=== PATIENT | female | born 1950 | race Caucasian/White ===

== ENCOUNTER 2017-10-25 08:14 | Day surgery (SDC) | payer MEDICARE, OTHER, SELFPAY ==
--- NOTE | 2017-10-24 17:33 | P.OP_ITS ---
Procedure & Clinicians Procedure: Date of service: October 25, 2017 Preoperative diagnoses: 1. Right nuclear sclerotic cataract astigmatism Cataract Postoperative diagnoses: 1. Cataract status post cataract surgery with phacoemulsification and toric intraocular lens implant Procedure: Phacoemulsification with posterior chamber intraocular lens implant Surgeon: Velia Hitchcock MD Complications: None Specimen: None Implant: [id number] [place] 104 Blood loss: None Anesthesia: Retrobulbar with monitored standby Anesthesiologist: Esa Nielson M.D. Description of procedure: Patient is a female year old with decreased vision due to cataract which is affecting activities of daily living. She wants surgery to improve vision. She was taken to the operating room. Proparacaine drops are placed and indeliable ink parnell placed at the 90 and 180 degree meridians. She was given IV sedation. A retrobulbar block insert consisting of 6 cc of 2% xylocaine without epinephrine mixed half and half with 0.5% Marcaine with 1 cc of hyaluronidase added is placed between the medial and lateral 1/3 of the inferior orbital rim. Lid akinesia is obtain with 1% xylocaine with epinephrine infiltrated along the lid margin. The eye is manually massaged for 30 sec, prepped using Betadine solution, and draped in the usual sterile fashion. Some awareness is present and additional Fentanyl is given. Temporal approach was made, a 1 mm side-port incision was made at the 7:30 position. Phenylephrine 1.5% mixed with 1% xylocaine 0.2 cc was placed into the anterior chamber. Viscoat followed by Healon was then placed. A 2.6 mm clear incision with a 2.6 mm blade was placed at the 170 degree meridian. A 360 degree capsulorrhexis style capsulotomy was then performed with a cystitome needle on a Healon. Hydrodelineation and hydrodissection were performed. The phacoemulsification unit is introduced, and sculpting notice used to groove the central lens. It is then removed in chopping mode. Epi nucleus is removed with epinuclear mode and irrigation aspiration was used to remove the peripheral cortex. The posterior capsule is polished. The intraocular lens is selected, inspected, power confirmed, and axis marked at 104 degrees. It wasplaced in the posterior chamber. The pupil was not constricted. The wound was stromally hydrated and tested for leaks, there was none it left sutureless. Vigamox 0.1 cc was placed into the anterior chamber. Kenalog 0.2 cc was placed in the superior subconjunctival space. A drop of antibiotic and was placed and the eye was patched and shielded. The patient was stable and returned to the recovery room in excellent condition. Dictated by: Velia Hitchcock MD Copy to: [facility] Same procedure as scheduled: Yes Surgeon: Velia Hitchcock Click Yes if Unassisted: No Anesthesia Type: Retrobulbar block Operative Notes Estimated Blood Loss (mL): 0 Complications: none
--- NOTE | 2017-10-24 17:33 | PM.PREOP ---
Pre-operative Note Interval Note Pre-op Check: History & Physical Reviewed by Physician
[2017-10-25 09:16] VITALS: BP 121/66; PULSE 55; RESP 16; TEMP 36.3; O2SAT 100
[2017-10-25] MEDS: CATARACT EYE COMPOUND (10 DROPS/SYRINGE) 3 DROPS EYE-OP (09:26)
[2017-10-25] MEDS: PROPARACAINE 0.5% OPHTH SOL 2 DROPS EYE-OP (09:26)
[2017-10-25 09:28] VITALS: BMI 32.5
--- NOTE | 2017-10-25 10:32 | SUR.OPER ---
Supine on eye stretcher, head on extension cradle secured with tape. Arms tucked at sides with blanket. Pillow under knees.
[2017-10-25] MEDS: LIDOCAINE 2% 4 ML, BUPIVACAINE 0.5% (PF) 4 ML, HYALURONIDASE 150 UNIT INJ (10:35)
[2017-10-25] MEDS: TRIAMCINOLONE 50 MG/5 ML VIAL INJ (10:36)
[2017-10-25] MEDS: PHENYLEPHRINE/LIDOCAINE 3ML VIAL (OR) EYE-OP (10:36)
[2017-10-25] MEDS: OFLOXACIN 0.3% OPHTH 5 ML 2 DROPS EYE-LEFT (10:36)
[2017-10-25] MEDS: NEOMYCIN/POLY/DEX OPHTH OINT 1 APPLIC EYE-LEFT (10:37)
[2017-10-25] MEDS: LIDOCAINE 1% W/EPI INJ 20 ML INJ (10:37)
[2017-10-25] MEDS: MOXIFLOXACIN OPHTH DROPS 3 ML BOTTLE 2 DROPS INJ (10:37)
[2017-10-25] MEDS: HYALURONATE SODIUM 10 MG/ML SYRINGE INJ (10:38)
[2017-10-25] MEDS: CHONDROIDTIN/SOD HYALURONATE 1.05 ML SYRINGE INTRAOCULA (10:38)
[2017-10-25] MEDS: BALANCED SALT IRRIG SOLN NO.2 500 ML, EPINEPHrine 1 MG IRR (10:39)
[2017-10-25] MEDS: TRYPAN BLUE 0.5 ML SYRINGE INJ (10:44)
[2017-10-25 11:22] VITALS: BP 120/68; PULSE 62; RESP 16; TEMP 36.2; O2SAT 99
--- NOTE | 2017-10-25 12:01 | PM.PREOP ---
Pre-operative Note Interval Note Pre-op Check: History & Physical Reviewed by Physician
== END 2017-10-25 11:32 | disposition home or self-care (01) ==
LOC: OR 08:16
PROVIDERS: PCP Family Medicine; Visit Provider Ophthalmology
DX: H25.11 Age-related nuclear cataract, right eye (principal); E11.9 Type 2 diabetes mellitus without complications; Z79.84 Long term (current) use of oral hypoglycemic drugs; I51.9 Heart disease, unspecified; I10 Essential (primary) hypertension; E03.9 Hypothyroidism, unspecified; Z86.73 Personal history of transient ischemic attack (TIA), and cerebral infarction without residual deficits
CPT/HCPCS: J0171; J2250; J2704; J3010; J3301; J3470; V2787

== ENCOUNTER → 2018-06-27 08:38 | Outpatient (CLI) | payer MEDICARE, OTHER, SELFPAY ==
--- NOTE | 2018-06-27 | DI.MG.S_ITS ---
BILATERAL DIGITAL SCREENING MAMMOGRAM 3D/2D WITH CAD: 06/27/2018 CLINICAL: Routine screening. Comparison is made to exams dated: 12/20/2016 mammogram - [facility] and 01/20/2015 mammogram - [facility]. The tissue of both breasts is predominantly fatty. Current study was also evaluated with a Computer Aided Detection (CAD) system. No significant masses, calcifications, or other findings are seen in either breast. There has been no significant interval change. IMPRESSION: NEGATIVE There is no mammographic evidence of malignancy. A 1 year screening mammogram is recommended. This exam was interpreted at Station ID: [id number]. NOTE: For mammograms, a report in lay terms will be sent to the patient. Approximately 15% of breast malignancies will not be visualized mammographically. In the management of a palpable breast mass, a negative mammogram must not discourage biopsy of a clinically suspicious lesion. Electronically Signed By: Karla cantrell/liborio:06/27/2018 10:57:32 letter sent: Normal Exam ACR BI-RADS Category 1: Negative 3341F
== END ==
PROVIDERS: PCP Family Medicine; Visit Provider Internal Medicine
DX: Z12.31 Encounter for screening mammogram for malignant neoplasm of breast (principal)
CPT/HCPCS: 77063; 77067

== ENCOUNTER 2018-11-21 10:41 | Day surgery (SDC) | payer MEDICARE, OTHER, SELFPAY ==
--- NOTE | 2018-11-21 | PATH_ITS ---
[facility] Accession Number: [id number] . 01 Material submitted: . colon - CECAL POLYP . 02 Diagnosis: Cecum, Polyp: Sessile serrated adenoma. V/11/22/2018 . 02 Electronically signed: . David Thornton MD, PhD, Pathologist NPI- [id number] . 01 Gross description: . CECAL POLYP: Received in formalin are 3 fragment(s) of benson, soft tissue measuring 0.1 x 0.1 x 0.1 cm to 0.5 x 0.4 x 0.2 cm which is entirely submitted and submitted entirely in 1 cassette(s) /DMC /DMC . 02 Pathologist provided ICD-10: D12.0 . 02 CPT . 688085 Performed at: 01 [facility] [address] [id number] MD Wolf Carpenter MD Phone: [phone] Performed at: 02 [facility] [address] [place], [place] [id number] MD Shelley Rosario MD Phone: [phone]
[2018-11-21 11:42] VITALS: BMI 69.9
[2018-11-21 11:54] VITALS: BP 132/74; PULSE 62; RESP 18; TEMP 36.3; O2SAT 100
[2018-11-21] MEDS: SODIUM CHLORIDE 0.9% 1,000 ML 200 ML IV (11:58)
--- NOTE | 2018-11-21 13:11 | P.HP_ITS ---
History of Present Illness Chief complaint: [id number] Patient History Social History household members: spouse Smoking Status: Former smoker Family & Social History Social History: household members spouse Tobacco & Substance use: Smoking Status Former smoker alcohol intake frequency 0-2 drinks per day Substance Use Type does not use Meds Home Medications Medication Instructions Recorded Confirmed Type atorvastatin [Lipitor] 40 mg PO HS #0 08/03/17 11/21/18 History aspirin [Aspir-Low] 81 mg PO QHS 09/29/17 11/21/18 History cholecalciferol (vitamin D3) 1,000 unit PO DAILY 09/29/17 11/21/18 History [Vitamin D3] ferrous sulfate 325 mg PO QDAY 09/29/17 11/21/18 History fexofenadine 180 mg PO QDAY 09/29/17 11/21/18 History levothyroxine [Synthroid] 50 mcg PO QDAY 09/29/17 11/21/18 History metformin 500 mg PO QDAY 09/29/17 11/21/18 History multivitamin 1 tab PO DAILY 09/29/17 11/21/18 History polyethylene glycol 3350 [Miralax] 17 g PO DAILY PRN 09/29/17 11/21/18 History ranitidine HCl 150 mg PO BID 09/29/17 11/21/18 History lisinopril 5 mg PO DAILY 10/18/17 11/21/18 History vitamin B complex tablet 1 tab PO DAILY 04/24/18 11/21/18 History quetiapine 50 mg tablet 100 mg PO HS #180 tab 06/12/18 11/21/18 Rx lamotrigine 100 mg tablet 100 mg PO DAILY #90 tab 10/24/18 11/21/18 Rx lamotrigine 200 mg tablet 200 mg PO DAILY #90 tab 10/24/18 11/21/18 Rx Allergies Allergy/AdvReac Type Severity Reaction Status Date / Time nitrofurantoin Allergy Severe SEVERE Verified 11/21/18 11:37 [From MACROBID] HEADACHES adhesive tape Allergy Intermediate Blister Verified 11/21/18 11:37 hydrocodone [From VICODIN] Allergy Unknown trouble Verified 11/21/18 11:37 breathing zolpidem [ZOLPIDEM] Allergy Unknown sleep Verified 11/21/18 11:37 walking/cooking indomethacin Allergy Dizziness Verified 11/21/18 11:37 oxycodone Allergy Rash Verified 11/21/18 11:37 codeine [CODEINE] AdvReac Unknown itching Verified 11/21/18 11:37 amoxicillin AdvReac Verified 11/21/18 11:37 tramadol AdvReac vertigo Verified 11/21/18 11:37 Review of Systems Review of Systems All systems reviewed & are unremarkable except as noted in HPI and below Exam Vital Signs (past 8 hours): - 11/21/18 11:54 Temperature 97.3 F L Pulse Rate 62 Respiratory Rate 18 Blood Pressure 132/74 Pulse Oximetry 100 Oxygen Delivery Method Room Air Narrative Exam Narrative: Awake alert and oriented x3, pupils equal round reactive to lig ht, heart regular rate and rhythm, lungs clear to auscultation bilaterally, abdomen nontender and nondistended, extremities without edema, no gross neurologic deficits noted Assessment & Plan Assessment & Plan narrative: Colonoscopy colon cancer screening
[2018-11-21] MEDS: MIDAZOLAM 5 MG/5 ML VIAL IV (14:15)
[2018-11-21] MEDS: fentaNYL 250 MCG/5 ML INJ IV (14:16)
[2018-11-21 14:33] VITALS: BP 105/58; PULSE 67; RESP 12; TEMP 35.9; O2SAT 98
[2018-11-21 14:38] VITALS: BP 118/57; PULSE 74; RESP 12; O2SAT 98
--- NOTE | 2018-11-21 14:39 | PM.OP.ENDO ---
Operative Date/Time/Diagnoses Date of procedure: 11/21/18 Procedure & Clinicians Study performed: Colonoscopy with snare polypectomy Moderate conscious sedation was administered by the endoscopy nurse and supervised by the endoscopist. The following parameters were monitored: Oxygen saturation, heart rate, blood pressure, and response to care. Sedation: 5 mg midazolam, 150 mcg fentanyl Indications: Colon cancer screening. Date of last colonoscopy unknown Procedure Notes Procedure in detail: Prior to the procedure, history and physical was performed, and patient medications and allergies were reviewed. Preprocedure nursing history and assessment was reviewed. Patient identification and proposed procedure were verified by the physician and nurse in the procedure room. The physical status of the patient was reassessed after the procedure. After informed consent was obtained including risks, benefits, and alternatives, the scope was passed under direct vision. Throughout the procedure, the patient's blood pressure, pulse, and oxygen saturations were monitored continuously. The colonoscope was introduced through the anus and advanced to the cecum as identified by the appendiceal orifice and ileocecal valve. The patient tolerated the procedure well. Bowel prep was deemed adequate to detect polyps greater than 5 mm. Perianal and digital rectal examinations were unremarkable. Retroflexion in the rectum was unrevealing A 6 mm sessile polyp was removed from the cecum with a cold snare and retrieved A moderate amount of liquid stool was noted throughout the entire colon. Lavage was performed with adequate visualization Impression: 6 mm cecal polyp removed Sedation minutes: 24 Complications: other (EBL minimal. No complications) Plan for aftercare: Follow-up pathology results Repeat colonoscopy at a date to be determined based on pathology results Resume home medications Resume previous diet Patient has a contact number available for emergencies. The signs and symptoms of potential delayed complications were discussed with the patient. Return to normal activities tomorrow. Written discharge instructions were provided to the patient. Discharged home with escort
[2018-11-21 14:43] VITALS: BP 116/68; PULSE 69; RESP 11; O2SAT 96
[2018-11-21 15:07] VITALS: BP 138/68; PULSE 58; RESP 16; TEMP 37; O2SAT 100
== END 2018-11-21 15:13 | disposition home or self-care (01) ==
PROVIDERS: PCP Family Medicine; Visit Provider Internal Medicine
PROC: 0DJD8ZZ Inspection of Lower Intestinal Tract, Via Natural or Artificial Opening Endoscopic (ICD-10-PCS; CPT 45378; principal; 2018-11-21 13:00)
DX: Z12.11 Encounter for screening for malignant neoplasm of colon (principal); Z87.891 Personal history of nicotine dependence; D12.0 Benign neoplasm of cecum
CPT/HCPCS: 45385; 88305; J2250; J3010

== ENCOUNTER → 2018-12-13 10:27 | Outpatient (CLI) | payer MEDICARE, OTHER, SELFPAY ==
--- NOTE | 2018-12-13 15:16 | P.PCN_ITS ---
Cardiac Stress Test Report Referral & Results Date Patient Seen: 12/13/18 Requesting provider: James Brandon Indication: Abnormal standard treadmill Rest ECG: Unremarkable Procedure Note: After both written and verbal informed consent the patient had an IV started by the diagnostic imaging RN and then was hooked up to the treadmill monitoring system. The patient was placed on the treadmill at 1 mile an hour with no elevation and was then injected with the Crys scan material. The Cardiolite was then immediately administered. The patient spent an additional 2-3 minutes on the treadmill before being returned to the [facility] in the supine position. The patient had a normal response to all infused materials. Impression: See perfusion imaging report for details regarding possible ischemia Please note: Actual ECG tracings can be found in the PACS system.
--- NOTE | 2018-12-13 16:45 | DI.NM.S_ITS ---
DATE OF SERVICE: 12/13/2018 PROCEDURE PERFORMED: Pharmacologic stress and rest myocardial perfusion imaging with gating to assess ejection fraction and regional wall motion performed as a 1-day protocol. ORDERING PROVIDER: James Brandon MD. INDICATIONS: The patient is an 68-year-old female with exertional dyspnea and chest discomfort with an abnormal standard exercise treadmill test. CARDIAC STRESS: Per protocol, 0.4 mg of regadenoson was infused, augmented by low-level walking on the treadmill. With this she had dyspnea but no reported chest discomfort. She had a normal hemodynamic response. Her resting ECG is normal and there are no ischemic changes or arrhythmias with stress. Per protocol, she was injected with 26.4 mCi of technetium-99 Myoview at peak stress and imaged 30 minutes later using a gated SPECT protocol. Previously, she had been injected with 11.3 mCi of technetium-99 Myoview and imaged 30 minutes after that injection for the resting images. FINDINGS: 1. Raw Data: There is fair myocardial tracer uptake with clear moderate breast attenuation artifact noted. The lung/heart ratio is at the upper limits of normal at 0.40 and the TID ratio is normal at 1.03. 2. Quantitative Gated SPECT: Post stress ejection fraction is estimated at 84% without any focal wall motion abnormality. Specifically, the anterior wall and anteroapex have normal contractility. The resting ejection fraction is estimated at 79% with a resting end-diastolic volume of 66 mL. 3. Myocardial Perfusion Imaging: Post stress supine images shows a fairly normal myocardial perfusion imaging pattern but with a very subtle defect in the [id number] anterior septum in a pattern that would be consistent with breast attenuation artifact and supported by its improvement on the prone images, although it does not completely resolve. The resting images show an identical perfusion pattern without any clear areas of improvement. CONCLUSION: 1. Probable normal myocardial perfusion study. 2. Subtle, fixed, [id number] anterior defect that nearly resolves on prone imaging consistent with breast attenuation artifact. There is no concerning areas of myocardial ischemia or previous myocardial infarction. 3. Normal left ventricular systolic function without any focal wall motion abnormality. 4. No apparent angina or ECG changes of ischemia with pharmacologic vasodilator stress. Yen Sheikh - MARILYN/jess/ doc#: [id number]/job#: [id number] dd: 12/13/2018 16:26:00 dt: 12/13/2018 16:34:00 DICTATING MD/COPIES TO: Fernando Mann MD; James Brandon MD COPIES MNE: ROE AMARO
== END ==
PROVIDERS: PCP Internal Medicine; Visit Provider Internal Medicine
DX: R07.89 Other chest pain (principal); R06.09 Other forms of dyspnea
CPT/HCPCS: 78452; 93016; 93017; 93018; A9502; J2785

== ENCOUNTER → 2018-12-28 08:48 | Outpatient (CLI) | payer MEDICARE, OTHER, SELFPAY ==
--- NOTE | 2018-12-28 | DI.US.S_ITS ---
PROCEDURE: US THYROID INDICATIONS: THYROID NODULE TECHNIQUE: Real-time scanning was performed of the thyroid gland, with image documentation. COMPARISON: None. FINDINGS: Right: Thyroid lobe measures 4.6 x 1.8 x 1.7 cm, and is homogeneous in echotexture. Left: Thyroid lobe measures 4.2 x 1.4 x 1.5 cm, and is homogenous in echotexture. Isthmus: 3 mm thick. Nodule number: 1 Location: Right superior pole Size: 1.9 x 1.0 x 1.7 cm. Composition: Cystic Echogenicity: Anechoic Shape: wider than tall. Margins: Smooth Echogenic foci: Macrocalcifications Total points: 1 ACR TI-RADS category: Benign Nodule number: 2 Location: Right mid lobe Size: 1.1 x 0.6 x 0.9 cm. Composition: Cystic Echogenicity: Anechoic Shape: wider than tall. Margins: Smooth Echogenic foci: Macrocalcifications Total points: 1 ACR TI-RADS category: Benign Nodule number: 3 Location: Left upper pole Size: 0.5 x 0.4 x 0.5 cm. Composition: Cystic Echogenicity: Anechoic Shape: wider than tall. Margins: Smooth Echogenic foci: None Total points: Zero ACR TI-RADS category: Benign IMPRESSION: Multiple benign bilateral thyroid cysts as above. FNA not needed. ACR TI-RADS definitions and recommendations: TI-RADS 1 (benign): 0 points. FNA not needed. TI-RADS 2 (not suspicious): 2 points. FNA not needed. TI-RADS 3 (mildly suspicious): 3 points. * FNA if 2.5 cm or larger, follow up if 1.5 cm or larger (at 1, 3, and 5 years). TI-RADS 4 (moderately suspicious): 4-6 points. * FNA if 1.5 cm or larger, follow up if 1 cm or larger (at 1, 2, 3, and 5 years). TI-RADS 5 (highly suspicious): 7 points or more. * FNA if 1 cm or larger, follow up if 0.5 cm or larger (every year for 5 years). Dictated by: Dank Knapp M.D. on 12/28/2018 at 14:12 Approved by: Dank Knapp M.D. on 12/28/2018 at 14:23
== END ==
PROVIDERS: PCP Internal Medicine; Visit Provider Internal Medicine
DX: E04.2 Nontoxic multinodular goiter (principal)
CPT/HCPCS: 76536

== ENCOUNTER 2019-04-24 01:14 | Emergency (ER) | payer MEDICARE, OTHER, SELFPAY ==
[2019-04-24 01:28] VITALS: BP 135/57; PULSE 72; RESP 20; TEMP 36.6; O2SAT 100
--- NOTE | 2019-04-24 01:34 | DI.RAD.S_ITS ---
PROCEDURE: XR CHEST 1V INDICATIONS: cough, recent diagnosis of pneumonia TECHNIQUE: One view of the chest was acquired. COMPARISON: None. FINDINGS: Surgical changes and devices: Cholecystectomy clips. Lungs and pleura: Lungs are clear. No pleural effusions or pneumothorax. Mediastinum: Mediastinal contours appear normal. Heart size is normal. Bones and chest wall: No suspicious bony lesions. Overlying soft tissues appear unremarkable. IMPRESSION: No acute cardiopulmonary disease process. Dictated by: Cassy Huizar MD, PhD on 04/24/2019 at 8:47 Approved by: Cassy Huizar MD, PhD on 04/24/2019 at 8:48
--- NOTE | 2019-04-24 01:34 | ED_ITS ---
HPI - URI/Sore Throat General Chief Complaint: Upper Respiratory Symptoms Stated Complaint: has pneumonia coughing spasms hard to breath Time Seen by Provider: 04/24/19 01:19 Source: patient Mode of arrival: Ambulatory Limitations: no limitations History of Present Illness HPI Narrative: A 68-year-old female comes into the emergency department with complaint of pneumonia that is currently being treated with azithromycin. Patient states she was diagnosed clinically. She did have a chest x-ray was started on azithromycin on Monday, she had 2 tablets the day and 1 tablet on Monday. Patient denies fevers. She felt maybe a little chilled. She has had a productive cough that she states was very gross thick yellow and multi colored and is now become more clear and decreased but she continues to have a pretty significant cough that is sometimes a spasm of coughing. She has not vomited but has coughed up a lot of phlegm. She does not feel tight or wheezy but does have a history of asthma. She uses Flovent as needed and sometimes albuterol. She did try albuterol once with minimal improvement. She denies any vomiting, denies any abdominal pain, denies any GI or urinary symptoms. She denies any swelling in her lower extremities. she denies any chest pain except when she is actively coughing. She denies any hemoptysis. She takes medication for bipolar, hypertension and dyslipidemia, hypothyroid. Related Data Home Medications Medication Instructions Recorded Confirmed atorvastatin [Lipitor] 40 mg PO HS #0 08/03/17 03/28/19 aspirin 81 mg PO QHS 09/29/17 03/28/19 ferrous sulfate 325 mg PO QDAY 09/29/17 03/28/19 fexofenadine 180 mg PO QDAY 09/29/17 03/28/19 levothyroxine 50 mcg PO QDAY 09/29/17 03/28/19 metformin 500 mg PO QDAY 09/29/17 03/28/19 multivitamin 1 tab PO DAILY 09/29/17 03/28/19 polyethylene glycol 3350 [Miralax] 17 g PO DAILY PRN 09/29/17 03/28/19 ranitidine HCl 150 mg PO BID 09/29/17 03/28/19 lisinopril 5 mg PO DAILY 10/18/17 03/28/19 vitamin B complex 1 tab PO DAILY 04/24/18 03/28/19 albuterol sulfate 90 mcg/actuation INHALATION 01/29/19 03/28/19 aerosol inhaler cholecalciferol (vitamin D3) 1,000 2,000 unit PO DAILY cap 01/29/19 03/28/19 unit capsule fluticasone propionate 110 INHALATION 01/29/19 03/28/19 mcg/actuation HFA aerosol inhaler omeprazole 20 mg capsule,delayed 20 mg PO BID 02/25/19 03/28/19 release Previous Rx's Medication Instructions Recorded quetiapine 50 mg tablet 100 mg PO HS #180 tab 06/12/18 lamotrigine 100 mg tablet 100 mg PO DAILY #90 tab 10/24/18 lamotrigine 200 mg tablet 200 mg PO DAILY #90 tab 10/24/18 gabapentin 300 mg capsule 300 mg PO TID #270 cap 01/29/19 quetiapine 25 mg tablet See Rx Instructions PO BID #90 tab 01/29/19 lithium carbonate 300 mg capsule 300 mg PO BEDTIME #90 cap 03/28/19 benzonatate 200 mg PO TID PRN #20 cap 04/24/19 Allergies Allergy/AdvReac Type Severity Reaction Status Date / Time nitrofurantoin Allergy Severe SEVERE Verified 03/28/19 12:59 [From MACROBID] HEADACHES adhesive tape Allergy Intermediate Blister Verified 03/28/19 12:59 hydrocodone [From VICODIN] Allergy Unknown trouble Verified 03/28/19 12:59 breathing zolpidem [ZOLPIDEM] Allergy Unknown sleep Verified 03/28/19 12:59 walking/cooking indomethacin Allergy Dizziness Verified 03/28/19 12:59 oxycodone Allergy Rash Verified 03/28/19 12:59 codeine [CODEINE] AdvReac Unknown itching Verified 03/28/19 12:59 amoxicillin AdvReac Verified 03/28/19 12:59 tramadol AdvReac vertigo Verified 03/28/19 12:59 Review of Systems Review of Systems ROS Unobtainable: All systems reviewed & are unremarkable except as noted in HPI and below Constitutional Constitutional: Reports chills, Denies fever(s), Denies lethargy and Denies weakness Cardiovascular Cardiovascular: Denies chest pain, Denies edema, Denies irregular heart rhythm, Denies lightheadedness, Denies palpitations, Denies dyspnea, Denies dyspnea on exertion and Denies orthopnea Respiratory Respiratory: Reports change in phlegm color, Reports chest congestion, Reports cough, Denies hemoptysis, Reports excessive phlegm production (Improving), Denies pain on inspiration, Reports pain with cough, Denies dyspnea, Denies dyspnea on exertion, Denies stridor and Denies wheezing Gastrointestinal Gastrointestinal: Denies abdominal pain, Denies change in bowel habits, Denies diarrhea, Denies nausea and Denies vomiting Genitourinary Genitourinary: Denies hematuria, Denies urinary frequency, Denies dysuria, Denies flank pain and Denies urinary urgency Musculoskeletal Musculoskeletal: Denies back pain Integumentary/Breasts Skin/Breast: Denies rash Neurologic Neurologic: Denies weakness Endocrine Endocrine: Denies palpitations Allergic/Immunologic Allergic/Immunologic: Denies wheezing Patient History Social History household members: spouse Smoking Status: Former smoker alcohol intake frequency: 0-2 drinks per day Substance Use Type: does not use Exam Narrative Exam Narrative: GEN: well nourished, well appearing obese female, alert and leah ented x 3, patient appears to be in mild distress. HEENT: Atraumatic, pupils are equal round reactive to light, extraocular movements are intact, nares are clear, TMs are clear with no fluid. Throat is without any exudates, erythema, tonsillar enlargement or uvular deviation, positive for postnasal drip. HEART: Regular rate and rhythm without murmur, clicks, rubs. LUNGS:Lungs clear to auscultation, no wheezes, rales, crackles, chest moves symmetrically, no tachypnea, accessory muscle use. Patient has a very dry almost barky cough. ABD:bowel sounds normal, soft, non-tender, no guarding, rebound, rigidity, no masses noted, no hepatosplenomegaly :No CVA tenderness MSCL: Non-tender, no muscle atrophy, muscles strength 5/5 upper and lower extremities, full range of motion, normal gait NEURO:CN 2-12 intact, sensation normal. Initial Vital Signs Initial Vital Signs: Vital Signs Temperature 97.9 F 04/24/19 01:28 Pulse Rate 72 04/24/19 01:28 Respiratory Rate 20 04/24/19 01:28 Blood Pressure 135/57 L 04/24/19 01:28 Pulse Oximetry 100 04/24/19 01:28 Course Orders Ordered: ED Orders 04/24/19 01:34 XR chest 1V Stat Discontinued Medications Albuterol (Ventolin) 2.5 mg INH NOW ONE Stop: 04/24/19 01:37 Last Admin: 04/24/19 01:39 Dose: 2.5 mg Documented by: RAEGANARP Vital Signs Vital signs: Vital Signs - 8 hr 04/24/19 01:28 04/24/19 01:39 04/24/19 02:31 Temperature 97.9 F Pulse Rate 72 76 Respiratory Rate 20 18 Blood Pressure 135/57 L 120/60 Pulse Oximetry 100 96 98 MDM - URI/Sore Throat Imaging Data Chest x-ray: My impression: nap, no pulm edema, no pneumothorax, no nodules, no fracture. normal mediastinum. MDM Narrative Medical decision making narrative: Patient has history of asthma, had one albuterol neb and on recheck she is her cough is improved although not completely resolved. Discussed with patient she does not have a spacer so plan for spacer training, she does have an albuterol inhaler at home. She can uses as needed. We discussed she can stop her Z-S[place] if she would like to but it may be helpful although I do not appreciate a pneumonia or chest x-ray she can continue her Z-S[place]. Patient and I discussed trying some Tessalon Perles to see if this helps with her cough. She states she is allergic to codeine. We discussed signs and symptoms to return for and strict return precautions. Patient is comfortable the plan and feeling much better at this time. Discharge Plan Departure Patient Disposition: Home Clinical Impression: Bronchitis Discharge Date/Time: 04/24/19 02:32 Instructions: DI for Acute Bronchitis Activity Restrictions/Additional Instructions: Follow up with your primary care if your symptoms are not improving. You may continue your prescription for antibiotics until gone. You may use albuterol 1-2 puffs every 4 hours as needed for cough or any wheezing. Use this with the spacer you received today. May take Tessalon 1 capsule every 8 hours as needed for cough. Continue home medications as prescribed. Return to the ER for fevers greater 100.4 F, rapidly worsening shortness of breath, coughing up blood, new chest pain or pressure, passing out, swelling in her lower extremities or other new or concerning symptoms. Prescriptions: New benzonatate 200 mg capsule 200 mg PO TID PRN (Reason: cough) Qty: 20 RF: 0 No Action vitamin B complex [B Complex-Vitamin B12] tablet 1 tab PO DAILY RF: 0 quetiapine 50 mg tablet 100 mg PO HS Qty: 180 RF: 3 Flovent HFA 110 mcg/actuation HFA aerosol inhaler INHALATION RF: 0 albuterol sulfate 90 mcg/actuation HFA aerosol inhaler INHALATION RF: 0 gabapentin 300 mg capsule 300 mg PO TID Qty: 270 RF: 3 quetiapine 25 mg tablet See Rx Instructions PO BID Qty: 90 RF: 0 lithium carbonate 300 mg capsule 300 mg PO BEDTIME Qty: 90 RF: 0 omeprazole 20 mg capsule,delayed release(DR/EC) 20 mg PO BID RF: 0 atorvastatin [Lipitor] 40 MG tablet 40 mg PO HS Qty: 0 RF: 0 lamotrigine 200 mg tablet 200 mg PO DAILY Qty: 90 RF: 3 lamotrigine 100 mg tablet 100 mg PO DAILY Qty: 90 RF: 3 metformin 500 mg tablet 500 mg PO QDAY RF: 0 fexofenadine 180 mg tablet 180 mg PO QDAY RF: 0 aspirin 81 mg tablet,delayed release (DR/EC) 81 mg PO QHS RF: 0 levothyroxine 50 mcg tablet 50 mcg PO QDAY RF: 0 ferrous sulfate 325 mg (65 mg iron) Tablet 325 mg PO QDAY RF: 0 ranitidine HCl 150 mg tablet 150 mg PO BID RF: 0 multivitamin Tablet 1 tab PO DAILY RF: 0 polyethylene glycol 3350 [Miralax] 17 gram Powder In Packet 17 g PO DAILY PRN (Reason: Laxative Effect) RF: 0 cholecalciferol (vitamin D3) [Vitamin D3] 1,000 unit capsule 2,000 unit PO DAILY RF: 0 lisinopril 5 mg Tablet 5 mg PO DAILY RF: 0 Referrals: James Brandon MD [Primary Care Provider] -
[2019-04-24 01:39] VITALS: O2SAT 96
[2019-04-24] MEDS: ALBUTEROL 2.5 MG/3 ML NEB (ADULT) INH (01:39)
[2019-04-24 02:31] VITALS: BP 120/60; PULSE 76; RESP 18; O2SAT 98
== END 2019-04-24 02:32 | disposition home or self-care (01) ==
PROVIDERS: Emergency Provider Emergency Medicine; PCP Internal Medicine
DX: J40 Bronchitis, not specified as acute or chronic (principal)
CPT/HCPCS: 71045; 94640; 99282; 99283; J7613

== ENCOUNTER 2019-08-19 19:47 | Emergency (ER) | payer MEDICARE, OTHER, SELFPAY ==
[2019-08-19 19:55] VITALS: BP 128/63; PULSE 79; RESP 35; TEMP 36.9; O2SAT 96; BMI 35.4
[2019-08-19 20:06] VITALS: BP 128/63; PULSE 74; RESP 16; O2SAT 96
--- NOTE | 2019-08-19 20:07 | DI.RAD.S_ITS ---
PROCEDURE: XR CHEST 1V INDICATIONS: cough, sob TECHNIQUE: One view of the chest was acquired. COMPARISON: [facility], CR, XR CHEST 1V, 04/24/2019, 1:40. FINDINGS: Surgical changes and devices: None. Lungs and pleura: Lungs are clear. No pleural effusions or pneumothorax. Mediastinum: Mediastinal contours appear normal. Heart size is normal. Bones and chest wall: No suspicious bony lesions. Overlying soft tissues appear unremarkable. IMPRESSION: No acute cardiopulmonary disease process. Dictated by: Cassy Huizar MD, PhD on 08/19/2019 at 20:28 Approved by: Cassy Huizar MD, PhD on 08/19/2019 at 20:28
[2019-08-19 20:18] LABS: Add Manual Diff / Slide Review NO; Basophils Absolute Auto 0 /uL (0-100); Basophils Percent Auto 0.5 % (0-2); Eosinophils Absolute Auto 200 /uL (0-450); Eosinophils Percent Auto 5.5 % (2-4); Hematocrit 37.2 % (36-46); Hemoglobin 12.7 g/dL (12.0-16.0); Lymphocytes Absolute Auto 900 /uL (1100-4500); Lymphocytes Percent Auto 20.4 % (25-40); Mean Corpuscular Hemoglobin 32.4 PG (26-34); Mean Corpuscular Volume 95.1 fL (80-100); Monocytes Absolute Auto 500 /uL (0-900); Monocytes Percent Auto 12.4 % (3-14); Neutrophils Absolute Auto 2600 /uL (1500-7000); Neutrophils Percent Auto 61.2 % (50-75); Platelet Count 214 X10^3/uL (150-400); Red Blood Cell Count 3.91 X10^6/uL (4.0-5.2); Red Cell Distribution Width 13.5 % (11.6-14.8); White Blood Cell Count 4.2 X10^3/uL (4.5-11.0)
[2019-08-19 20:25] VITALS: PULSE 62; RESP 16; O2SAT 96
[2019-08-19] MEDS: ALBUTEROL/IPRATROPIUM 3 ML AMPUL INH (20:25)
--- NOTE | 2019-08-19 20:27 | ED.SOB ---
HPI - SOB/Dyspnea <Ashleigh Mart PA-C - Last Filed: 08/19/19 21:31> General Chief Complaint: Shortness of Breath/Dyspnea Stated Complaint: COUGH FEVER SOB Time Seen by Provider: 08/19/19 20:07 Source: patient Mode of arrival: Ambulatory Limitations: no limitations History of Present Illness HPI Narrative: This 68-year-old female comes to ED secondary to worsening cough and tight chest. She states that 5 days ago, she had onset of sinus congestion and clear drainage, thought she had a sinus infection with cough related to postnasal drip however cough has gradually worsened. She coughs in fits to the point she wants to vomit (has not). She states her chest feels tight and congested. She states her inhaler does help symptoms briefly, does not work as well as usual. Tessalon Perles also helped briefly. She has had low-grade temp to the 99 range at home. She denies sore throat or earache. She has not had body aches. She does not have chest pain. She states she is tired because cough is keeping her up at night. No vomiting or GI symptoms. She denies new lower extremity pain or swelling. She denies any travel or known exposures and has been isolating at home. Related Data Home Medications Medication Instructions Recorded Confirmed atorvastatin [Lipitor] 40 mg PO HS #0 08/03/17 07/02/19 aspirin 81 mg PO QHS 09/29/17 07/02/19 ferrous sulfate 325 mg PO QDAY 09/29/17 07/02/19 fexofenadine 180 mg PO QDAY 09/29/17 07/02/19 levothyroxine 50 mcg PO QDAY 09/29/17 07/02/19 metformin 500 mg PO QDAY 09/29/17 07/02/19 multivitamin 1 tab PO DAILY 09/29/17 07/02/19 polyethylene glycol 3350 [Miralax] 17 g PO DAILY PRN 09/29/17 07/02/19 ranitidine HCl 150 mg PO BID 09/29/17 07/02/19 lisinopril 5 mg PO DAILY 10/18/17 07/02/19 vitamin B complex 1 tab PO DAILY 04/24/18 07/02/19 cholecalciferol (vitamin D3) 25 2,000 unit PO DAILY cap 01/29/19 07/02/19 mcg (1,000 unit) capsule fluticasone propionate 110 INHALATION 01/29/19 07/02/19 mcg/actuation HFA aerosol inhaler omeprazole 20 mg capsule,delayed 20 mg PO BID 02/25/19 07/02/19 release albuterol sulfate 90 mcg/actuation INHALATION PRN 06/04/19 07/02/19 aerosol inhaler Previous Rx's Medication Instructions Recorded gabapentin 300 mg capsule 300 mg PO TID #270 cap 01/29/19 quetiapine 25 mg tablet See Rx Instructions PO BID #90 tab 01/29/19 benzonatate 200 mg PO TID PRN #20 cap 04/24/19 lamotrigine 100 mg tablet 300 mg PO DAILY #270 tab 04/29/19 lithium carbonate 300 mg capsule 300 mg PO BEDTIME #90 cap 04/29/19 quetiapine 50 mg tablet 100 mg PO HS #180 tab 04/29/19 benzonatate [Tessalon Perles] 200 mg PO Q8HR PRN #40 cap 08/19/19 Allergies Allergy/AdvReac Type Severity Reaction Status Date / Time nitrofurantoin Allergy Severe SEVERE Verified 08/01/19 12:53 [From MACROBID] HEADACHES adhesive tape Allergy Intermediate Blister Verified 08/01/19 12:53 hydrocodone [From VICODIN] Allergy Unknown trouble Verified 08/01/19 12:53 breathing zolpidem [ZOLPIDEM] Allergy Unknown sleep Verified 08/01/19 12:53 walking/cooking indomethacin Allergy Dizziness Verified 08/01/19 12:53 oxycodone Allergy Rash Verified 08/01/19 12:53 codeine [CODEINE] AdvReac Unknown itching Verified 08/01/19 12:53 amoxicillin AdvReac Verified 08/01/19 12:53 tramadol AdvReac vertigo Verified 08/01/19 12:53 Review of Systems <Ashleigh Mrat PA-C - Last Filed: 08/19/19 21:31> Review of Systems ROS Unobtainable: All systems reviewed & are unremarkable except as noted in HPI and below Patient History <Ashleigh Mart PA-C - Last Filed: 08/19/19 21:31> Medical History (Updated 08/19/19 @ 21:28 by Ashleigh Mart PA-C) Asthma (Chronic) HTN (hypertension) (Chronic) Hyperlipidemia (Chronic) Hypothyroidism (Chronic) Non-insulin dependent diabetes mellitus (Chronic) Surgical History (Updated 08/19/19 @ 20:42 by Ashleigh Mart PA-C) Status post surgery (Resolved) Social History household members: spouse Smoking Status: Former smoker Smoking Status: Former smoker alcohol intake frequency: 0-2 drinks per day Substance Use Type: does not use Exam <Ashleigh Mart PA-C - Last Filed: 08/19/19 21:31> Narrative Exam Narrative: GENERAL APPEARANCE: Patient sitting comfortably, in no distress. HEAD: No sinus TTP. EYES: PERRL, EOMI. ORAL CAVITY: Normal oropharynx. THROAT: Minimal erythema, no exudate, PND noted NECK/THYROID: Neck supple, full range of motion, no cervical lymphadenopathy. LUNGS: Coarse, generalized congested breath sounds with deep rhonchi, no crackles, wet cough on exam intermittently HEART: RRR without murmur, nl S1, S2, no S3 or S4. EXTREMITIES: No calf tenderness, no edema Initial Vital Signs Initial Vital Signs: Vital Signs Temperature 98.4 F 08/19/19 19:55 Pulse Rate 79 08/19/19 19:55 Respiratory Rate 35 H 08/19/19 19:55 Blood Pressure 128/63 08/19/19 19:55 Pulse Oximetry 96 08/19/19 19:55 <Myrna Mckeon DO - Last Filed: 08/19/19 22:46> Initial Vital Signs Initial Vital Signs: Vital Signs Temperature 98.4 F 08/19/19 19:55 Pulse Rate 79 08/19/19 19:55 Respiratory Rate 35 H 08/19/19 19:55 Blood Pressure 128/63 08/19/19 19:55 Pulse Oximetry 96 08/19/19 19:55 Course <Ashleigh Mart PA-C - Last Filed: 08/19/19 21:31> Course Additional Information: Patient's influenza swab and procalcitonin were pending at the time of sign-out. Normal chest x-ray. She felt slightly but not markedly improved following nebulizer treatment, speaking easily in complete sentences. Lungs are congested-on exam. We discussed this presents more of a picture of sinusitis/bronchitis with asthma exacerbation but we will likely want to do a danielle virus test as well. Advised treatment plan would not be altered related to this and she has been isolating at home as well. She is agreeable. Signed out to Dr. Mckeon Orders Ordered: ED Orders 08/19/19 20:00 Consult to Respiratory Therapy Evaluate & Treat 08/19/19 20:05 Complete Blood Count AUTO DIFF Stat Comprehensive Metabolic Panel Stat Influenza A & B (PCR) Stat Procalcitonin Stat 08/19/19 20:07 XR chest 1V Stat Discontinued Medications Albuterol/Ipratropium (Duoneb) 3 ml INH NOW ONE Stop: 08/19/19 20:01 Last Admin: 08/19/19 20:25 Dose: Not Given Documented by: MARIELA Albuterol/Ipratropium (Duoneb) 3 ml INH NOW ONE Stop: 08/19/19 20:08 Last Admin: 08/19/19 20:25 Dose: 3 ml Documented by: MARIELA Methylprednisolone (Solu-Medrol 125 Mg Vial) 125 mg IV NOW ONE Stop: 08/19/19 20:01 Last Admin: 08/19/19 21:21 Dose: Not Given Documented by: SOHEILA Prednisone (Deltasone 20 Mg Prepack) 1 bottle MIS SEEINSTR ONE Stop: 08/19/19 21:23 Last Admin: 08/19/19 21:34 Dose: 1 bottle Documented by: GABY Vital Signs Vital signs: Vital Signs - 8 hr 08/19/19 19:55 08/19/19 20:06 08/19/19 20:25 Temperature 98.4 F Pulse Rate 79 74 62 Respiratory Rate 35 H 16 16 Blood Pressure 128/63 Blood Pressure [Left Arm] 128/63 Pulse Oximetry 96 96 96 08/19/19 21:10 08/19/19 21:39 Temperature Pulse Rate 80 82 Respiratory Rate 25 H 16 Blood Pressure 123/63 Blood Pressure [Left Arm] 123/63 Pulse Oximetry 97 97 <yMrna Mckeon, DO - Last Filed: 08/19/19 22:46> Orders Ordered: ED Orders 08/19/19 20:00 Consult to Respiratory Therapy Evaluate & Treat 08/19/19 20:05 Complete Blood Count AUTO DIFF Stat Comprehensive Metabolic Panel Stat Influenza A & B (PCR) Stat Procalcitonin Stat 08/19/19 20:07 XR chest 1V Stat Discontinued Medications Albuterol/Ipratropium (Duoneb) 3 ml INH NOW ONE Stop: 08/19/19 20:01 Last Admin: 08/19/19 20:25 Dose: Not Given Documented by: MARIELA Albuterol/Ipratropium (Duoneb) 3 ml INH NOW ONE Stop: 08/19/19 20:08 Last Admin: 08/19/19 20:25 Dose: 3 ml Documented by: MARIELA Methylprednisolone (Solu-Medrol 125 Mg Vial) 125 mg IV NOW ONE Stop: 08/19/19 20:01 Last Admin: 08/19/19 21:21 Dose: Not Given Documented by: SOHEILA Prednisone (Deltasone 20 Mg Prepack) 1 bottle MISC SEEINSTR ONE Stop: 08/19/19 21:23 Last Admin: 08/19/19 21:34 Dose: 1 bottle Documented by: GABY Vital Signs Vital signs: Vital Signs - 8 hr 08/19/19 19:55 08/19/19 20:06 08/19/19 20:25 Temperature 98.4 F Pulse Rate 79 74 62 Respiratory Rate 35 H 16 16 Blood Pressure 128/63 Blood Pressure [Left Arm] 128/63 Pulse Oximetry 96 96 96 08/19/19 21:10 08/19/19 21:39 Temperature Pulse Rate 80 82 Respiratory Rate 25 H 16 Blood Pressure 123/63 Blood Pressure [Left Arm] 123/63 Pulse Oximetry 97 97 MDM - SOB/Dyspnea <Ashleigh Mart PA-C - Last Filed: 08/19/19 21:31> Lab Data Result diagrams: 08/19/19 20:05 08/19/19 20:05 Labs: Lab Results 08/19/19 08/19/19 08/19/19 Range/Units 20:05 20:05 20:05 WBC Cancelled RBC Cancelled Hgb Cancelled Hct Cancelled MCV Cancelled MCH Cancelled MCHC Cancelled RDW Cancelled Plt Count Cancelled Neut % (Auto) Cancelled Lymph % (Auto) Cancelled [place] % (Auto) Cancelled Eos % (Auto) Cancelled Baso % (Auto) Cancelled Neut # (Auto) Cancelled Lymph # (Auto) Cancelled [place] # (Auto) Cancelled Eos # (Auto) Cancelled Baso # (Auto) Cancelled Sodium Cancelled Potassium Cancelled Chloride Cancelled Carbon Dioxide Cancelled BUN Cancelled Creatinine Cancelled Estimated GFR Cancelled BUN/Creatinine Ratio Cancelled Glucose Cancelled Lactate Calcium Cancelled Magnesium Cancelled Total Bilirubin (0.2-1.3) mg/dL AST (14-36) IU/L ALT (<35) IU/L Alkaline Phosphatase (38-126) U/L Total Creatine Kinase Cancelled CK-MB (CK-2) Cancelled CK-MB (CK-2) Rel Index Cancelled Troponin I Cancelled Total Protein (6.3-8.2) g/dL Albumin (3.5-5.0) g/dL Globulin (1.7-4.1) g/dL Albumin/Globulin Ratio (1.0-2.8) Procalcitonin Cancelled Influenza A (RT-PCR) (NEGATIVE) Influenza B (RT-PCR) (NEGATIVE) 08/19/19 08/19/19 08/19/19 Range/Units 20:05 20:05 20:05 WBC 4.2 L RBC 3.91 L Hgb 12.7 Hct 37.2 MCV 95.1 MCH 32.4 MCHC 34.0 RDW 13.5 Plt Count 214 Neut % (Auto) 61.2 Lymph % (Auto) 20.4 L [place] % (Auto) 12.4 Eos % (Auto) 5.5 H Baso % (Auto) 0.5 Neut # (Auto) 2600 Lymph # (Auto) 900 L [place] # (Auto) 500 Eos # (Auto) 200 Baso # (Auto) 0 Sodium Potassium Chloride Carbon Dioxide BUN Creatinine Estimated GFR BUN/Creatinine Ratio Glucose Lactate Cancelled Calcium Magnesium Total Bilirubin (0.2-1.3) mg/dL AST (14-36) IU/L ALT (<35) IU/L Alkaline Phosphatase (38-126) U/L Total Creatine Kinase CK-MB (CK-2) CK-MB (CK-2) Rel Index Troponin I Total Protein (6.3-8.2) g/dL Albumin (3.5-5.0) g/dL Globulin (1.7-4.1) g/dL Albumin/Globulin Ratio (1.0-2.8) Procalcitonin < 0.05 Influenza A (RT-PCR) (NEGATIVE) Influenza B (RT-PCR) (NEGATIVE) 08/19/19 08/19/19 Range/Units 20:05 20:05 WBC RBC Hgb Hct MCV MCH MCHC RDW Plt Count Neut % (Auto) Lymph % (Auto) [place] % (Auto) Eos % (Auto) Baso % (Auto) Neut # (Auto) Lymph # (Auto) [place] # (Auto) Eos # (Auto) Baso # (Auto) Sodium 135 L Potassium 4.3 Chloride 104 Carbon Dioxide 24 BUN 10 Creatinine 0.54 Estimated GFR > 60.0 BUN/Creatinine Ratio 18.5 Glucose 115 H Lactate Calcium 9.5 Magnesium Total Bilirubin 0.3 (0.2-1.3) mg/dL AST 39 H (14-36) IU/L ALT 29 (<35) IU/L Alkaline Phosphatase 78 (38-126) U/L Total Creatine Kinase CK-MB (CK-2) CK-MB (CK-2) Rel Index Troponin I Total Protein 6.9 (6.3-8.2) g/dL Albumin 4.1 (3.5-5.0) g/dL Globulin 2.8 (1.7-4.1) g/dL Albumin/Globulin Ratio 1.5 (1.0-2.8) Procalcitonin Influenza A (RT-PCR) Flu a negative (NEGATIVE) Influenza B (RT-PCR) Flu b negative (NEGATIVE) Urine Dip Bedside Urine Glucose Negative Bedside Urine Bilirubin + 1 Bedside Urine Ketone - Negative Urine Specific [place] 1.015 Bedside Urine Occult Blood - Negative Bedside Urine pH 6.0 Bedside Urine Protein - Negative Bedside Urine Urobilinogen - Negative Bedside Urine Nitrite - Negative Bedside Urine Leukocytes - Negative Esterase <Myrna Mckeon, DO - Last Filed: 08/19/19 22:46> Lab Data Attestation: I reviewed the patient's lab results. Labs: Lab Results 08/19/19 08/19/19 08/19/19 Range/Units 20:05 20:05 20:05 WBC Cancelled RBC Cancelled Hgb Cancelled Hct Cancelled MCV Cancelled MCH Cancelled MCHC Cancelled RDW Cancelled Plt Count Cancelled Neut % (Auto) Cancelled Lymph % (Auto) Cancelled [place] % (Auto) Cancelled Eos % (Auto) Cancelled Baso % (Auto) Cancelled Neut # (Auto) Cancelled Lymph # (Auto) Cancelled [place] # (Auto) Cancelled Eos # (Auto) Cancelled Baso # (Auto) Cancelled Sodium Cancelled Potassium Cancelled Chloride Cancelled Carbon Dioxide Cancelled BUN Cancelled Creatinine Cancelled Estimated GFR Cancelled BUN/Creatinine Ratio Cancelled Glucose Cancelled Lactate Calcium Cancelled Magnesium Cancelled Total Bilirubin (0.2-1.3) mg/dL AST (14-36) IU/L ALT (<35) IU/L Alkaline Phosphatase (38-126) U/L Total Creatine Kinase Cancelled CK-MB (CK-2) Cancelled CK-MB (CK-2) Rel Index Cancelled Troponin I Cancelled Total Protein (6.3-8.2) g/dL Albumin (3.5-5.0) g/dL Globulin (1.7-4.1) g/dL Albumin/Globulin Ratio (1.0-2.8) Procalcitonin Cancelled Influenza A (RT-PCR) (NEGATIVE) Influenza B (RT-PCR) (NEGATIVE) 08/19/19 08/19/19 08/19/19 Range/Units 20:05 20:05 20:05 WBC 4.2 L RBC 3.91 L Hgb 12.7 Hct 37.2 MCV 95.1 MCH 32.4 MCHC 34.0 RDW 13.5 Plt Count 214 Neut % (Auto) 61.2 Lymph % (Auto) 20.4 L [place] % (Auto) 12.4 Eos % (Auto) 5.5 H Baso % (Auto) 0.5 Neut # (Auto) 2600 Lymph # (Auto) 900 L [place] # (Auto) 500 Eos # (Auto) 200 Baso # (Auto) 0 Sodium Potassium Chloride Carbon Dioxide BUN Creatinine Estimated GFR BUN/Creatinine Ratio Glucose Lactate Cancelled Calcium Magnesium Total Bilirubin (0.2-1.3) mg/dL AST (14-36) IU/L ALT (<35) IU/L Alkaline Phosphatase (38-126) U/L Total Creatine Kinase CK-MB (CK-2) CK-MB (CK-2) Rel Index Troponin I Total Protein (6.3-8.2) g/dL Albumin (3.5-5.0) g/dL Globulin (1.7-4.1) g/dL Albumin/Globulin Ratio (1.0-2.8) Procalcitonin < 0.05 Influenza A (RT-PCR) (NEGATIVE) Influenza B (RT-PCR) (NEGATIVE) 08/19/19 08/19/19 Range/Units 20:05 20:05 WBC RBC Hgb Hct MCV MCH MCHC RDW Plt Count Neut % (Auto) Lymph % (Auto) [place] % (Auto) Eos % (Auto) Baso % (Auto) Neut # (Auto) Lymph # (Auto) [place] # (Auto) Eos # (Auto) Baso # (Auto) Sodium 135 L Potassium 4.3 Chloride 104 Carbon Dioxide 24 BUN 10 Creatinine 0.54 Estimated GFR > 60.0 BUN/Creatinine Ratio 18.5 Glucose 115 H Lactate Calcium 9.5 Magnesium Total Bilirubin 0.3 (0.2-1.3) mg/dL AST 39 H (14-36) IU/L ALT 29 (<35) IU/L Alkaline Phosphatase 78 (38-126) U/L Total Creatine Kinase CK-MB (CK-2) CK-MB (CK-2) Rel Index Troponin I Total Protein 6.9 (6.3-8.2) g/dL Albumin 4.1 (3.5-5.0) g/dL Globulin 2.8 (1.7-4.1) g/dL Albumin/Globulin Ratio 1.5 (1.0-2.8) Procalcitonin Influenza A (RT-PCR) Flu a negative (NEGATIVE) Influenza B (RT-PCR) Flu b negative (NEGATIVE) Urine Dip Bedside Urine Glucose Negative Bedside Urine Bilirubin + 1 Bedside Urine Ketone - Negative Urine Specific [place] 1.015 Bedside Urine Occult Blood - Negative Bedside Urine pH 6.0 Bedside Urine Protein - Negative Bedside Urine Urobilinogen - Negative Bedside Urine Nitrite - Negative Bedside Urine Leukocytes - Negative Esterase MDM Narrative Medical decision making narrative: Patient case was discussed with myself, patient was ultimately discharged by LAKISHA Mart has all labs and imaging had returned prior to patient being turned over to myself. Discussed that there is potential for coronavirus does have negative CXR, she does have leukopenia with low lymphocyte percentage. Is in a feels are elevated. Sodium is 135 and glucose of 115 otherwise normal electrolytes and renal function. procalcitonin is negative. influenza is negative and coronavirus 19 swab was sent and will be pending likely 5-6 days. But patient also has a history of asthma, she responded well to albuterol, we did discuss a short course of steroids. Given Tessalon pro refill and she has albuterol at home. She was given return precautions. Discharge Plan Departure Patient Disposition: Home Clinical Impression: Bronchitis Asthma with acute exacerbation Qualifiers: Asthma severity: moderate Asthma persistence: persistent Qualified Code(s): J45.41 - Moderate persistent asthma with (acute) exacerbation Discharge Date/Time: 08/19/19 22:03 Instructions: Acute Bronchitis, DI for Asthma -- Adult, DI for Acute Bronchitis, DI for Viral Upper Respiratory Infection -- Adult Activity Restrictions/Additional Instructions: Your chest x-ray is normal today. There were no problems on her lab work found to explain your symptoms. Your flu test was negative. Your symptoms are more typical of a sinusitis/bronchitis exacerbating her asthma. Most often this is viral. It is possible that you have danielle virus and we will add the test on, however it does not change our treatment plan. As we talked about, you should return right away if you have any acutely worsening symptoms. Otherwise, please rest at home and follow the instructions below in case this danielle virus. Use your albuterol inhaler (the red one) with your spacer as often as needed to help with tight chest and cough. I have sent a prescription to refill your Tessalon Perles at the [facility] pharmacy. I would suggest trying long-acting guaifenesin (Mucinex) rather than your Robitussin, to help with your chest congestion. In addition, I have given you some prednisone tablets. Please take 2 tablets tonight, and 2 tablets daily for the next 3 days following (8 tablets total) to help with your asthma. This is a very short course and not a problem if you need to stop the prednisone. You should continue using your Flovent as you usually do. * per recommendations from the CDC and the [facility] Department of Health * stay home except to get medical care. Restrict activities outside your home, except for getting medical care. Do not go to work, school, or public areas. Avoid using public transportation, ride sharing, or taxis. * separate yourself from other people in your home. * call ahead before visiting your doctor * Wear a face mask * Cover your coughs and sneezes * Clean your hands often * Avoid sharing household items * Clean all high-touch services every day * Monitor your symptoms and seek prompt medical attention if your illness is worsening, particularly with difficulty in breathing. Discussed continuing home isolation * for individuals with symptoms who are confirmed or suspected cases of COVID-19 and are directed to care for themselves at home, discontinue home isolation under the following conditions: 1. At least 72 hours have passed since recovery, defined as resolution of fever without the use of fever reducing medications, and improvement in respiratory symptoms (cough, shortness of breath) AND, 2. At least 7 days have passed since symptoms 1st appeared Individuals with laboratory confirmed COVID-19 who have not had any symptoms may discontinue home isolation when at least 7 days have passed since the date of their 1st COVID-19 diagnostic test and have had no subsequent illness Prescriptions: New benzonatate [Tessalon Perles] 100 mg capsule 200 mg PO Q8HR PRN (Reason: cough) Qty: 40 RF: 0 No Action vitamin B complex [B Complex-Vitamin B12] tablet 1 tab PO DAILY RF: 0 Flovent HFA 110 mcg/actuation HFA aerosol inhaler INHALATION RF: 0 gabapentin 300 mg capsule 300 mg PO TID Qty: 270 RF: 3 quetiapine 25 mg tablet See Rx Instructions PO BID Qty: 90 RF: 0 albuterol sulfate 90 mcg/actuation HFA aerosol inhaler INHALATION PRNRF: 0 omeprazole 20 mg capsule,delayed release(DR/EC) 20 mg PO BID RF: 0 quetiapine 50 mg tablet 100 mg PO HS Qty: 180 RF: 3 lithium carbonate 300 mg capsule 300 mg PO BEDTIME Qty: 90 RF: 3 lamotrigine 100 mg tablet 300 mg PO DAILY Qty: 270 RF: 3 atorvastatin [Lipitor] 40 MG tablet 40 mg PO HS Qty: 0 RF: 0 metformin 500 mg tablet 500 mg PO QDAY RF: 0 fexofenadine 180 mg tablet 180 mg PO QDAY RF: 0 aspirin 81 mg tablet,delayed release (DR/EC) 81 mg PO QHS RF: 0 levothyroxine 50 mcg tablet 50 mcg PO QDAY RF: 0 ferrous sulfate 325 mg (65 mg iron) Tablet 325 mg PO QDAY RF: 0 ranitidine HCl 150 mg tablet 150 mg PO BID RF: 0 multivitamin Tablet 1 tab PO DAILY RF: 0 polyethylene glycol 3350 [Miralax] 17 gram Powder In Packet 17 g PO DAILY PRN (Reason: Laxative Effect) RF: 0 cholecalciferol (vitamin D3) [Vitamin D3] 1,000 unit capsule 2,000 unit PO DAILY RF: 0 lisinopril 5 mg Tablet 5 mg PO DAILY RF: 0 benzonatate 200 mg capsule 200 mg PO TID PRN (Reason: cough) Qty: 20 RF: 0 Referrals: James Brandon MD [Primary Care Provider] -
[2019-08-19 20:34] LABS: Alanine Aminotransferase 29 IU/L (<35); Albumin 4.1 g/dL (3.5-5.0); Albumin Globulin Ratio 1.5 (1.0-2.8); Alkaline Phosphatase 78 U/L (38-126); Aspartate Aminotransferase 39 IU/L (14-36); BUN Creatinine Ratio 18.5 (6-22); Bilirubin Total 0.3 mg/dL (0.2-1.3); Blood Urea Nitrogen 10 mg/dL (7-17); Calcium 9.5 mg/dL (8.4-10.2); Carbon Dioxide 24 mmol/L (22-32); Chloride 104 mmol/L (98-107); Estimated Glomerular Filt Rate > 60.0 mL/min (>60); Globulin 2.8 g/dL (1.7-4.1); Glucose 115 mg/dL (80-110); HEMOLYSIS < 15 (0-50); Potassium 4.3 mmol/L (3.4-5.1); Sodium 135 mmol/L (137-145); Total Protein 6.9 g/dL (6.3-8.2)
[2019-08-19 20:53] LABS: Influenza A - CEPHEID Flu A NEGATIVE (NEGATIVE); Influenza B - CEPHEID Flu B NEGATIVE (NEGATIVE)
[2019-08-19 20:55] LABS: Procalcitonin < 0.05 ng/mL (<0.5)
[2019-08-19 21:10] VITALS: BP 123/63; PULSE 80; RESP 25; O2SAT 97
[2019-08-19] MEDS: predniSONE 20 MG PREPACK 1 BOTTLE MISC (21:34)
[2019-08-19 21:39] VITALS: BP 123/63; PULSE 82; RESP 16; O2SAT 97
[2019-08-22 05:35] LABS: COVID19 Sendout Not Detected (Not Detected)
== END 2019-08-19 22:03 | disposition home or self-care (01) ==
PROVIDERS: Emergency Provider Internal Medicine; PCP Internal Medicine
DX: J40 Bronchitis, not specified as acute or chronic (principal); J45.41 Moderate persistent asthma with (acute) exacerbation; R50.9 Fever, unspecified; I10 Essential (primary) hypertension; E78.5 Hyperlipidemia, unspecified; E11.9 Type 2 diabetes mellitus without complications
CPT/HCPCS: 36415; 71045; 80053; 81003; 84145; 85025; 87502; 87635; 94640; 99284

== ENCOUNTER 2019-08-27 05:51 | Emergency (ER) | payer MEDICARE, OTHER, SELFPAY ==
--- NOTE | 2019-08-27 05:52 | ED_ITS ---
HPI - Fever General Chief Complaint: Fever Stated Complaint: fever Time Seen by Provider: 08/27/19 05:52 Source: patient and family Mode of arrival: Ambulatory Limitations: no limitations History of Present Illness HPI Narrative: 68-year-old female nonsmoker with history of asthma, bipolar and bronchitis presents with her in the chief complaint of low grade fever that started last night. She also has some nasal congestion and some dry cough. She's had no headache or sore throat. She denies SOB. She's had no GI complaints such as N/V/D. She denies dysuria, urgency, or hematuria. She denies recent travel, exposure to ill persons, or any interaction with those considered to be of suspicion for COVID-19. Related Data Home Medications Medication Instructions Recorded Confirmed atorvastatin [Lipitor] 40 mg PO HS #0 08/03/17 07/02/19 aspirin 81 mg PO QHS 09/29/17 07/02/19 ferrous sulfate 325 mg PO QDAY 09/29/17 07/02/19 fexofenadine 180 mg PO QDAY 09/29/17 07/02/19 levothyroxine 50 mcg PO QDAY 09/29/17 07/02/19 metformin 500 mg PO QDAY 09/29/17 07/02/19 multivitamin 1 tab PO DAILY 09/29/17 07/02/19 polyethylene glycol 3350 [Miralax] 17 g PO DAILY PRN 09/29/17 07/02/19 ranitidine HCl 150 mg PO BID 09/29/17 07/02/19 lisinopril 5 mg PO DAILY 10/18/17 07/02/19 vitamin B complex 1 tab PO DAILY 04/24/18 07/02/19 cholecalciferol (vitamin D3) 25 2,000 unit PO DAILY cap 01/29/19 07/02/19 mcg (1,000 unit) capsule fluticasone propionate 110 INHALATION 01/29/19 07/02/19 mcg/actuation HFA aerosol inhaler omeprazole 20 mg capsule,delayed 20 mg PO BID 02/25/19 07/02/19 release albuterol sulfate 90 mcg/actuation INHALATION PRN 06/04/19 07/02/19 aerosol inhaler Previous Rx's Medication Instructions Recorded gabapentin 300 mg capsule 300 mg PO TID #270 cap 01/29/19 quetiapine 25 mg tablet See Rx Instructions PO BID #90 tab 01/29/19 benzonatate 200 mg PO TID PRN #20 cap 04/24/19 lamotrigine 100 mg tablet 300 mg PO DAILY #270 tab 04/29/19 lithium carbonate 300 mg capsule 300 mg PO BEDTIME #90 cap 04/29/19 quetiapine 50 mg tablet 100 mg PO HS #180 tab 04/29/19 benzonatate [Tessalon Perles] 200 mg PO Q8HR PRN #40 cap 08/19/19 Allergies Allergy/AdvReac Type Severity Reaction Status Date / Time nitrofurantoin Allergy Severe SEVERE Verified 08/01/19 12:53 [From MACROBID] HEADACHES adhesive tape Allergy Intermediate Blister Verified 08/01/19 12:53 hydrocodone [From VICODIN] Allergy Unknown trouble Verified 08/01/19 12:53 breathing zolpidem [ZOLPIDEM] Allergy Unknown sleep Verified 08/01/19 12:53 walking/cooking indomethacin Allergy Dizziness Verified 08/01/19 12:53 oxycodone Allergy Rash Verified 08/01/19 12:53 codeine [CODEINE] AdvReac Unknown itching Verified 08/01/19 12:53 amoxicillin AdvReac Verified 08/01/19 12:53 tramadol AdvReac vertigo Verified 08/01/19 12:53 Review of Systems Constitutional Constitutional: Denies chills, Denies fatigue, Reports fever(s), Denies frequent falls, Denies lethargy and Denies weakness Eyes Eyes: Denies change in vision, Denies eye discharge, Denies irritation and Denies loss of vision ENT Ears, Nose, Mouth, and Throat: Denies change in voice, Denies dizziness, Reports nasal congestion, Denies neck pain, Denies sore throat and Denies throat swelling Cardiovascular Cardiovascular: Denies chest pain, Denies irregular heart rhythm, Denies lightheadedness, Denies palpitations, Denies dyspnea, Denies dyspnea on exertion and Denies orthopnea Respiratory Respiratory: Reports cough, Denies dyspnea, Denies dyspnea on exertion and Denies wheezing Gastrointestinal Gastrointestinal: Denies abdominal pain, Denies change in bowel habits, Denies diarrhea, Denies nausea and Denies vomiting Genitourinary Genitourinary: Denies hematuria, Denies flank pain, Denies urinary incontinence and Denies urinary urgency Musculoskeletal Musculoskeletal: Denies back pain, Denies muscle weakness, Denies neck pain, Denies numbness and Denies tingling Integumentary/Breasts Skin/Breast: Denies pruritus, Denies erythema, Denies rash and Denies wounds Neurologic Neurologic: Denies behavioral changes, Denies confusion, Denies dizziness, Denies frequent falls, Denies loss of vision, Denies numbness, Denies tingling and Denies weakness Psychiatric Psychiatric: Denies anxiety, Denies behavioral changes, Denies confusion, Denies depression, Denies homicidal ideation and Denies suicidal ideation Endocrine Endocrine: Denies fatigue, Denies flushing and Denies palpitations Hematologic/Lymphatic Hematologic/Lymphatic: Denies easy bruising Allergic/Immunologic Allergic/Immunologic: Denies urticaria, Denies throat swelling and Denies wheezing Patient History Medical History Asthma (Chronic) HTN (hypertension) (Chronic) Hyperlipidemia (Chronic) Hypothyroidism (Chronic) Non-insulin dependent diabetes mellitus (Chronic) Surgical History Status post surgery (Resolved) Social History household members: spouse Smoking Status: Former smoker Smoking Status: Former smoker alcohol intake frequency: 0-2 drinks per day Substance Use Type: does not use Exam Narrative Exam Narrative: GENERAL: [68] year old patient appears stated age. Well- nourished, well-developed patient, in mild distress. HEAD: Atraumatic. Normocephalic. EYES: Pupils equal round and reactive. Extraocular motions intact. No scleral icterus. No injection or drainage. ENT: Nose without bleeding, purulent drainage. Throat without erythema, tonsillar hypertrophy or exudate. Airway patent. NECK: Trachea midline. Non tender CARDIOVASCULAR: Regular rate and rhythm without murmurs, gallops, or rubs. RESPIRATORY: Clear to auscultation. Breath sounds equal bilaterally. No wheezes, rales, or rhonchi. GASTROINTESTINAL: Abdomen soft, non-tender, nondistended. EXTREMITIES: No edema or joint tenderness. BACK: Nontender without deformity or crepitance. No flank tenderness. NEURO: AOx3. SKIN: No rash or erythema of visible areas Initial Vital Signs Initial Vital Signs: Vital Signs Temperature 101.4 F H 08/27/19 05:57 Pulse Rate 102 H 08/27/19 05:57 Respiratory Rate 20 08/27/19 05:57 Blood Pressure 133/69 08/27/19 05:57 Pulse Oximetry 96 08/27/19 05:57 Course Orders Ordered: ED Orders 08/27/19 05:58 XR chest 1V Stat 08/27/19 06:05 Influenza A & B (PCR) Stat Discontinued Medications Acetaminophen (Tylenol) 975 mg PO NOW ONE Stop: 08/27/19 06:18 Last Admin: 08/27/19 06:22 Dose: 975 mg Documented by: DELANO Vital Signs Vital signs: Vital Signs - 8 hr 08/27/19 05:57 Temperature 101.4 F H Pulse Rate 102 H Respiratory Rate 20 Blood Pressure 133/69 Pulse Oximetry 96 MDM - Fever Lab Data Labs: Urine Dip Bedside Urine Glucose Negative Bedside Urine Bilirubin - Negative Bedside Urine Ketone - Negative Urine Specific [place] 1.015 Bedside Urine Occult Blood - Negative Bedside Urine pH 6.5 Bedside Urine Protein - Negative Bedside Urine Urobilinogen +/- 1mg Bedside Urine Nitrite - Negative Bedside Urine Leukocytes - Negative Esterase Discharge Plan Departure Prescriptions: No Action vitamin B complex [B Complex-Vitamin B12] tablet 1 tab PO DAILY RF: 0 Flovent HFA 110 mcg/actuation HFA aerosol inhaler INHALATION RF: 0 gabapentin 300 mg capsule 300 mg PO TID Qty: 270 RF: 3 quetiapine 25 mg tablet See Rx Instructions PO BID Qty: 90 RF: 0 albuterol sulfate 90 mcg/actuation HFA aerosol inhaler INHALATION PRNRF: 0 omeprazole 20 mg capsule,delayed release(DR/EC) 20 mg PO BID RF: 0 quetiapine 50 mg tablet 100 mg PO HS Qty: 180 RF: 3 lithium carbonate 300 mg capsule 300 mg PO BEDTIME Qty: 90 RF: 3 lamotrigine 100 mg tablet 300 mg PO DAILY Qty: 270 RF: 3 atorvastatin [Lipitor] 40 MG tablet 40 mg PO HS Qty: 0 RF: 0 metformin 500 mg tablet 500 mg PO QDAY RF: 0 fexofenadine 180 mg tablet 180 mg PO QDAY RF: 0 aspirin 81 mg tablet,delayed release (DR/EC) 81 mg PO QHS RF: 0 levothyroxine 50 mcg tablet 50 mcg PO QDAY RF: 0 ferrous sulfate 325 mg (65 mg iron) Tablet 325 mg PO QDAY RF: 0 ranitidine HCl 150 mg tablet 150 mg PO BID RF: 0 multivitamin Tablet 1 tab PO DAILY RF: 0 polyethylene glycol 3350 [Miralax] 17 gram Powder In Packet 17 g PO DAILY PRN (Reason: Laxative Effect) RF: 0 cholecalciferol (vitamin D3) [Vitamin D3] 1,000 unit capsule 2,000 unit PO DAILY RF: 0 benzonatate [Tessalon Perles] 100 mg capsule 200 mg PO Q8HR PRN (Reason: cough) Qty: 40 RF: 0 lisinopril 5 mg Tablet 5 mg PO DAILY RF: 0 benzonatate 200 mg capsule 200 mg PO TID PRN (Reason: cough) Qty: 20 RF: 0
[2019-08-27 05:57] VITALS: BP 133/69; PULSE 102; RESP 20; TEMP 38.6; O2SAT 96; BMI 35.4
--- NOTE | 2019-08-27 05:58 | DI.RAD.S_ITS ---
PROCEDURE: XR CHEST 1V INDICATIONS: fever body aches cough, asthma TECHNIQUE: One view of the chest was acquired. COMPARISON: [facility], CR, XR CHEST 1V, 08/19/2019, 20:11. FINDINGS: Surgical changes and devices: None. Lungs and pleura: Lungs are clear. No pleural effusions or pneumothorax. Mediastinum: Mediastinal contours appear normal. Heart size is normal. Bones and chest wall: No suspicious bony lesions. Overlying soft tissues appear unremarkable. IMPRESSION: No acute cardiopulmonary disease process. Dictated by: Cassy Huizar MD, PhD on 08/27/2019 at 8:16 Approved by: Cassy Huizar MD, PhD on 08/27/2019 at 8:16
[2019-08-27] MEDS: ACETAMINOPHEN 325 MG TABLET 975 MG PO (06:22)
[2019-08-27 06:46] LABS: Influenza A - CEPHEID Flu A NEGATIVE (NEGATIVE); Influenza B - CEPHEID Flu B NEGATIVE (NEGATIVE)
[2019-08-27 07:08] VITALS: BP 133/69; PULSE 94; RESP 20; TEMP 38.3; O2SAT 94
[2019-08-29 01:33] LABS: COVID19 Sendout Not Detected (Not Detected)
== END 2019-08-27 07:11 | disposition home or self-care (01) ==
PROVIDERS: Emergency Provider Emergency Medicine; PCP Internal Medicine
DX: J06.9 Acute upper respiratory infection, unspecified (principal); R50.9 Fever, unspecified; R05 Cough
CPT/HCPCS: 71045; 81003; 87502; 87635; 99283; 99284

== ENCOUNTER → 2019-11-12 10:32 | Outpatient (CLI) | payer MEDICARE, OTHER, SELFPAY ==
--- NOTE | 2019-11-12 | DI.RAD.S_ITS ---
PROCEDURE: XR FOOT LT MIN 3V INDICATIONS: LEFT FOOT PAIN TECHNIQUE: 3 views of the foot were acquired. COMPARISON: None. FINDINGS: Bones: No fractures or dislocations. No suspicious bony lesions. Hindfoot and midfoot degenerative spurring. Large plantar calcaneal spur. Mild first MTP degeneration Soft tissues: No tibiotalar joint effusion. Achilles tendon appears normal. IMPRESSION: Diffuse hindfoot and midfoot degenerative changes. Large plantar calcaneal spur If the patient's pain or other symptoms persist, consider further evaluation with MRI Dictated by: Dank Knapp M.D. on 11/12/2019 at 14:47 Approved by: Dank Knapp M.D. on 11/12/2019 at 15:13
== END ==
PROVIDERS: PCP Internal Medicine; Referring Provider Internal Medicine; Visit Provider Internal Medicine
DX: S99.922A Unspecified injury of left foot, initial encounter (principal); M79.672 Pain in left foot; M77.32 Calcaneal spur, left foot; M19.072 Primary osteoarthritis, left ankle and foot; X58.XXXA Exposure to other specified factors, initial encounter
CPT/HCPCS: 73630

== ENCOUNTER → 2020-02-12 09:49 | Outpatient (CLI) | payer MEDICARE, OTHER, SELFPAY ==
[2020-02-12 10:17] LABS: Add Manual Diff / Slide Review NO; Basophils Absolute Auto 0 /uL (0-100); Basophils Percent Auto 0.4 % (0-2); Eosinophils Absolute Auto 200 /uL (0-450); Eosinophils Percent Auto 3.8 % (2-4); Hematocrit 36.3 % (36-46); Hemoglobin 12.2 g/dL (12.0-16.0); Lymphocytes Absolute Auto 900 /uL (1100-4500); Mean Corpuscular HGB Conc 33.5 % (30-36); Mean Corpuscular Hemoglobin 32.2 PG (26-34); Monocytes Absolute Auto 400 /uL (0-900); Monocytes Percent Auto 7.7 % (3-14); Neutrophils Absolute Auto 4100 /uL (1500-7000); Neutrophils Percent Auto 72.1 % (50-75); Platelet Count 232 X10^3/uL (150-400); Red Blood Cell Count 3.78 X10^6/uL (4.0-5.2); Red Cell Distribution Width 13.6 % (11.6-14.8); White Blood Cell Count 5.7 X10^3/uL (4.5-11.0)
[2020-02-12 10:25] LABS: Hemoglobin A1C% w Est Avg Glu 6.5 % (4.0-6.0)
[2020-02-12 10:57] LABS: Alanine Aminotransferase 18 IU/L (<35); Albumin 3.9 g/dL (3.5-5.0); Albumin Globulin Ratio 1.5 (1.0-2.8); Alkaline Phosphatase 67 U/L (38-126); Aspartate Aminotransferase 25 IU/L (14-36); BUN Creatinine Ratio 15.5 (6-22); Bilirubin Total 0.5 mg/dL (0.2-1.3); Blood Urea Nitrogen 9 mg/dL (7-17); Calcium 9.1 mg/dL (8.4-10.2); Carbon Dioxide 27 mmol/L (22-32); Chloride 103 mmol/L (98-107); Cholesterol 164 mg/dL (140-199); Estimated Glomerular Filt Rate > 60.0 mL/min (>60); Globulin 2.6 g/dL (1.7-4.1); Glucose 125 mg/dL (80-110); HDL Cholesterol 53 mg/dL (40-60); HEMOLYSIS < 15 (0-50); LDL Cholesterol Calculated 66 mg/dL (<100); Potassium 4.3 mmol/L (3.4-5.1); Sodium 137 mmol/L (137-145); Total Protein 6.5 g/dL (6.3-8.2); Triglycerides 227 mg/dL (35-150)
[2020-02-13 16:42] LABS: Hep C Virus Ab w/Reflex Quant NEGATIVE s/c (NEGATIVE)
== END ==
PROVIDERS: PCP Internal Medicine; Referring Provider Internal Medicine; Visit Provider Internal Medicine
DX: Z00.00 Encounter for general adult medical examination without abnormal findings (principal); E11.9 Type 2 diabetes mellitus without complications; E03.9 Hypothyroidism, unspecified; E78.2 Mixed hyperlipidemia
CPT/HCPCS: 36415; 80053; 80061; 83036; 84443; 85025; 86803

== ENCOUNTER 2020-04-23 10:57 | Emergency (ER) | payer MEDICARE, OTHER, SELFPAY ==
[2020-04-23 11:23] VITALS: BP 141/72; PULSE 79; RESP 16; TEMP 37.1; O2SAT 96; BMI 38.0
[2020-04-23 11:24] LABS: Bilirubin Urine UA 2+ (NEGATIVE); Glucose Urine UA NEGATIVE (Negative); Ketones Urine UA TRACE (NEGATIVE); Leukocyte Esterase Urine UA 2+ (NEGATIVE); Nitrite Urine UA POSITIVE (Negative); Occult Blood Urine UA 3+ (Negative); Protein Urine UA 3+ (Negative)
[2020-04-23 11:38] LABS: Appearance Urine UA CLOUDY; Color Urine UA RED; pH Urine UA 6.5 (4.5-8.0)
[2020-04-23 11:40] LABS: Bacteria Urine Few (2-10); Mucus Urine 1+ (Negative); RBC Urine >100/HPF (0-5/HPF); Squamous Epithelial Cell Urine 0-1 /HPF (0-5/HPF); WBC Urine 10-30/HPF (0-5/HPF)
[2020-04-23 11:41] LABS: Culture Indicated Urine Specimen Cultured; Ictotest Urine Negative (Negative)
--- NOTE | 2020-04-23 11:52 | ED_ITS ---
HPI - General Adult General Chief complaint: Urogenital-Female Stated complaint: thinks she has a bladder infection Time Seen by Provider: 04/23/20 11:17 Source: patient Mode of arrival: Ambulatory Limitations: no limitations History of Present Illness HPI narrative: 69-year-old female who stated that this morning she woke up with dysuria and frequency and burning. She states that many years ago she had frequent urinary tract infections but has not had 1 in a long time. She denies any back pain. No nausea vomiting. No fevers. Has not tried anything for symptoms prior to arrival. Related Data Home Medications Medication Instructions Recorded Confirmed atorvastatin [Lipitor] 40 mg PO HS #0 08/03/17 04/21/20 aspirin 81 mg PO QHS 09/29/17 04/21/20 ferrous sulfate 325 mg PO QDAY 09/29/17 04/21/20 fexofenadine 180 mg PO QDAY 09/29/17 04/21/20 levothyroxine 50 mcg PO QDAY 09/29/17 04/21/20 metformin 500 mg PO QDAY 09/29/17 04/21/20 multivitamin 1 tab PO DAILY 09/29/17 04/21/20 polyethylene glycol 3350 [Miralax] 17 g PO DAILY PRN 09/29/17 04/21/20 lisinopril 5 mg PO DAILY 10/18/17 04/21/20 vitamin B complex 1 tab PO DAILY 04/24/18 04/21/20 cholecalciferol (vitamin D3) 25 2,000 unit PO DAILY cap 01/29/19 04/21/20 mcg (1,000 unit) capsule fluticasone propionate 110 INHALATION 01/29/19 04/21/20 mcg/actuation HFA aerosol inhaler omeprazole 20 mg capsule,delayed 20 mg PO BID 02/25/19 04/21/20 release albuterol sulfate 90 mcg/actuation INHALATION PRN 06/04/19 04/21/20 aerosol inhaler Previous Rx's Medication Instructions Recorded lamotrigine 100 mg tablet 300 mg PO DAILY #270 tab 12/11/19 lithium carbonate 300 mg capsule 300 mg PO BEDTIME #90 cap 12/11/19 quetiapine 25 mg tablet See Rx Instructions PO .COMPLEX 12/11/19 #90 tab gabapentin 300 mg capsule See Rx Instructions PO .COMPLEX 03/25/20 #520 cap quetiapine 50 mg tablet See Rx Instructions PO BEDTIME PRN 03/25/20 #180 tab phenazopyridine [Pyridium] 100 mg PO TID PRN #6 tab 04/23/20 sulfamethoxazole-trimethoprim 1 tab PO BID 5 Days #10 tab 04/23/20 [Bactrim DS] Allergies Allergy/AdvReac Type Severity Reaction Status Date / Time nitrofurantoin Allergy Severe SEVERE Verified 04/21/20 15:01 [From MACROBID] HEADACHES adhesive tape Allergy Intermediate Blister Verified 04/21/20 15:01 iodine Allergy Intermediate hand Verified 04/21/20 15:01 swelling hydrocodone [From VICODIN] Allergy Unknown trouble Verified 04/21/20 15:01 breathing zolpidem [ZOLPIDEM] Allergy Unknown sleep Verified 04/21/20 15:01 walking/cooking indomethacin Allergy Dizziness Verified 04/21/20 15:01 oxycodone Allergy Rash Verified 04/21/20 15:01 codeine [CODEINE] AdvReac Unknown itching Verified 04/21/20 15:01 amoxicillin AdvReac Verified 04/21/20 15:01 tramadol AdvReac vertigo Verified 04/21/20 15:01 vaginal creams AdvReac Uncoded 04/23/20 11:29 Review of Systems Constitutional Constitutional: Denies fatigue and Denies fever(s) Cardiovascular Cardiovascular: Denies chest pain and Denies dyspnea Respiratory Respiratory: Denies dyspnea Gastrointestinal Gastrointestinal: Reports abdominal pain (Lower abdomen/suprapubic), Denies nausea and Denies vomiting Genitourinary Genitourinary: Reports dysuria, Reports dysuria and Reports urinary urgency Genitourinary: Reports dysuria, Reports dysuria, Reports urinary urgency and Denies vaginal discharge Musculoskeletal Musculoskeletal: Denies arthralgias and Denies myalgias Integumentary/Breasts Skin/Breast: Denies lesions and Denies rash Neurologic Neurologic: Denies behavioral changes Psychiatric Psychiatric: Denies behavioral changes Endocrine Endocrine: Denies fatigue Hematologic/Lymphatic Hematologic/Lymphatic: Denies easy bleeding and Denies easy bruising Allergic/Immunologic Allergic/Immunologic: Denies urticaria Patient History Medical History Asthma HTN (hypertension) Hyperlipidemia Hypothyroidism Non-insulin dependent diabetes mellitus Surgical History Status post surgery Social History household members: spouse Smoking Status: Former smoker Smoking Status: Former smoker alcohol intake frequency: 0-2 drinks per day Substance Use Type: does not use Exam Initial Vital Signs Initial Vital Signs: Vital Signs Temperature 98.8 F 04/23/20 11:23 Pulse Rate 79 04/23/20 11:23 Respiratory Rate 16 04/23/20 11:23 Blood Pressure 141/72 H 04/23/20 11:23 Pulse Oximetry 96 04/23/20 11:23 Const General: cooperative, healthy appearing and comfortable Limitations: mental status not altered HENMT Head: normal to inspection and normocephalic Resp Effort & Inspection: normal respiratory effort Cardio Rate: regular rate GI Inspection: non-distended Skin Lesions: no lesions Rashes: no rashes Neuro General: patient alert and patient awake Cognition: normal cognition Speech: speech normal Extrem General: normal to inspection and capillary refill normal Psych Appearance: grossly normal and well kempt Course Orders Ordered: ED Orders 04/23/20 11:16 Ictotest Urine Stat UA Complete [Urinalysis and Microscopic] Stat Urine Culture Stat Discontinued Medications Phenazopyridine HCl (Phenazopyridine 100 Mg Tablet) 100 mg PO NOW ONE Stop: 04/23/20 11:53 Last Admin: 04/23/20 12:01 Dose: 100 mg Documented by: DELANO Trimethoprim/Sulfamethoxazole (Trimeth/Sulfa 160/800 (Ds) Tablet) 1 tab PO NOW ONE Stop: 04/23/20 11:53 Last Admin: 04/23/20 12:01 Dose: 1 tab Documented by: DELANO Vital Signs Vital signs: Vital Signs - 8 hr 04/23/20 11:23 Temperature 98.8 F Pulse Rate 79 Respiratory Rate 16 Blood Pressure 141/72 H Pulse Oximetry 96 Medical Decision Making Lab Data Lab results reviewed: Yes I reviewed the patient's lab results. Labs: Lab Results 04/23/20 Range/Units 11:16 Urine Color Red Urine Appearance Cloudy Urine pH 6.5 (4.5-8.0) Ur Specific [place] 1.020 (1.000-1.035) Urine Protein 3+ H (Negative) Urine Glucose (UA) Negative (Negative) g/dL Urine Ketones Trace H (NEGATIVE) Urine Occult Blood 3+ H (Negative) Urine Nitrate Positive H (Negative) Urine Bilirubin 2+ H (NEGATIVE) Ur Bilirubin Confirm Negative (Negative) Urine Urobilinogen 2.0 H (0.2) E.U./dL Ur Leukocyte Esterase 2+ H (NEGATIVE) Urine RBC >100/hpf H (0-5/HPF) Urine WBC 10-30/hpf H (0-5/HPF) Ur Squamous Epith Cells 0-1 /hpf (0-5/HPF) Urine Bacteria Few (2-10) H (None) Urine Mucus 1+ H (Negative) Ur Culture Indicated? Specimen cultured MDM Narrative Medical decision making narrative: Patient is nontoxic appearing face she does have a nitrite positive urine and given her symptoms today will treat her has a urinary tract infection. She was given a dose of antibiotics here in the ER and a prescription for the remainder. Low suspicion for pyelonephritis. She was given return precautions and follow-up instructions. She expressed understanding and agreement. Discharge Plan Departure Patient Disposition: Home Clinical Impression: Urinary tract infection Instructions: DI for Urinary Tract Infection (UTI) Activity Restrictions/Additional Instructions: You were given your 1st dose of antibiotics here in the emergency department. Your 2nd dose of antibiotics will be later today. A urine culture was pending at the time of discharge and we will contact you if we do need to change any antibiotics. Contact your primary provider for follow-up. Return to the emergency department for any new or worsening symptoms Prescriptions: New sulfamethoxazole-trimethoprim [Bactrim DS] 800-160 mg tablet 1 tab PO BID 5 Days Qty: 10 RF: 0 phenazopyridine [Pyridium] 100 mg tablet 100 mg PO TID PRN (Reason: pain) Qty: 6 RF: 0 No Action vitamin B complex [B Complex-Vitamin B12] tablet 1 tab PO DAILY RF: 0 Flovent HFA 110 mcg/actuation HFA aerosol inhaler INHALATION RF: 0 albuterol sulfate 90 mcg/actuation HFA aerosol inhaler INHALATION PRNRF: 0 gabapentin 300 mg capsule See Rx Instructions PO .COMPLEX Qty: 520 RF: 1 quetiapine 50 mg tablet See Rx Instructions PO BEDTIME PRN (Reason: sleep) Qty: 180 RF: 1 omeprazole 20 mg capsule,delayed release(DR/EC) 20 mg PO BID RF: 0 quetiapine 25 mg tablet See Rx Instructions PO .COMPLEX Qty: 90 RF: 1 lamotrigine 100 mg tablet 300 mg PO DAILY Qty: 270 RF: 3 lithium carbonate 300 mg capsule 300 mg PO BEDTIME Qty: 90 RF: 3 atorvastatin [Lipitor] 40 MG tablet 40 mg PO HS Qty: 0 RF: 0 metformin 500 mg tablet 500 mg PO QDAY RF: 0 fexofenadine 180 mg tablet 180 mg PO QDAY RF: 0 aspirin 81 mg tablet,delayed release (DR/EC) 81 mg PO QHS RF: 0 levothyroxine 50 mcg tablet 50 mcg PO QDAY RF: 0 ferrous sulfate 325 mg (65 mg iron) Tablet 325 mg PO QDAY RF: 0 multivitamin Tablet 1 tab PO DAILY RF: 0 polyethylene glycol 3350 [Miralax] 17 gram Powder In Packet 17 g PO DAILY PRN (Reason: Laxative Effect) RF: 0 cholecalciferol (vitamin D3) [Vitamin D3] 1,000 unit capsule 2,000 unit PO DAILY RF: 0 lisinopril 5 mg Tablet 5 mg PO DAILY RF: 0 Referrals: James Brandon MD [Primary Care Provider] -
[2020-04-23] MEDS: PHENAZOPYRIDINE 100 MG TABLET PO (12:01)
[2020-04-23] MEDS: TRIMETH/SULFA 160/800 (DS) TABLET 1 TAB PO (12:01)
== END 2020-04-23 12:06 | disposition home or self-care (01) ==
PROVIDERS: Emergency Provider Emergency Medicine; PCP Internal Medicine
DX: N39.0 Urinary tract infection, site not specified (principal)
CPT/HCPCS: 81001; 87077; 87086; 87185; 87186; 99281; 99283

== ENCOUNTER 2020-06-16 22:16 | Emergency (ER) | payer MEDICARE, OTHER, SELFPAY ==
[2020-06-16 22:20] VITALS: BP 177/82; PULSE 73; RESP 24; TEMP 36.6; O2SAT 98
[2020-06-16 22:23] VITALS: PULSE 82; O2SAT 98
--- NOTE | 2020-06-16 22:28 | DI.CT.S_ITS ---
PROCEDURE: CT HEAD/BRAIN WO CON INDICATIONS: code stroke TECHNIQUE: Noncontrast 4.5 mm thick angled axial sections acquired from the foramen magnum to the vertex, with coronal and sagittal reformats. For radiation dose reduction, the following was used: automated exposure control, adjustment of mA and/or kV according to patient size. COMPARISON: None. FINDINGS: Image quality: Excellent. CSF spaces: Basal cisterns are patent. No extra-axial fluid collections. The ventricles are symmetric in size and shape. Brain: No intracranial bleeds or masses. There is mild cerebral volume loss for age, with resultant ventricular and sulcal prominence. There are minimal periventricular and deep white matter chronic small vessel ischemic changes. There is intracranial internal carotid artery atherosclerosis. Skull and face: Calvarium and visualized facial bones appear intact, without suspicious lesions. Sinuses: Visualized sinuses and mastoids are clear. IMPRESSION: 1. No acute intracranial abnormalities. No significant discrepancy with the ice cream dispenser radiology preliminary report. Dictated by: Ren Mahoney M.D. on 06/17/2020 at 7:07 Approved by: Ren Mahoney M.D. on 06/17/2020 at 7:07
[2020-06-16 22:30] VITALS: BP 143/65; PULSE 74; PULSE 75; RESP 20; RESP 23; O2SAT 96; O2SAT 98
[2020-06-16 22:31] VITALS: BP 177/82; PULSE 76; RESP 20; O2SAT 98
--- NOTE | 2020-06-16 22:40 | ED_ITS ---
HPI - Neuro Symptoms/Deficit General Chief Complaint: Neuro Symptoms/Deficit Stated Complaint: visual changes Time Seen by Provider: 06/16/20 22:27 Source: patient and family Mode of arrival: Ambulatory Limitations: no limitations History of Present Illness HPI Narrative: The patient developed visual changes about 8:30 p.m. tonight small sitting home. She describes vision been altered simultaneously in both eyes. There is no distinct visual field cut. She had no speech abnormality. Her said she may been confused, non now. It is unclear. She may have had right-sided weakness at that time, none now. She has a significant tremor upon arrival, this is chronic. She has no history of seizure. She denies recent illness. She has had no headache, no fever, no chest pain, no dyspnea. She is diabetic, she has not been monitoring her glucose level. She has been prone to hypoglycemia in the past. Her appetite has been normal. She has had no nausea vomiting. She has no complaints. She is compliant with medications, including lithium. Apparently her lithium level has been elevated in the past. Although very anxious, she is cooperative with the evaluation. On Anticoagulants: No Related Data Home Medications Medication Instructions Recorded Confirmed atorvastatin [Lipitor] 40 mg PO HS #0 08/03/17 05/19/20 aspirin 81 mg PO QHS 09/29/17 05/19/20 ferrous sulfate 325 mg PO QDAY 09/29/17 05/19/20 fexofenadine 180 mg PO QDAY 09/29/17 05/19/20 levothyroxine 50 mcg PO QDAY 09/29/17 05/19/20 metformin 500 mg PO QDAY 09/29/17 05/19/20 multivitamin 1 tab PO DAILY 09/29/17 05/19/20 polyethylene glycol 3350 [Miralax] 17 g PO DAILY PRN 09/29/17 05/19/20 lisinopril 5 mg PO DAILY 10/18/17 05/19/20 vitamin B complex 1 tab PO DAILY 04/24/18 05/19/20 cholecalciferol (vitamin D3) 25 2,000 unit PO DAILY cap 01/29/19 05/19/20 mcg (1,000 unit) capsule fluticasone propionate 110 INHALATION 01/29/19 05/19/20 mcg/actuation HFA aerosol inhaler omeprazole 20 mg capsule,delayed 20 mg PO BID 02/25/19 05/19/20 release albuterol sulfate 90 mcg/actuation INHALATION PRN 06/04/19 05/19/20 aerosol inhaler Previous Rx's Medication Instructions Recorded lamotrigine 100 mg tablet 300 mg PO DAILY #270 tab 12/11/19 lithium carbonate 300 mg capsule 300 mg PO BEDTIME #90 cap 12/11/19 quetiapine 25 mg tablet See Rx Instructions PO .COMPLEX 12/11/19 #90 tab gabapentin 300 mg capsule See Rx Instructions PO .COMPLEX 03/25/20 #520 cap quetiapine 50 mg tablet See Rx Instructions PO BEDTIME PRN 03/25/20 #180 tab phenazopyridine [Pyridium] 100 mg PO TID PRN #6 tab 04/23/20 pregabalin 100 mg capsule 100 mg PO TID #90 cap 05/19/20 Allergies Allergy/AdvReac Type Severity Reaction Status Date / Time nitrofurantoin Allergy Severe SEVERE Verified 05/19/20 13:00 [From MACROBID] HEADACHES adhesive tape Allergy Intermediate Blister Verified 05/19/20 13:00 iodine Allergy Intermediate hand Verified 05/19/20 13:00 swelling hydrocodone [From VICODIN] Allergy Unknown trouble Verified 05/19/20 13:00 breathing zolpidem [ZOLPIDEM] Allergy Unknown sleep Verified 05/19/20 13:00 walking/cooking indomethacin Allergy Dizziness Verified 05/19/20 13:00 oxycodone Allergy Rash Verified 05/19/20 13:00 codeine [CODEINE] AdvReac Unknown itching Verified 05/19/20 13:00 amoxicillin AdvReac Verified 05/19/20 13:00 Iodine and Iodide Containing AdvReac started Verified 05/19/20 13:01 Produc swelling, doctor said to enter as allergy tramadol AdvReac vertigo Verified 05/19/20 13:00 vaginal creams AdvReac Uncoded 04/23/20 11:29 Review of Systems Constitutional Constitutional: Denies chills, Denies fatigue, Denies fever(s), Denies headache( s) and Reports weakness (See HPI) Eyes Eyes: Reports as per HPI ENT Ears, Nose, Mouth, and Throat: Denies dizziness, Denies headache(s) and Denies neck pain Comments: No additional ENT complaints. Cardiovascular Cardiovascular: Denies chest pain, Denies irregular heart rhythm, Denies lightheadedness and Denies dyspnea Respiratory Respiratory: Denies cough, Denies dyspnea and Denies wheezing Gastrointestinal Gastrointestinal: Denies abdominal pain, Denies change in bowel habits, Denies diarrhea, Denies nausea and Denies vomiting Genitourinary Genitourinary: Denies dysuria Genitourinary: Denies dysuria Musculoskeletal Musculoskeletal: Denies back pain, Denies neck pain and Denies numbness Integumentary/Breasts Skin/Breast: Denies erythema and Denies rash Neurologic Neurologic: Denies confusion, Denies dizziness, Denies headache(s), Denies numbness and Reports weakness (See HPI) Psychiatric Psychiatric: Reports anxiety and Denies confusion Endocrine Endocrine: Denies fatigue Hematologic/Lymphatic On Anticoagulants: No Allergic/Immunologic Allergic/Immunologic: Denies wheezing Patient History Medical History (Updated 06/17/20 @ 02:03 by Maria Del Carmen Maya RN) Asthma Bipolar 1 disorder HTN (hypertension) Hyperlipidemia Hypothyroidism Non-insulin dependent diabetes mellitus PTSD (post-traumatic stress disorder) Surgical History Status post surgery Social History household members: spouse Smoking Status: Former smoker Smoking Status: Former smoker alcohol intake frequency: 0-2 drinks per day Substance Use Type: does not use Exam Initial Vital Signs Initial Vital Signs: Vital Signs Temperature 97.9 F 06/16/20 22:20 Pulse Rate 73 06/16/20 22:20 Respiratory Rate 24 06/16/20 22:20 Blood Pressure 177/82 H 06/16/20 22:20 Pulse Oximetry 98 06/16/20 22:20 Const General: cooperative, well developed and anxious Nutritional Appearance: well nourished Other: Frequent right upper extremity tremor. Occasional left upper extremity tremor. HENMT Head: normocephalic and atraumatic Mouth: oral mucosae normal and tongue normal Throat: posterior oropharynx normal Eyes General: appearance normal, both eyes and all related structures Eyelids: eyelids normal Conjunctivae: conjunctivae normal Sclera: sclerae normal Cornea: corneas normal Pupils: PERRL EOM: EOM intact bilaterally Other: No visual field cuts. Neck Neck: trachea midline, No lymphadenopathy and No JVD Chest Chest: normal inspection of the chest Resp Effort & Inspection: normal respiratory effort and able to speak in complete sentences Auscultation: clear to auscultation bilaterally, no rales, no rhonchi and no wheezes Cardio Rate: regular rate Rhythm: regular rhythm Heart Sounds: S1 normal, S2 normal, no click, no gallops, no murmurs and no rubs Pulses: normal peripheral pulses GI Inspection: obesity Palpation: soft and No tender Auscultation: normal bowel sounds Back/Spine/Pelvis Back: No CVA tenderness Skin General: no rashes or lesions noted, No jaundice and No petechiae Neuro General: patient alert, patient oriented x3, gait normal and no focal motor deficits Cranial Nerves: CN's II-XI intact bilaterally Speech: speech normal Sensory Exam: no sensory deficits noted Psych Mental Status: mental status grossly normal Scores NIH Stroke Scale Level of Conciousness: Alert, keenly responsive Ask month/age: Answers both questions correctly. Open/close eyes, close hand: Performs both tasks correctly Best gaze horizontal: Normal Visual baum: No visual loss Facial palsy: Normal symetrical movement Left arm drift: No drift for full 10 sec Right arm drift: No drift for full 10 sec Left leg drift: No drift for full 5 sec Right leg drift: No drift for full 5 sec Limb ataxia: Absent Sensory on face/arms/legs: Normal, no sensory loss Best language: No aphasia, normal Dysarthria: Normal Extinction or inattention: No abnormality Total NIH Stroke scale score: 0 Course Course Course Narrative: The patient was given Ativan, the repetitive tremor in her right arm was quickly relieved. Her anxiety resolved, she is now more alert, oriented, there is no neurologic deficits. Head CT shows no evidence of CVA. It is noted that she is on Lamictal for treatment of her anxiety. Watching her repetitive tremor, I have a concern she may be experiencing an atypical seizure. I gave her an additional 100 mg of Lamictal. With the medications given, she is alert, calm, there are no neurologic deficits. She is advised to follow-up with her doctor with concerns that she may be experiencing atypical seizures. I would recommend a neurology consult. Orders Ordered: ED Orders 06/16/20 22:28 CT head/brain wo con Stat 06/16/20 23:10 Basic Metabolic Panel Stat Complete Blood Count AUTO DIFF Stat [place] Stat Partial Thromboplastin Time Stat Prothrombin Time INR Stat Discontinued Medications Sodium Chloride (Normal Saline 0.9%) 1,000 mls @ 150 mls/hr IV CONT MALDONADO Last Admin: 06/16/20 23:17 Dose: 150 mls/hr Documented by: NIVIA Lamotrigine (Lamotrigine 100 Mg Tablet) 100 mg PO NOW ONE Stop: 06/16/20 23:54 Last Admin: 06/17/20 00:39 Dose: 100 mg Documented by: ALLEN Lorazepam (Lorazepam 2 Mg/Ml Inj) 1 mg IV NOW ONE Stop: 06/16/20 22:42 Last Admin: 06/16/20 22:46 Dose: 1 mg Documented by: NIVIA Vital Signs Vital signs: Vital Signs - 8 hr 06/16/20 22:20 06/16/20 22:23 06/16/20 22:30 Temperature 97.9 F Pulse Rate 73 82 74 Respiratory Rate 24 20 Blood Pressure 177/82 H 143/65 H Pulse Oximetry 98 98 96 06/16/20 22:31 06/16/20 23:30 06/16/20 23:33 Temperature Pulse Rate 76 77 76 Respiratory Rate 20 36 H 22 Blood Pressure 177/82 H 143/65 H Pulse Oximetry 98 96 99 06/17/20 00:00 06/17/20 00:30 06/17/20 01:00 Temperature Pulse Rate 75 77 77 Respiratory Rate 22 22 23 Blood Pressure Pulse Oximetry 97 97 97 06/17/20 01:30 06/17/20 01:31 Temperature Pulse Rate 71 73 Respiratory Rate 18 20 Blood Pressure 151/58 H Pulse Oximetry 98 98 MDM - Neuro Symptoms/Deficit Lab Data Result diagrams: 06/16/20 23:10 06/16/20 23:10 Labs: Lab Results 06/16/20 06/16/20 06/16/20 Range/Units 23:10 23:10 23:10 WBC 6.3 (4.5-11.0) X10^3/uL RBC 3.96 L (4.0-5.2) X10^6/uL Hgb 12.4 (12.0-16.0) g/dL Hct 37.5 (36-46) % MCV 94.8 (80-100) fL MCH 31.3 (26-34) PG MCHC 33.1 (30-36) % RDW 13.7 (11.6-14.8) % Plt Count 242 (150-400) X10^3/uL Neut % (Auto) 59.0 (50-75) % Lymph % (Auto) 28.0 (25-40) % [place] % (Auto) 8.1 (3-14) % Eos % (Auto) 4.4 H (2-4) % Baso % (Auto) 0.5 (0-2) % Neut # (Auto) 3700 (1673-0996) /uL Lymph # (Auto) 1800 (9503-2413) /uL [place] # (Auto) 500 (0-900) /uL Eos # (Auto) 300 (0-450) /uL Baso # (Auto) 0 (0-100) /uL PT 9.9 L (10.1-12.7) SECONDS INR 0.9 (0.9-1.3) APTT 38 H (26.4-36.2) SECONDS Sodium (137-145) mmol/L Potassium (3.4-5.1) mmol/L Chloride (98-107) mmol/L Carbon Dioxide (22-32) mmol/L BUN (7-17) mg/dL Creatinine (0.52-1.04) mg/dL Estimated GFR (>60) mL/min BUN/Creatinine Ratio (6-22) Glucose (80-110) mg/dL Calcium (8.4-10.2) mg/dL [place] 0.7 (0.6-1.2) mmol/L 06/16/20 Range/Units 23:10 WBC (4.5-11.0) X10^3/uL RBC (4.0-5.2) X10^6/uL Hgb (12.0-16.0) g/dL Hct (36-46) % MCV (80-100) fL MCH (26-34) PG MCHC (30-36) % RDW (11.6-14.8) % Plt Count (150-400) X10^3/uL Neut % (Auto) (50-75) % Lymph % (Auto) (25-40) % [place] % (Auto) (3-14) % Eos % (Auto) (2-4) % Baso % (Auto) (0-2) % Neut # (Auto) (9308-7588) /uL Lymph # (Auto) (2558-9199) /uL [place] # (Auto) (0-900) /uL Eos # (Auto) (0-450) /uL Baso # (Auto) (0-100) /uL PT (10.1-12.7) SECONDS INR (0.9-1.3) APTT (26.4-36.2) SECONDS Sodium 136 L (137-145) mmol/L Potassium 4.5 (3.4-5.1) mmol/L Chloride 105 (98-107) mmol/L Carbon Dioxide 27 (22-32) mmol/L BUN 9 (7-17) mg/dL Creatinine 0.51 L (0.52-1.04) mg/dL Estimated GFR > 60.0 (>60) mL/min BUN/Creatinine Ratio 17.6 (6-22) Glucose 112 H (80-110) mg/dL Calcium 9.3 (8.4-10.2) mg/dL [place] (0.6-1.2) mmol/L Point of Care Testing Glucose POC 116 Urine Dip Bedside Urine Glucose Negative Bedside Urine Bilirubin - Negative Bedside Urine Ketone - Negative Urine Specific [place] 1.010 Bedside Urine Occult Blood - Negative Bedside Urine pH 6.0 Bedside Urine Protein - Negative Bedside Urine Urobilinogen - Negative Bedside Urine Nitrite - Negative Bedside Urine Leukocytes - Negative Esterase Imaging Data CT scan - head: Radiologist's Impression: Atrophy noted. There is no evidence of acute CVA. ECG Data Attestation: I personally reviewed and interpreted this ECG as follows: (Normal sinus rhythm rate 76 beats per minute. Normal intervals. No ectopy. No acute ST-T wave changes.) Discharge Plan Departure Patient Disposition: Home Clinical Impression: Anxiety, Tremor, Bipolar disorder, current episode manic without psychotic fea tures, moderate Instructions: Anxiety Disorders, DI for Benign Essential Tremor Activity Restrictions/Additional Instructions: Continue your current medications at current doses. There was no evidence of stroke found on your evaluation. Your glucose level is acceptable. Your lithium level is normal. You were obviously anxious, the tremor you experienced may be part anxiety. Ho wever, the persistent tremor could also been an atypical seizure. It is good you improved so quickly with the medications given. Follow-up with your doctor to review medications, discuss potential further evaluation for the tremor. Return the ER as needed. Prescriptions: No Action vitamin B complex [B Complex-Vitamin B12] tablet 1 tab PO DAILY RF: 0 Flovent HFA 110 mcg/actuation HFA aerosol inhaler INHALATION RF: 0 albuterol sulfate 90 mcg/actuation HFA aerosol inhaler INHALATION PRNRF: 0 gabapentin 300 mg capsule See Rx Instructions PO .COMPLEX Qty: 520 RF: 1 Hold Instructions: Lyrica trial quetiapine 50 mg tablet See Rx Instructions PO BEDTIME PRN (Reason: sleep) Qty: 180 RF: 1 pregabalin [Lyrica] 100 mg capsule 100 mg PO TID Qty: 90 RF: 0 omeprazole 20 mg capsule,delayed release(DR/EC) 20 mg PO BID RF: 0 quetiapine 25 mg tablet See Rx Instructions PO .COMPLEX Qty: 90 RF: 1 lamotrigine 100 mg tablet 300 mg PO DAILY Qty: 270 RF: 3 lithium carbonate 300 mg capsule 300 mg PO BEDTIME Qty: 90 RF: 3 atorvastatin [Lipitor] 40 MG tablet 40 mg PO HS Qty: 0 RF: 0 metformin 500 mg tablet 500 mg PO QDAY RF: 0 fexofenadine 180 mg tablet 180 mg PO QDAY RF: 0 aspirin 81 mg tablet,delayed release (DR/EC) 81 mg PO QHS RF: 0 levothyroxine 50 mcg tablet 50 mcg PO QDAY RF: 0 ferrous sulfate 325 mg (65 mg iron) Tablet 325 mg PO QDAY RF: 0 multivitamin Tablet 1 tab PO DAILY RF: 0 polyethylene glycol 3350 [Miralax] 17 gram Powder In Packet 17 g PO DAILY PRN (Reason: Laxative Effect) RF: 0 cholecalciferol (vitamin D3) [Vitamin D3] 1,000 unit capsule 2,000 unit PO DAILY RF: 0 phenazopyridine [Pyridium] 100 mg tablet 100 mg PO TID PRN (Reason: pain) Qty: 6 RF: 0 lisinopril 5 mg Tablet 5 mg PO DAILY RF: 0 Referrals: James Brandon MD [Primary Care Provider] -
[2020-06-16] MEDS: LORazepam 2 MG/ML INJ 1 MG IV (22:46)
[2020-06-16] MEDS: SODIUM CHLORIDE 0.9% 1,000 ML 150 ML IV (23:17)
[2020-06-16 23:22] LABS: Add Manual Diff / Slide Review NO; Basophils Absolute Auto 0 /uL (0-100); Basophils Percent Auto 0.5 % (0-2); Eosinophils Absolute Auto 300 /uL (0-450); Eosinophils Percent Auto 4.4 % (2-4); Hematocrit 37.5 % (36-46); Hemoglobin 12.4 g/dL (12.0-16.0); Lymphocytes Absolute Auto 1800 /uL (1100-4500); Mean Corpuscular HGB Conc 33.1 % (30-36); Mean Corpuscular Hemoglobin 31.3 PG (26-34); Mean Corpuscular Volume 94.8 fL (80-100); Monocytes Absolute Auto 500 /uL (0-900); Monocytes Percent Auto 8.1 % (3-14); Neutrophils Absolute Auto 3700 /uL (1500-7000); Platelet Count 242 X10^3/uL (150-400); Red Blood Cell Count 3.96 X10^6/uL (4.0-5.2); Red Cell Distribution Width 13.7 % (11.6-14.8); White Blood Cell Count 6.3 X10^3/uL (4.5-11.0)
[2020-06-16 23:25] LABS: INR 0.9 (0.9-1.3); Prothrombin Time 9.9 SECONDS (10.1-12.7)
[2020-06-16 23:28] LABS: PTT Partial Thromboplastin Tim 38 SECONDS (26.4-36.2)
[2020-06-16 23:29] LABS: BUN Creatinine Ratio 17.6 (6-22); Blood Urea Nitrogen 9 mg/dL (7-17); Calcium 9.3 mg/dL (8.4-10.2); Carbon Dioxide 27 mmol/L (22-32); Chloride 105 mmol/L (98-107); Estimated Glomerular Filt Rate > 60.0 mL/min (>60); Glucose 112 mg/dL (80-110); HEMOLYSIS 33 (0-50); Potassium 4.5 mmol/L (3.4-5.1); Sodium 136 mmol/L (137-145)
[2020-06-16 23:30] VITALS: PULSE 77; RESP 36; O2SAT 96
[2020-06-16 23:33] VITALS: BP 143/65; PULSE 76; RESP 22; O2SAT 99
[2020-06-16 23:33] LABS: Lithium 0.7 mmol/L (0.6-1.2)
[2020-06-17] VITALS: PULSE 75; RESP 22; O2SAT 97
[2020-06-17 00:30] VITALS: PULSE 77; RESP 22; O2SAT 97
[2020-06-17] MEDS: lamoTRIgine 100 MG TABLET PO (00:39)
[2020-06-17 01:00] VITALS: PULSE 77; RESP 23; O2SAT 97
[2020-06-17 01:30] VITALS: PULSE 71; RESP 18; O2SAT 98
[2020-06-17 01:31] VITALS: BP 151/58; PULSE 73; RESP 20; O2SAT 98
== END 2020-06-17 02:02 | disposition home or self-care (01) ==
PROVIDERS: Emergency Provider Emergency Medicine; PCP Internal Medicine
DX: F41.9 Anxiety disorder, unspecified (principal); F31.9 Bipolar disorder, unspecified; R25.1 Tremor, unspecified; R53.1 Weakness; I10 Essential (primary) hypertension; E78.5 Hyperlipidemia, unspecified; E03.9 Hypothyroidism, unspecified; E11.9 Type 2 diabetes mellitus without complications
CPT/HCPCS: 70450; 80048; 80178; 81003; 82962; 85025; 85610; 85730; 93005; 93010; 96361; 96374; 99284; J2060

== ENCOUNTER → 2020-09-17 08:36 | Outpatient (CLI) | payer MEDICARE, OTHER, SELFPAY ==
[2020-09-17 09:14] LABS: Add Manual Diff / Slide Review NO; Basophils Absolute Auto 0 /uL (0-100); Basophils Percent Auto 0.5 % (0-2); Eosinophils Absolute Auto 300 /uL (0-450); Hemoglobin 12.5 g/dL (12.0-16.0); Lymphocytes Absolute Auto 1500 /uL (1100-4500); Lymphocytes Percent Auto 27.1 % (25-40); Mean Corpuscular HGB Conc 33.8 % (30-36); Mean Corpuscular Hemoglobin 31.5 PG (26-34); Mean Corpuscular Volume 93.2 fL (80-100); Monocytes Absolute Auto 400 /uL (0-900); Neutrophils Absolute Auto 3200 /uL (1500-7000); Neutrophils Percent Auto 59.4 % (50-75); Platelet Count 242 X10^3/uL (150-400); Red Blood Cell Count 3.97 X10^6/uL (4.0-5.2); Red Cell Distribution Width 13.6 % (11.6-14.8); White Blood Cell Count 5.4 X10^3/uL (4.5-11.0)
[2020-09-17 09:24] LABS: Alanine Aminotransferase 19 IU/L (<35); Albumin Globulin Ratio 1.5 (1.0-2.8); Alkaline Phosphatase 74 U/L (38-126); Aspartate Aminotransferase 25 IU/L (14-36); Bilirubin Total 0.4 mg/dL (0.2-1.3); Blood Urea Nitrogen 11 mg/dL (7-17); Calcium 9.9 mg/dL (8.4-10.2); Carbon Dioxide 28 mmol/L (22-32); Chloride 104 mmol/L (98-107); Estimated Glomerular Filt Rate > 60.0 mL/min (>60); Globulin 2.7 g/dL (1.7-4.1); Glucose 119 mg/dL (80-110); HEMOLYSIS < 15 (0-50); Potassium 4.9 mmol/L (3.4-5.1); Sodium 138 mmol/L (137-145); Total Protein 6.7 g/dL (6.3-8.2)
[2020-09-17 10:53] LABS: TSH w/ Reflex to FT4 3.02 uIU/mL (0.47-4.68)
[2020-09-17 18:05] LABS: Hemoglobin A1C% w Est Avg Glu 6.5 % (4.0-6.0)
== END ==
PROVIDERS: PCP Internal Medicine; Referring Provider Internal Medicine; Visit Provider Internal Medicine
DX: E11.40 Type 2 diabetes mellitus with diabetic neuropathy, unspecified (principal); I10 Essential (primary) hypertension; E03.9 Hypothyroidism, unspecified
CPT/HCPCS: 36415; 80053; 83036; 84443; 85025

== ENCOUNTER → 2021-01-04 13:48 | Outpatient (CLI) | payer MEDICARE, OTHER, SELFPAY ==
--- NOTE | 2021-01-04 13:51 | DI.RAD.S_ITS ---
PROCEDURE: XR CERVICAL SPINE 4V OR 5V INDICATIONS: NECK PAIN TECHNIQUE: 5 views of the cervical spine acquired. COMPARISON: None. FINDINGS: Bones: No fractures or dislocations to the C7 level. Oblique images demonstrate mild multilevel bony foraminal stenoses. Multilevel disc space narrowing and endplate osteophyte formation, as well as facet hypertrophy throughout the cervical spine. Soft tissues: No prevertebral soft tissue swelling. IMPRESSION: Multilevel degenerative disc and facet disease. No acute fracture. No osseous lesion. If symptoms and/or clinical suspicion for pathology persist, further assessment with repeat, or advanced imaging (e.g., CT, MRI, or bone scan) may be helpful for further assessment. Dictated by: Harris Garcia M.D. on 01/04/2021 at 15:31 Approved by: Harris Garcia M.D. on 01/04/2021 at 15:32
== END ==
PROVIDERS: PCP Internal Medicine; Referring Provider Physical Medicine & Rehabilitation; Visit Provider Physical Medicine & Rehabilitation
DX: M50.30 Other cervical disc degeneration, unspecified cervical region (principal); M50.20 Other cervical disc displacement, unspecified cervical region; R51.9 Headache, unspecified; F31.12 Bipolar disorder, current episode manic without psychotic features, moderate
CPT/HCPCS: 72050; 99214

== ENCOUNTER → 2021-04-09 16:04 | Outpatient (CLI) | payer MEDICARE, OTHER, SELFPAY ==
--- NOTE | 2021-04-09 16:09 | DI.RAD.S_ITS ---
PROCEDURE: XR HAND RT MIN 3V INDICATIONS: RIGHT HAND PAIN TECHNIQUE: 3 views of the hand(s) acquired. COMPARISON: None. FINDINGS: Bones: No fractures or dislocations. Carpal bones are normally aligned. No bony erosions. Joint spaces appear preserved. No suspicious bony lesions. Soft tissues: No suspicious soft tissue calcifications. IMPRESSION: 1. No fracture or dislocation. Dictated by: Wolf Henry M.D. on 04/09/2021 at 16:58 Approved by: Wolf Henry M.D. on 04/09/2021 at 16:59
== END ==
PROVIDERS: PCP Internal Medicine; Referring Provider Student in an Organized Health Care Education/Training Program; Visit Provider Student in an Organized Health Care Education/Training Program
DX: M79.641 Pain in right hand (principal)
CPT/HCPCS: 73130

== ENCOUNTER → 2021-07-20 15:03 | Outpatient (CLI) | payer MEDICARE, OTHER, SELFPAY ==
[2021-07-20 16:01] LABS: Add Manual Diff / Slide Review NO; Basophils Absolute Auto 0 /uL (0-100); Basophils Percent Auto 0.2 % (0-2); Eosinophils Absolute Auto 200 /uL (0-450); Eosinophils Percent Auto 3.1 % (2-4); Hematocrit 39.3 % (36-46); Hemoglobin 12.9 g/dL (12.0-16.0); Lymphocytes Absolute Auto 1700 /uL (1100-4500); Mean Corpuscular HGB Conc 32.8 % (30-36); Mean Corpuscular Hemoglobin 30.9 PG (26-34); Mean Corpuscular Volume 94.1 fL (80-100); Monocytes Absolute Auto 500 /uL (0-900); Monocytes Percent Auto 6.9 % (3-14); Neutrophils Absolute Auto 4500 /uL (1500-7000); Neutrophils Percent Auto 65.8 % (50-75); Platelet Count 282 X10^3/uL (150-400); Red Blood Cell Count 4.18 X10^6/uL (4.0-5.2); Red Cell Distribution Width 13.6 % (11.6-14.8); White Blood Cell Count 6.9 X10^3/uL (4.5-11.0)
[2021-07-20 16:23] LABS: Hemoglobin A1C% w Est Avg Glu 6.6 % (4.0-6.0)
[2021-07-20 16:35] LABS: Alanine Aminotransferase 20 IU/L (<35); Albumin 4.3 g/dL (3.5-5.0); Albumin Globulin Ratio 1.5 (1.0-2.8); Alkaline Phosphatase 71 U/L (38-126); Aspartate Aminotransferase 28 IU/L (14-36); BUN Creatinine Ratio 15.5 (6-22); Bilirubin Total 0.4 mg/dL (0.2-1.3); Blood Urea Nitrogen 9 mg/dL (7-17); Calcium 9.4 mg/dL (8.4-10.2); Carbon Dioxide 29 mmol/L (22-32); Chloride 106 mmol/L (98-107); Estimated Glomerular Filt Rate > 60.0 mL/min (>60); Globulin 2.8 g/dL (1.7-4.1); Glucose 107 mg/dL (80-110); HEMOLYSIS < 15 (0-50); Potassium 4.7 mmol/L (3.4-5.1); Sodium 139 mmol/L (137-145); Total Protein 7.1 g/dL (6.3-8.2)
[2021-07-20 16:39] LABS: High Sensitivity CRP - Cardiac 1.3 mg/L (1.0-3.0)
[2021-07-20 17:02] LABS: Erythrocyte Sedimentation Rate 13 MM/HR (0-20)
[2021-07-20 17:04] LABS: Thyroid Stimulating Hormone 0.957 uIU/mL (0.47-4.68)
== END ==
PROVIDERS: PCP Internal Medicine; Referring Provider Ophthalmology; Visit Provider Ophthalmology
DX: E11.9 Type 2 diabetes mellitus without complications (principal); G43.019 Migraine without aura, intractable, without status migrainosus; R44.1 Visual hallucinations; G44.52 New daily persistent headache (NDPH)
CPT/HCPCS: 36415; 80053; 83036; 84443; 85025; 85651; 86140

== ENCOUNTER → 2021-07-23 15:13 | Outpatient (CLI) | payer MEDICARE, OTHER, SELFPAY ==
--- NOTE | 2021-07-23 | DI.MRI.S_ITS ---
PROCEDURE: MR HEAD/BRAIN WO/W CON INDICATIONS: Visual hallucinations TECHNIQUE: Noncontrast axial T1 spin echo, axial T2 fast spin echo, sagittal and axial FLAIR, coronal T2 fast spin echo, axial gradient echo, axial diffusion and ADC through the brain. After the administration of contrast, axial and coronal T1 spin echo with fat saturation through the brain. COMPARISON: [facility], CT, CT HEAD/BRAIN WO CON, 06/16/2020, 22:26. FINDINGS: Image quality: Excellent. CSF spaces: Basal cisterns are patent. No extra-axial fluid collections. Ventricles are normal in size and shape. Brain: No midline shift. No intracranial bleeds or masses. No abnormal intracranial enhancement. There is cerebral volume loss for age. There is minimal periventricular white matter chronic small vessel ischemic change. The brainstem appears normal. Diffusion-weighted images demonstrate no acute ischemic insults. No chronic ischemic insults. Normal intravascular flow voids are present. Skull and face: Calvarial marrow is normal in signal. Orbits appear normal. Sinuses: Small left maxillary sinus retention cyst. Sinuses and mastoids otherwise appear clear. IMPRESSION: 1. Volume loss and small vessel ischemic disease. 2. No acute process. No recent infarct. Dictated by: Harris Garcia M.D. on 07/23/2021 at 16:05 Approved by: Harris Garcia M.D. on 07/23/2021 at 16:06
== END ==
PROVIDERS: PCP Internal Medicine; Referring Provider Ophthalmology; Visit Provider Ophthalmology
DX: G43.019 Migraine without aura, intractable, without status migrainosus (principal); E11.9 Type 2 diabetes mellitus without complications; R44.1 Visual hallucinations; G44.52 New daily persistent headache (NDPH)
CPT/HCPCS: 70553

== ENCOUNTER → 2021-08-17 13:41 | Outpatient (CLI) | payer MEDICARE, OTHER, SELFPAY ==
--- NOTE | 2021-08-17 | DI.MG.S_ITS ---
BILATERAL DIGITAL SCREENING MAMMOGRAM 3D/2D WITH CAD: 08/17/2021 CLINICAL: Routine screening. Comparison is made to exams dated: 06/27/2018 mammogram, 12/20/2016 mammogram - [facility], and 01/20/2015 mammogram - [facility]. The tissue of both breasts is predominantly fatty. Current study was also evaluated with a Computer Aided Detection (CAD) system. No significant masses, calcifications, or other findings are seen in either breast. There has been no significant interval change. IMPRESSION: NEGATIVE There is no mammographic evidence of malignancy. A 1 year screening mammogram is recommended. This exam was interpreted at Station ID: [id number]. NOTE: For mammograms, a report in lay terms will be sent to the patient. Approximately 15% of breast malignancies will not be visualized mammographically. In the management of a palpable breast mass, a negative mammogram must not discourage biopsy of a clinically suspicious lesion. Electronically Signed By: Kenia prakash/liborio:08/17/2021 14:54:23 letter sent: Normal Exam ACR BI-RADS Category 1: Negative 3341F
== END ==
PROVIDERS: PCP Internal Medicine; Referring Provider Internal Medicine; Visit Provider Internal Medicine
DX: Z12.31 Encounter for screening mammogram for malignant neoplasm of breast; Z13.820 Encounter for screening for osteoporosis; Z78.0 Asymptomatic menopausal state
CPT/HCPCS: 77063; 77067; 77080; 77081

== ENCOUNTER → 2021-11-30 11:14 | Outpatient (CLI) | payer MEDICARE, OTHER, SELFPAY ==
[2021-11-30 12:03] LABS: COVID19 -Nasal RAPID Negative (Negative)
== END ==
PROVIDERS: PCP Internal Medicine; Visit Provider Surgery
DX: Z20.822 Contact with and (suspected) exposure to COVID-19 (principal); Z01.812 Encounter for preprocedural laboratory examination
CPT/HCPCS: 87635; C9803

== ENCOUNTER 2021-12-01 09:25 | Day surgery (SDC) | payer MEDICARE, OTHER, SELFPAY ==
--- NOTE | 2021-12-01 | PATH_ITS ---
[facility] Accession Number: [id number] . 01 Material submitted: . gastrointestinal site - GASTRIC . 01 Clinical history: . A: R/O H. PYLORI . 01 Diagnosis: Stomach, Biopsy: Reactive gastropathy with mild chronic inflammation. Focal nonpolarizable foreign material in lamina propria suggestive of iron. Negative for intestinal metaplasia. No evidence of Helicobacter on H/E stain. Negative for dysplasia and malignancy. MRV 12/03/2021 1222 Local . 01 Electronically signed: . Shelley Rosario MD, Pathologist NPI- [id number] . 01 Gross description: . GASTRIC: Received in formalin are 3 fragment(s) of benson, soft tissue measuring 0.4 x 0.2 x 0.1 cm to 0.2 x 0.1 x 0.1 cm submitted entirely in 1 cassette(s) /CPE 12/02/2021 0534 Local . 01 Pathologist provided ICD-10: R10.13, R13.14 . 01 CPT . 318222 Specimen Comment: A courtesy copy of this report has been sent to [facility] Pathology Performed at: 01 [facility] [address] [place] [address] [address], [place], [place] [id number] MD Wolf Carpenter MD Phone: [phone]
[2021-12-01 10:14] VITALS: BMI 39.3
[2021-12-01 10:33] VITALS: BP 117/70; PULSE 63; RESP 18; TEMP 36.3; O2SAT 94
[2021-12-01] MEDS: SODIUM CHLORIDE 0.9% 1,000 ML 70 ML IV (10:37)
--- NOTE | 2021-12-01 11:38 | PM.HP.1 ---
History of Present Illness History of Present Illness Date Patient Seen: 12/01/21 Time Patient Seen: 11:38 Chief complaint: SDC Narrative: Patient is a very pleasant 71-year-old female who presented for upper endoscopy. She does have a history of symptoms of gastroesophageal reflux that have worsened over last few months. 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 She also describes intermittent difficulty swallowing. Patient History Medical History Asthma Bipolar 1 disorder Cervicogenic headache HNP (herniated nucleus pulposus), cervical HTN (hypertension) Hyperlipidemia Hypothyroidism Non-insulin dependent diabetes mellitus PTSD (post-traumatic stress disorder) Surgical History H/O laminectomy H/O total hysterectomy History of appendectomy History of bilateral knee replacement History of surgical removal of ganglion cyst History of tonsillectomy and adenoidectomy Hx of cholecystectomy Hx of gastric bypass S/P trigger finger release Status post surgery Family & Social History Social History: household members spouse Tobacco & Substance use: Smoking Status Former smoker alcohol intake never alcohol intake frequency 0-2 drinks per day Substance Use Type does not use Meds Home Medications and Allergies Home Medications Medication Instructions Recorded Confirmed Type atorvastatin 40 mg tablet (Lipitor) 40 mg PO HS ##0 08/03/17 12/01/21 History aspirin 81 mg tablet,delayed 81 mg PO QHS 09/29/17 12/01/21 History release ferrous sulfate 325 mg (65 mg 325 mg PO QDAY 09/29/17 12/01/21 History iron) tablet fexofenadine 180 mg tablet 180 mg PO QDAY 09/29/17 12/01/21 History levothyroxine 50 mcg tablet 50 mcg PO QDAY 09/29/17 12/01/21 History multivitamin 1 tab PO DAILY 09/29/17 12/01/21 History lisinopril 5 mg tablet 5 mg PO DAILY 10/18/17 12/01/21 History vitamin B complex (B 1 tab PO DAILY 04/24/18 12/01/21 History Complex-Vitamin B12 tablet) cholecalciferol (vitamin D3) 25 2,000 unit PO DAILY 01/29/19 12/01/21 History mcg (1,000 unit) capsule (Vitamin D3) omeprazole 20 mg capsule,delayed 20 mg PO BID 02/25/19 12/01/21 History release pregabalin 100 mg capsule (Lyrica) 100 mg PO TID #90 caps 05/19/20 12/01/21 Rx quetiapine 25 mg tablet See Rx Instructions PO .COMPLEX 10/20/20 12/01/21 Rx #90 tabs fluticasone propionate 110 1 inh inhalation BID PRN Adequate 01/04/21 12/01/21 History mcg/actuation HFA aerosol inhaler Ventilation lamotrigine 100 mg tablet 300 mg PO DAILY #270 tabs 01/15/21 12/01/21 Rx methocarbamol 500 mg tablet 500 mg PO QID PRN muscle pain 01/29/21 12/01/21 History quetiapine 50 mg tablet See Rx Instructions PO BEDTIME PRN 06/04/21 09/22/21 Rx sleep #180 tabs metformin 500 mg tablet 500 mg PO BID 09/22/21 12/01/21 History lithium carbonate 300 mg capsule 300 mg PO BEDTIME #90 caps 11/11/21 12/01/21 Rx Allergies Allergy/AdvReac Type Severity Reaction Status Date / Time hydrocodone [From VICODIN] Allergy Severe Anaphylaxis Verified 12/01/21 10:06 nitrofurantoin Allergy Severe SEVERE Verified 12/01/21 10:06 [From MACROBID] HEADACHES adhesive tape Allergy Intermediate Blister Verified 12/01/21 10:06 iodine Allergy Intermediate hand Verified 12/01/21 10:06 swelling zolpidem [ZOLPIDEM] Allergy Unknown sleep Verified 12/01/21 10:06 walking/cooking indomethacin Allergy Dizziness Verified 12/01/21 10:06 oxycodone Allergy Rash Verified 12/01/21 10:06 magnesium citrate AdvReac Severe Palpitation Verified 09/22/21 08:17 s codeine [CODEINE] AdvReac Unknown itching Verified 12/01/21 10:06 amoxicillin AdvReac Verified 12/01/21 10:06 Iodine and Iodide Containing AdvReac started Verified 12/01/21 10:06 Produc swelling, doctor said to enter as allergy tramadol AdvReac vertigo Verified 12/01/21 10:06 vaginal creams AdvReac Unknown Uncoded 12/01/21 10:06 Review of Systems Review of Systems ROS: Yes All systems reviewed with the patient and are negative except as otherwise documented Exam Vital Signs (past 8 hours): - 12/01/21 10:33 Temperature 97.3 F L Pulse Rate 63 Respiratory Rate 18 Blood Pressure 117/70 Pulse Oximetry 94 Oxygen Delivery Method Room Air Oxygen Delivery Method Room Air Const General: cooperative, healthy appearing, comfortable, well developed, well groomed and No acute distress Nutritional Appearance: overweight HENMT Head: normocephalic and atraumatic Resp Effort & Inspection: normal respiratory effort, able to speak in complete sentences and no audible wheezes Auscultation: clear to auscultation bilaterally Cardio Rate: regular rate Rhythm: regular rhythm GI Palpation: soft Auscultation: normal bowel sounds Assessment & Plan Assessment & Plan narrative: 1. Gastroesophageal reflux 2. History of gastrojejunal ulcerations 3. Intermittent dysphagia EGD with possible dilation today, further recommendations to follow Time Spent With Patient Critical Care time: I spent a total of [] minutes of critical care time on this patient's care today; this time is exclusive of procedural time.
--- NOTE | 2021-12-01 11:59 | PM.OP.EGD ---
Operative Date/Time/Diagnoses Date of procedure: 12/01/21 Time of procedure: 11:49 Procedure Notes Procedure in detail: Surgeon: Nohemy Shafer DO Procedure: Esophagogastrojejunoscopy with biopsy Preoperative diagnosis: 1. Gastroesophageal reflux symptoms 2. History of gastrojejunal ulcerations 3. Intermittent dysphagia Postoperative diagnosis: 1. Tortuous esophagus 2. Friable gastric mucosa biopsied,, prior ulcerations have resolved 3. Normal-appearing jejunal mucosa Medications: Monitored anesthesia care Preanesthesia Assessment An H and P was performed/updated and the Px?s ASA class is 3. The procedure was discussed in detail with the patient. The potential risks and complications including infection, bleeding, missed lesions, perforation, need for surgery in case of perforation, prolonged hospital stay, and were explained. A brief question and answer period was allotted and once all questions were answered, informed consent was obtained. The patient was brought back to the procedure room and placed on standard monitoring. The patient?s vital signs were monitored continuously throughout the entire procedure. Prior to starting, a timeout was performed to confirm the patient?s identity, allergies, medications, and procedure. Procedure in detail The patient was placed in left lateral decubitus position and a bite block was inserted. The tip of the upper endoscope was placed into the mouth and advanced without difficulty under direct visualization into the esophagus. Esophagus: Tortuous esophagus with no strictures identified Stomach: Evidence of prior surgery consistent with Delmy-en-Y gastric bypass. Gastric mucosa was noted to be quite friable with contact bleeding. Biopsies were obtained to rule out H pylori infection. A stitch was found at the gastrojejunal junction, however prior seen ulcerations have resolved. Jejunum: A parent any apparent limbs were identified, normal appearing mucosa The patient tolerated the procedure well and will be brought back to the recovery area to be discharged once criteria are met. Complications There were no complications and estimated blood loss was minimal. Recommendations: Resume previous diet Continue outPx medications Follow up pathology results Office follow up in Dr. Kelly to be scheduled An emergency contact number was given to the patient for any complications related to the procedure
[2021-12-01 12:00] VITALS: BP 119/49; PULSE 96; RESP 15; TEMP 36.2; O2SAT 95
[2021-12-01 12:05] VITALS: BP 120/66; PULSE 63; RESP 15; O2SAT 95
[2021-12-01 12:10] VITALS: BP 94/72; PULSE 71; RESP 15; O2SAT 96
[2021-12-01 12:15] VITALS: BP 131/75; PULSE 70; RESP 13; O2SAT 96
[2021-12-01 12:16] VITALS: BP 125/77; PULSE 62; RESP 12; O2SAT 96
--- NOTE | 2021-12-01 12:35 | SUR.PHASEII ---
Pt A&Ox4, denies any distress and ready to discharge home. Discharge instuctions reviewed with patient and spouse with time allowed for questions. Pt left unit with all personal belongings and written instructions via w/c to ER exit where spouse will transport pt home.
== END 2021-12-01 12:35 | disposition home or self-care (01) ==
PROVIDERS: PCP Internal Medicine; Referring Provider Student in an Organized Health Care Education/Training Program; Visit Provider Student in an Organized Health Care Education/Training Program
PROC: 0DJ08ZZ Inspection of Upper Intestinal Tract, Via Natural or Artificial Opening Endoscopic (ICD-10-PCS; CPT 43235; principal; 2021-12-01 11:00)
DX: R13.10 Dysphagia, unspecified (principal); Z87.11 Personal history of peptic ulcer disease; T18.2XXA Foreign body in stomach, initial encounter; K31.9 Disease of stomach and duodenum, unspecified; K29.50 Unspecified chronic gastritis without bleeding
CPT/HCPCS: 43239; 82962; J2704

== ENCOUNTER → 2021-12-09 12:46 | Outpatient (CLI) | payer MEDICARE, OTHER, SELFPAY ==
[2021-12-09 14:16] LABS: Lithium 0.5 mmol/L (0.6-1.2)
[2021-12-13 13:36] LABS: Lamotrigine Lamictal 5.5 ug/mL (2.0-20.0)
== END ==
PROVIDERS: PCP Internal Medicine; Referring Provider Psychiatry & Neurology Psychiatry; Visit Provider Psychiatry & Neurology Psychiatry
DX: F31.9 Bipolar disorder, unspecified (principal)
CPT/HCPCS: 36415; 80175; 80178

== ENCOUNTER 2022-06-23 13:24 | Emergency (ER) | payer MEDICARE, OTHER, SELFPAY ==
[2022-06-23 13:46] VITALS: BP 141/65; PULSE 65; RESP 15; TEMP 35.7; O2SAT 99; BMI 36.6
--- NOTE | 2022-06-23 18:25 | DI.RAD.S_ITS ---
PROCEDURE: XR CHEST 2V INDICATIONS: diminished breath sounds LLL, asthma history, cough TECHNIQUE: 2 views of the chest were acquired. COMPARISON: [facility], CR, XR CHEST 1V, 08/27/2019, 6:06. FINDINGS: Surgical changes and devices: None. Lungs and pleura: Lungs are clear. No pleural effusions or pneumothorax. Mediastinum: Mediastinal contours are normal. Heart size is normal. Bones and chest wall: No suspicious bony abnormalities. Soft tissues appear unremarkable. IMPRESSION: No acute cardiopulmonary abnormality. Dictated by: Gibson Bhakta M.D. on 06/23/2022 at 19:48 Approved by: Gibson Bhakta M.D. on 06/23/2022 at 19:48
--- NOTE | 2022-06-23 18:29 | ED.URI ---
HPI - URI/Sore Throat <Shelley Newman, [facility] - Last Filed: 06/23/22 19:58> General Chief Complaint: Upper Respiratory Symptoms Stated Complaint: possible sinus infection for about 10 days, cough Time Seen by Provider: 06/23/22 17:53 Source: patient Mode of arrival: Ambulatory History of Present Illness HPI Narrative: This is a 71-year-old female presents to the emergency department with 10 days of nasal congestion, postnasal drip and a productive cough. She states that she is been sick for approximately 1 month, has a history of asthma, states that she feels frequent coughing attacks at nighttime especially, has had increased congestion, occasional shortness of breath, denies orthopnea and denies exertional shortness of breath. States that she has not taking any cold medicines for her symptoms but she is taking all of her asthma medications and other medications as prescribed. Patient has a history of bipolar, she said that she has been using her Flovent and rescue inhaler more frequently than usual. She denies fever, chills, nausea vomiting, weakness, increased fatigue or other complaint. Denies hemoptysis. She denies chest pain, history of blood clots, is not anticoagulated states that she takes a baby aspirin daily. She denies palpitations or dizziness. Related Data Home Medications Medication Instructions Recorded Confirmed atorvastatin 40 mg tablet (Lipitor) 40 mg PO HS ##0 08/03/17 12/01/21 aspirin 81 mg tablet,delayed 81 mg PO QHS 09/29/17 12/01/21 release ferrous sulfate 325 mg (65 mg 325 mg PO QDAY 09/29/17 12/01/21 iron) tablet fexofenadine 180 mg tablet 180 mg PO QDAY 09/29/17 12/01/21 levothyroxine 50 mcg tablet 50 mcg PO QDAY 09/29/17 12/01/21 multivitamin 1 tab PO DAILY 09/29/17 12/01/21 lisinopril 5 mg tablet 5 mg PO DAILY 10/18/17 12/01/21 vitamin B complex (B 1 tab PO DAILY 04/24/18 12/01/21 Complex-Vitamin B12 tablet) cholecalciferol (vitamin D3) 25 2,000 unit PO DAILY 01/29/19 12/01/21 mcg (1,000 unit) capsule (Vitamin D3) omeprazole 20 mg capsule,delayed 20 mg PO BID 02/25/19 12/01/21 release fluticasone propionate 110 1 inh inhalation BID PRN Adequate 01/04/21 12/01/21 mcg/actuation HFA aerosol inhaler Ventilation methocarbamol 500 mg tablet 500 mg PO QID PRN muscle pain 01/29/21 12/01/21 metformin 500 mg tablet 500 mg PO BID 09/22/21 12/01/21 Previous Rx's Medication Instructions Recorded pregabalin 100 mg capsule (Lyrica) 100 mg PO TID #90 caps 05/19/20 lamotrigine 100 mg tablet 300 mg PO DAILY #270 tabs 12/21/21 lithium carbonate 300 mg capsule 300 mg PO BEDTIME #90 caps 12/21/21 quetiapine 25 mg tablet See Rx Instructions PO .COMPLEX 12/21/21 #90 tabs benzonatate 100 mg capsule 100 mg PO BID PRN cough #20 caps 06/23/22 cetirizine 10 mg tablet 10 mg PO DAILY PRN allergy 06/23/22 symptoms #14 tabs doxycycline hyclate 100 mg capsule 100 mg PO BID 7 days #14 caps 06/23/22 guaifenesin 600 mg tablet, 600 mg PO BID PRN productive cough 06/23/22 extended release 12 hr (Mucinex) #14 tabs methylprednisolone 4 mg tablets in See Rx Instructions PO .COMPLEX 06/23/22 a dose pack (Medrol ([place])) #21 ea Allergies Allergy/AdvReac Type Severity Reaction Status Date / Time hydrocodone [From VICODIN] Allergy Severe Anaphylaxis Verified 06/23/22 13:46 nitrofurantoin Allergy Severe SEVERE Verified 06/23/22 13:46 [From MACROBID] HEADACHES adhesive tape Allergy Intermediate Blister Verified 06/23/22 13:46 iodine Allergy Intermediate hand Verified 06/23/22 13:46 swelling zolpidem [ZOLPIDEM] Allergy Unknown sleep Verified 06/23/22 13:46 walking/cooking indomethacin Allergy Dizziness Verified 06/23/22 13:46 oxycodone Allergy Rash Verified 06/23/22 13:46 magnesium citrate AdvReac Severe Palpitation Verified 06/23/22 13:46 s codeine [CODEINE] AdvReac Unknown itching Verified 06/23/22 13:46 amoxicillin AdvReac Verified 06/23/22 13:46 Iodine and Iodide Containing AdvReac started Verified 06/23/22 13:46 Produc swelling, doctor said to enter as allergy tramadol AdvReac vertigo Verified 06/23/22 13:46 vaginal creams AdvReac Unknown Uncoded 12/01/21 10:06 Review of Systems <KIAN Lara - Last Filed: 06/23/22 19:58> Review of Systems ROS Unobtainable: All systems reviewed & are unremarkable except as noted in HPI and below Patient History <KIAN Lara - Last Filed: 06/23/22 19:58> Medical History Asthma Bipolar 1 disorder Cervicogenic headache HNP (herniated nucleus pulposus), cervical HTN (hypertension) Hyperlipidemia Hypothyroidism Non-insulin dependent diabetes mellitus PTSD (post-traumatic stress disorder) Surgical History H/O laminectomy H/O total hysterectomy History of appendectomy History of bilateral knee replacement History of surgical removal of ganglion cyst History of tonsillectomy and adenoidectomy Hx of cholecystectomy Hx of gastric bypass S/P trigger finger release Status post surgery Social History marital status: household members: spouse education level: vocational occupational status: disabled and other 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 General: cooperative, comfortable, in no acute distress, well groomed HEENT: symmetrical facial expressions, moist mucous membranes, sinus congestion, sinus tenderness to palpation, without stridor, without lymphadenopathy neck is supple, likely postnasal drip sinusitis as patient sinus tenderness over frontal maxillary sinuses to palpation Cardiovascular: regular rate and rhythm, no peripheral edema, warm extremities Respiratory: normal effort, diminished breath sounds to the left posterior lower with good aeration otherwise throughout. Without wheezing, increased respiratory effort, hypoxia. Patient is able to speak in complete sentences without stridor, or abnormal breath sounds. No retractions or tachypnea. Frequent cough, mild congestion, MSK: moves all extremities, neurovascularly intact, no weakness, normal tone Skin: brisk capillary refill, without pallor or erythema Neuro: normal speech and cognition, A&O x3, ambulatory, clear speech Psych: mental status is grossly normal, congruent mood, normal affect, pleasant and cooperative Initial Vital Signs Initial Vital Signs: Vital Signs Temperature 96.3 F L 06/23/22 13:46 Pulse Rate 65 06/23/22 13:46 Respiratory Rate 15 06/23/22 13:46 Blood Pressure 141/65 H 06/23/22 13:46 Pulse Oximetry 99 06/23/22 13:46 Oxygen Delivery Method 06/23/22 13:46 <Misael Rasmussen DO - Last Filed: 06/23/22 21:28> Initial Vital Signs Initial Vital Signs: Vital Signs Temperature 96.3 F L 06/23/22 13:46 Pulse Rate 65 06/23/22 13:46 Respiratory Rate 15 06/23/22 13:46 Blood Pressure 141/65 H 06/23/22 13:46 Pulse Oximetry 99 06/23/22 13:46 Oxygen Delivery Method 06/23/22 13:46 Course <KIAN Lara - Last Filed: 06/23/22 19:58> Orders Ordered: ED Orders 06/23/22 18:25 Chest [XR chest 2V] Stat Discontinued Medications Benzonatate (Benzonatate 100 Mg Capsule) 100 mg PO NOW ONE Stop: 06/23/22 19:32 Last Admin: 06/23/22 19:44 Dose: 100 mg Documented By: MARY Dexamethasone (Dexamethasone 10 Mg/Ml Vial) 10 mg PO NOW ONE Stop: 06/23/22 18:13 Last Admin: 06/23/22 19:02 Dose: 10 mg Documented By: JUVE Doxycycline Hyclate (Doxycycline Hyclate 100 Mg Tablet) 100 mg PO NOW ONE Stop: 06/23/22 19:32 Last Admin: 06/23/22 19:44 Dose: 100 mg Documented By: MARY Guaifenesin (Guaifenesin Er 600 Mg Tab) 600 mg PO NOW ONE Stop: 06/23/22 18:13 Last Admin: 06/23/22 19:02 Dose: 600 mg Documented By: JUVE Vital Signs Vital signs: Vital Signs - 8 hr 06/23/22 13:46 06/23/22 19:53 Temperature 96.3 F L Pulse Rate 65 66 Respiratory Rate 15 18 Blood Pressure 141/65 H 170/70 H Pulse Oximetry 99 99 Oxygen Delivery Method Room Air Room Air <Misael Rasmussen DO - Last Filed: 06/23/22 21:28> Orders Ordered: ED Orders 06/23/22 18:25 Chest [XR chest 2V] Stat Discontinued Medications Benzonatate (Benzonatate 100 Mg Capsule) 100 mg PO NOW ONE Stop: 06/23/22 19:32 Last Admin: 06/23/22 19:44 Dose: 100 mg Documented By: MARY Dexamethasone (Dexamethasone 10 Mg/Ml Vial) 10 mg PO NOW ONE Stop: 06/23/22 18:13 Last Admin: 06/23/22 19:02 Dose: 10 mg Documented By: JUVE Doxycycline Hyclate (Doxycycline Hyclate 100 Mg Tablet) 100 mg PO NOW ONE Stop: 06/23/22 19:32 Last Admin: 06/23/22 19:44 Dose: 100 mg Documented By: MARY Guaifenesin (Guaifenesin Er 600 Mg Tab) 600 mg PO NOW ONE Stop: 06/23/22 18:13 Last Admin: 06/23/22 19:02 Dose: 600 mg Documented By: JUVE Vital Signs Vital signs: Vital Signs - 8 hr 06/23/22 13:46 06/23/22 19:53 Temperature 96.3 F L Pulse Rate 65 66 Respiratory Rate 15 18 Blood Pressure 141/65 H 170/70 H Pulse Oximetry 99 99 Oxygen Delivery Method Room Air Room Air MDM - URI/Sore Throat <JOSE LaraP - Last Filed: 06/23/22 19:58> Imaging Data Chest x-ray: Radiologist's Impression: PROCEDURE:? XR CHEST 2V ? INDICATIONS:? diminished breath sounds LLL, asthma history, cough ? TECHNIQUE:? 2 views of the chest were acquired.? ? COMPARISON:? [facility], CR, XR CHEST 1V, 08/27/2019, 6:06. ? FINDINGS:? ? Surgical changes and devices:? None.? ? Lungs and pleura:? Lungs are clear.? No pleural effusions or pneumothorax.? ? Mediastinum:? Mediastinal contours are normal.? Heart size is normal.? ? Bones and chest wall:? No suspicious bony abnormalities.? Soft tissues appear unremarkable.? ? IMPRESSION:? No acute cardiopulmonary abnormality. ? ? ? Dictated by: Gibson Bhakta M.D. on 06/23/2022 at 19:48 ? ? Approved by: Gibson Bhakta M.D. on 06/23/2022 at 19:48 ? MDM Narrative Medical decision making narrative: Chief Complaint: Congestion, sinus tenderness, productive cough with history of asthma x3 weeks This is a 71-year-old female presents to the emergency department with 10 days of nasal congestion, postnasal drip and a productive cough. She states that she is been sick for approximately 1 month, has a history of asthma, states that she feels frequent coughing attacks at nighttime especially, has had increased congestion, occasional shortness of breath, denies orthopnea and denies exertional shortness of breath. Differential diagnoses include but are not limited to: Sinusitis, upper respiratory viral infection, pneumonia, acute asthma exacerbation I have reviewed the patient's vital signs and nursing notes as well as prior records if available. Independently reviewed imaging including: Chest x-ray ordered for decreased breath sounds to the left lower lobe, no acute pulmonary visualized on x-ray Discussion: Patient does not have respiratory distress, wheezing, rhonchi or crackles. She has history of asthma and states that her cough is bothersome, she has congestion, sinus tenderness to palpation, symptoms lasting for 3 weeks and over 10 days. She has not been using any medications for her symptoms, prescribed for her a steroid pack, encouraged her to use your inhalers and fluticasone nasal spray as needed, Mucinex for productive cough, Tessalon Perles, doxycycline b.i.d. x7 days for sinusitis. Patient states that is her worst symptom. She appears hydrated, without systemic illness, no fatigue, chills or fever. Shared decision making: With patient regarding treatment and care Patient's symptoms improved over duration of stay with above-stated therapies. Social considerations that may affect disposition: None Questions are addressed and there is agreement with the plan and for follow-up. Patient is appropriate for outpatient management. MIPS: #116 - Avoidance of Antibiotic Treatment for Acute Bronchitis/Bronchiolitis [] The patient has acute bronchitis/bronchiolitis and antibiotics were not prescribed or dispensed today. [SATISFIES MIPS PERFORMANCE] [x] The patient has acute bronchitis/ bronchiolitis. Antibiotics were prescribed or dispensed because the patient meets one of the following: Patient has a sinusitis with sinus tenderness and symptoms ongoing for more than 10 days, she also has asthma. Discharge Plan Departure Patient Disposition: Home Clinical Impression: Bronchitis Sinusitis Qualifiers: Sinusitis location: unspecified location Chronicity: acute Recurrence: not specified as recurrent Qualified Code(s): J01.90 - Acute sinusitis, unspecified Instructions: DI for Sinusitis, DI for Acute Bronchitis Activity Restrictions/Additional Instructions: *You have been diagnosed with a sinus infection, we will treat you for bronchitis which has triggered your reactive airway disease. Please use your inhalers as prescribed, please take the steroid to help reduce the shortness of breath exacerbation, start taking Zyrtec 10 mg each night, use Tessalon Perles as needed for your cough, Mucinex for productive cough that is thick, drink plenty of water, and follow-up with your primary doctor as needed. We will call you if something comes back concerning but today your symptoms should improve with these treatments. Thank you for your patients, sorry you have waited as long as you did. *What to do: *Please continue to take your regular medications as directed. [ x] New medication prescriptions sent to your pharmacy: [ DOD] [ ] New medication written as a paper prescription [ ] No new medications given *Please follow up with your primary care provider in 2-3 days, call for an appointment. Let them know you were seen in the Emergency Department and that we asked that you be seen for follow-up. We will electronically transmit a record of today's note if your PCP is in our system *If you do not have a primary care provider please contact [phone] to establish care with one of the [facility] primary care providers. *Return to Emergency Department if you should have any new, worsening, or concerning symptoms, such as [fever greater than 101F, chills, worsening pain, persistent vomiting or other bothersome symptoms]. Prescriptions: New methylprednisolone [Medrol ([place])] 4 mg tablets,dose pack See Rx Instructions .ROUTE .COMPLEX Qty: 21 0RF Rx Instructions: orally per package directions guaifenesin [Mucinex] 600 mg tablet extended release 12hr 600 mg PO BID PRN (Reason: productive cough) Qty: 14 0RF cetirizine 10 mg tablet 10 mg PO DAILY PRN (Reason: allergy symptoms) Qty: 14 0RF doxycycline hyclate 100 mg capsule 100 mg PO BID 7 Days Qty: 14 0RF benzonatate 100 mg capsule 100 mg PO BID PRN (Reason: cough) Qty: 20 0RF No Action vitamin B complex [B Complex-Vitamin B12] tablet 1 tab PO DAILY fluticasone propionate 110 mcg/actuation HFA aerosol inhaler 1 inh INHALATION BID PRN (Reason: Adequate Ventilation) pregabalin [Lyrica] 100 mg capsule 100 mg PO TID Qty: 90 0RF omeprazole 20 mg capsule,delayed release(DR/EC) 20 mg PO BID methocarbamol 500 mg tablet 500 mg PO QID PRN (Reason: muscle pain) lamotrigine 100 mg tablet 300 mg PO DAILY Qty: 270 3RF lithium carbonate 300 mg capsule 300 mg PO BEDTIME Qty: 90 3RF Rx Instructions: Always take with food quetiapine 25 mg tablet See Rx Instructions PO .COMPLEX Qty: 90 3RF Rx Instructions: Take 25-50 mg (1-2 tabs) PO QHS for sleep. atorvastatin [Lipitor] 40 MG tablet 40 mg PO HS Qty: 0 fexofenadine 180 mg tablet 180 mg PO QDAY Label Comments: for allergies aspirin 81 mg tablet,delayed release (DR/EC) 81 mg PO QHS levothyroxine 50 mcg tablet 50 mcg PO QDAY ferrous sulfate 325 mg (65 mg iron) Tablet 325 mg PO QDAY multivitamin Tablet 1 tab PO DAILY cholecalciferol (vitamin D3) [Vitamin D3] 1,000 unit capsule 2,000 unit PO DAILY metformin 500 mg tablet 500 mg PO BID lisinopril 5 mg Tablet 5 mg PO DAILY Referrals: Fernando Chaparro MD [Primary Care Provider] - Stand Alone Forms: Patient Portal/API <Misael Rasmussen DO - Last Filed: 06/23/22 21:28> Cosign ED Attending Cosignature Attestation: Dr Rasmussen Co-Sign Statement: I was available for consultation during this patient's emergency department visit. This chart is signed by myself for administrative purposes only. I did not have direct contact with this patient during this visit. They were seen independently by the APC.
[2022-06-23] MEDS: DEXAMETHASONE 10 MG/ML VIAL PO (19:02)
[2022-06-23] MEDS: guaiFENesin ER 600 MG TAB PO (19:02)
[2022-06-23] MEDS: BENZONATATE 100 MG CAPSULE PO (19:44)
[2022-06-23] MEDS: DOXYCYCLINE HYCLATE 100 MG TABLET PO (19:44)
[2022-06-23 19:53] VITALS: BP 170/70; PULSE 66; RESP 18; O2SAT 99
== END 2022-06-23 19:55 | disposition home or self-care (01) ==
PROVIDERS: Emergency Provider Nurse Practitioner Critical Care Medicine; PCP Internal Medicine
DX: J40 Bronchitis, not specified as acute or chronic (principal); J01.90 Acute sinusitis, unspecified
CPT/HCPCS: 71046; 99283; J1100

== ENCOUNTER → 2022-08-02 16:02 | Outpatient (CLI) | payer MEDICARE, OTHER, SELFPAY ==
--- NOTE | 2022-08-02 | DI.US.S_ITS ---
PROCEDURE: US THYROID INDICATIONS: THYROID NODULES FOLLOW UP TECHNIQUE: Real-time scanning was performed of the thyroid gland, with image documentation. COMPARISON: [facility], US, US THYROID, 12/28/2018, 9:03. FINDINGS: Right: Thyroid lobe measures 5.2 x 2.0 x 2.1 cm, and is homogeneous in echotexture. Left: Thyroid lobe measures 5.7 x 1.5 x 1.3 cm, and is homogenous in echotexture. Isthmus: 0.2 cm thick. Three benign cysts are seen within the thyroid. The right mid thyroid cyst has decreased in size. No suspicious solid mass. IMPRESSION: Benign thyroid cysts are again seen. No suspicious thyroid nodule. ACR TI-RADS definitions and recommendations: TI-RADS 1 (benign): 0 points. FNA not needed. TI-RADS 2 (not suspicious): 2 points. FNA not needed. TI-RADS 3 (mildly suspicious): 3 points. * FNA if 2.5 cm or larger, follow up if 1.5 cm or larger (at 1, 3, and 5 years). TI-RADS 4 (moderately suspicious): 4-6 points. * FNA if 1.5 cm or larger, follow up if 1 cm or larger (at 1, 2, 3, and 5 years). TI-RADS 5 (highly suspicious): 7 points or more. * FNA if 1 cm or larger, follow up if 0.5 cm or larger (every year for 5 years). Approved by: Geo Jones M.D. on 08/03/2022 at 12:50
== END ==
PROVIDERS: PCP Internal Medicine; Referring Provider Physician Assistant; Visit Provider Physician Assistant
DX: E04.2 Nontoxic multinodular goiter (principal)
CPT/HCPCS: 76536

== ENCOUNTER 2022-09-17 19:01 | Emergency (ER) | payer MEDICARE, OTHER, SELFPAY ==
[2022-09-17 19:30] VITALS: PULSE 57; RESP 16; TEMP 36.1; O2SAT 99; BMI 39.5
--- NOTE | 2022-09-17 19:49 | DI.RAD.S_ITS ---
PROCEDURE: XR KNEE RT 3V INDICATIONS: atraumatic knee pain TECHNIQUE: 3 views of the knee were acquired. COMPARISON: [facility] CARMEN Olivo, SANGEETHA KNEE 3 VIEWS BILATERAL, 04/04/2017, 14:09. [facility] CARMEN Olivo, XR KNEE ARTHRITIC SERIES BI, 11/17/2021, 13:27. FINDINGS: Bones: Right knee arthroplasty hardware is seen, without findings of failure or loosening. A large portion of the fibula is absent, as previously demonstrated. Negative for acute fracture. Soft tissues: There is a mild joint effusion. No suspicious soft tissue calcifications. IMPRESSION: Unremarkable right knee arthroplasty hardware. Mild joint effusion. 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 Dictated by: Lukasz Ayon M.D. on 09/17/2022 at 19:30 Approved by: Lukasz Ayon M.D. on 09/17/2022 at 19:32
--- NOTE | 2022-09-17 21:21 | ED.LOWEXIN ---
HPI - Extremity Injury (Lower) General Chief Complaint: Extremity Injury, Lower Stated Complaint: R knee inj Time Seen by Provider: 09/17/22 20:29 Source: patient Mode of arrival: Ambulatory Limitations: no limitations History of Present Illness HPI Narrative: 71-year-old female who has had a right knee replacement who states she is had several falls over the past 6 months. She states she is had some discomfort in her right knee because of these falls but with the past 24 hours she is thought that the discomfort has been much worse. Difficulty with going from sitting to a standing position. When she is standing and walking she has very little discomfort. There was not 1 specific incident that caused the pain to occur. No fevers. She thinks that the right knee is somewhat swollen. Related Data Home Medications Medication Instructions Recorded Confirmed atorvastatin 40 mg tablet (Lipitor) 40 mg PO HS ##0 08/03/17 12/01/21 aspirin 81 mg tablet,delayed 81 mg PO QHS 09/29/17 12/01/21 release ferrous sulfate 325 mg (65 mg 325 mg PO QDAY 09/29/17 12/01/21 iron) tablet fexofenadine 180 mg tablet 180 mg PO QDAY 09/29/17 12/01/21 levothyroxine 50 mcg tablet 50 mcg PO QDAY 09/29/17 12/01/21 multivitamin 1 tab PO DAILY 09/29/17 12/01/21 lisinopril 5 mg tablet 5 mg PO DAILY 10/18/17 12/01/21 vitamin B complex (B 1 tab PO DAILY 04/24/18 12/01/21 Complex-Vitamin B12 tablet) cholecalciferol (vitamin D3) 25 2,000 unit PO DAILY 01/29/19 12/01/21 mcg (1,000 unit) capsule (Vitamin D3) omeprazole 20 mg capsule,delayed 20 mg PO BID 02/25/19 12/01/21 release fluticasone propionate 110 1 inh inhalation BID PRN Adequate 01/04/21 12/01/21 mcg/actuation HFA aerosol inhaler Ventilation methocarbamol 500 mg tablet 500 mg PO QID PRN muscle pain 01/29/21 12/01/21 metformin 500 mg tablet 500 mg PO BID 09/22/21 12/01/21 Previous Rx's Medication Instructions Recorded pregabalin 100 mg capsule (Lyrica) 100 mg PO TID #90 caps 05/19/20 lamotrigine 100 mg tablet 300 mg PO DAILY #270 tabs 12/21/21 lithium carbonate 300 mg capsule 300 mg PO BEDTIME #90 caps 12/21/21 quetiapine 25 mg tablet See Rx Instructions PO .COMPLEX 12/21/21 #90 tabs benzonatate 100 mg capsule 100 mg PO BID PRN cough #20 caps 06/23/22 cetirizine 10 mg tablet 10 mg PO DAILY PRN allergy 06/23/22 symptoms #14 tabs guaifenesin 600 mg tablet, 600 mg PO BID PRN productive cough 06/23/22 extended release 12 hr (Mucinex) #14 tabs methylprednisolone 4 mg tablets in See Rx Instructions PO .COMPLEX 06/23/22 a dose pack (Medrol ([place])) #21 ea Allergies Allergy/AdvReac Type Severity Reaction Status Date / Time hydrocodone [From VICODIN] Allergy Severe Anaphylaxis Verified 06/23/22 13:46 nitrofurantoin Allergy Severe SEVERE Verified 06/23/22 13:46 [From MACROBID] HEADACHES adhesive tape Allergy Intermediate Blister Verified 06/23/22 13:46 iodine Allergy Intermediate hand Verified 06/23/22 13:46 swelling zolpidem [ZOLPIDEM] Allergy Unknown sleep Verified 06/23/22 13:46 walking/cooking indomethacin Allergy Dizziness Verified 06/23/22 13:46 oxycodone Allergy Rash Verified 06/23/22 13:46 magnesium citrate AdvReac Severe Palpitation Verified 06/23/22 13:46 s codeine [CODEINE] AdvReac Unknown itching Verified 06/23/22 13:46 amoxicillin AdvReac Verified 06/23/22 13:46 Iodine and Iodide Containing AdvReac started Verified 06/23/22 13:46 Produc swelling, doctor said to enter as allergy tramadol AdvReac vertigo Verified 06/23/22 13:46 vaginal creams AdvReac Unknown Uncoded 12/01/21 10:06 Review of Systems Constitutional Constitutional: Reports system reviewed and no additional complaints, except as documented Musculoskeletal Musculoskeletal: Reports system reviewed and no additional complaints, except as documented Integumentary/Breasts Skin/Breast: Reports system reviewed and no additional complaints, except as documented Neurologic Neurologic: Reports system reviewed and no additional complaints, except as documented Patient History Medical History Asthma Bipolar 1 disorder Cervicogenic headache HNP (herniated nucleus pulposus), cervical HTN (hypertension) Hyperlipidemia Hypothyroidism Non-insulin dependent diabetes mellitus PTSD (post-traumatic stress disorder) Surgical History H/O laminectomy H/O total hysterectomy History of appendectomy History of bilateral knee replacement History of surgical removal of ganglion cyst History of tonsillectomy and adenoidectomy Hx of cholecystectomy Hx of gastric bypass S/P trigger finger release Status post surgery Social History marital status: household members: spouse education level: vocational occupational status: disabled and other 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 Smoking Status: Former smoker alcohol intake: never substance use type: does not use Type(s) of exercise: none and walking frequency: 1-2 times per week duration: 30-45 minutes/day Smoking Status: Former smoker alcohol intake frequency: 0-2 drinks per day Substance Use Type: does not use Exam Initial Vital Signs Initial Vital Signs: Vital Signs Temperature 97 F L 09/17/22 19:30 Pulse Rate 57 L 09/17/22 19:30 Respiratory Rate 16 09/17/22 19:30 Pulse Oximetry 99 09/17/22 19:30 Oxygen Delivery Method Room Air 09/17/22 19:30 Const General: cooperative and healthy appearing HENMT Head: normal to inspection and normocephalic Skin General: no rashes or lesions noted Neuro General: patient alert, patient awake and moves all extremities Extrem Other: Patient does have tenderness to palpation along the medial hamstring and also over on the insertion site the anterior tibia. Her patellar tendon and quadriceps tendon are unremarkable. Her lateral hamstring and medial quadriceps are unremarkable. Course Orders Ordered: ED Orders 09/17/22 19:49 XR knee RT 3V Stat Vital Signs Vital signs: Vital Signs - 8 hr 09/17/22 21:41 Temperature 97.3 F L Pulse Rate 60 Respiratory Rate 16 Blood Pressure 136/84 Pulse Oximetry 98 Oxygen Delivery Method Room Air MDM - Extremity Injury (Lower) Imaging Data Extremity x-ray #1: Radiologist's Impression: PROCEDURE:? XR KNEE RT 3V ? INDICATIONS:? atraumatic knee pain ? TECHNIQUE:? 3 views of the knee were acquired.? ? COMPARISON:? [facility] [place], CARMEN, XR KNEE 3 VIEWS BILATERAL, 04/04/2017, 14:09.? [facility] CARMEN [place], XR KNEE ARTHRITIC SERIES BI, 11/17/2021, 13:27. ? FINDINGS:? ? Bones:? Right knee arthroplasty hardware is seen, without findings of failure or loosening. ? A large portion of the fibula is absent, as previously demonstrated. ? Negative for acute fracture. ? Soft tissues:? There is a mild joint effusion.? No suspicious soft tissue calcifications. ? ? ? IMPRESSION:? Unremarkable right knee arthroplasty hardware. ? Mild joint effusion. ? 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 ? MDM Narrative Medical decision making narrative: Neurovascularly intact. X-ray shows no acute injuries. Low suspicion for gout or infection or septic joint. I do suspect musculoskeletal. I did discuss this with her. Will discharge home with instructions for conservative measures. She was given return precautions and follow-up instructions. She expressed understanding and agreement. Discharge Plan Departure Patient Disposition: Home Clinical Impression: Injury of knee, right, Hamstring strain Instructions: How To Perform RICE (Rest, Ice, Compress, Elevate) Activity Restrictions/Additional Instructions: Your x-ray today shows that the prosthesis is in place. I do recommend that you try to keep your leg elevated and use ice. You can walk as tolerated. You can take Tylenol or ibuprofen for any discomfort. Be sure that you are taking ibuprofen with food. Contact your primary doctor for follow-up. Return to the emergency department for new or worsening symptoms. Prescriptions: No Action vitamin B complex [B Complex-Vitamin B12] tablet 1 tab PO DAILY fluticasone propionate 110 mcg/actuation HFA aerosol inhaler 1 inh INHALATION BID PRN (Reason: Adequate Ventilation) pregabalin [Lyrica] 100 mg capsule 100 mg PO TID Qty: 90 0RF omeprazole 20 mg capsule,delayed release(DR/EC) 20 mg PO BID methocarbamol 500 mg tablet 500 mg PO QID PRN (Reason: muscle pain) lamotrigine 100 mg tablet 300 mg PO DAILY Qty: 270 3RF lithium carbonate 300 mg capsule 300 mg PO BEDTIME Qty: 90 3RF Rx Instructions: Always take with food quetiapine 25 mg tablet See Rx Instructions PO .COMPLEX Qty: 90 3RF Rx Instructions: Take 25-50 mg (1-2 tabs) PO QHS for sleep. atorvastatin [Lipitor] 40 MG tablet 40 mg PO HS Qty: 0 fexofenadine 180 mg tablet 180 mg PO QDAY Patient Comments: for allergies aspirin 81 mg tablet,delayed release (DR/EC) 81 mg PO QHS levothyroxine 50 mcg tablet 50 mcg PO QDAY ferrous sulfate 325 mg (65 mg iron) Tablet 325 mg PO QDAY multivitamin Tablet 1 tab PO DAILY cholecalciferol (vitamin D3) [Vitamin D3] 1,000 unit capsule 2,000 unit PO DAILY metformin 500 mg tablet 500 mg PO BID methylprednisolone [Medrol ([place])] 4 mg tablets,dose pack See Rx Instructions .ROUTE .COMPLEX Qty: 21 0RF Rx Instructions: orally per package directions guaifenesin [Mucinex] 600 mg tablet extended release 12hr 600 mg PO BID PRN (Reason: productive cough) Qty: 14 0RF cetirizine 10 mg tablet 10 mg PO DAILY PRN (Reason: allergy symptoms) Qty: 14 0RF benzonatate 100 mg capsule 100 mg PO BID PRN (Reason: cough) Qty: 20 0RF lisinopril 5 mg Tablet 5 mg PO DAILY Referrals: Sara Lindsey PA-C [Primary Care Provider] - Stand Alone Forms: Patient Portal/API
[2022-09-17 21:41] VITALS: BP 136/84; PULSE 60; RESP 16; TEMP 36.3; O2SAT 98
== END 2022-09-17 21:42 | disposition home or self-care (01) ==
PROVIDERS: Emergency Provider Emergency Medicine; PCP Physician Assistant
DX: S76.311A Strain of muscle, fascia and tendon of the posterior muscle group at thigh level, right thigh, initial encounter (principal); R29.6 Repeated falls; Z79.899 Other long term (current) drug therapy
CPT/HCPCS: 73562; 99281; 99283

== ENCOUNTER → 2022-10-18 12:20 | Outpatient (CLI) | payer MEDICARE, OTHER, SELFPAY ==
--- NOTE | 2022-10-18 12:21 | DI.RAD.S_ITS ---
PROCEDURE: FL BARIUM SWALLOW W SPEECH INDICATIONS: Dysphagia, unspecified COMPARISON: TECHNIQUE: Examination was conducted in conjunction with speech pathology per standard protocol. In the lateral projection, filming was performed of the patient swallowing. AP projection filming may also be performed with patient swallowing. COMPARISON: None. FINDINGS: Function: The oral preparatory phase appears normal, with proper containment. The subsequent oral propulsive phase, pharyngeal phase, and esophageal phase of swallowing also appear normal with all proffered substances. No laryngotracheal penetration or aspiration. No pathologic vallecular pooling. Morphology: No cricopharyngeal bar is identified. No cervical esophageal webs. No Zenker's diverticulum. No strictures. Patulous esophagus with mild esophageal dysmotility. A caliber barium tablets given and went through the esophagus without difficulty. IMPRESSION: No laryngeal penetration or aspiration. Please see separate speech pathologist's report. Dictated by: Ren Mahoney M.D. on 10/18/2022 at 15:17 Approved by: Ren Mahoney M.D. on 10/18/2022 at 15:19
--- NOTE | 2022-10-18 17:07 | ST.SWALLOW ---
Visit Care Team Role Provider Type Sara Lindsey PA-C Primary Care Provider Advanced [employer] Of Housekeeping Specialty: Medical Address: [address] [place] [address], [id number] Email: Martin Ordaz PA-C Attending Provider Advanced [employer] Housekeeping Referring Provider Specialty: Ear, Nose, Throat Address: [address] [place] [address], [id number] Fax: Email: Modified Barium Swallow Study PACKAGING DESIGNER Clinical Instructor Line Start: 10/18/22 15:47 Freq: Status: Active Protocol: Document 10/18/22 15:47 BE (Rec: 10/18/22 16:49 BE [id number]) Clinical Instructor Signature Clinical Instructor Clinical Instructor Yes: Velia CAPUTO Modified Barium Swallow Study Start: 10/18/22 15:47 Freq: Status: Active Protocol: Document 10/18/22 15:47 BE (Rec: 10/18/22 16:49 BE [id number]) Modified Barium Swallow Study Total Time Visit Start Time 13:30 Visit Stop Time 14:00 Total Visit Minutes 30 Referral Referring Physician James [place] Reason for Referral Dysphagia unspecified Setting Setting Outpatient Care Patient Information Identification Type Name Patient History Pt is a 71-year-old female with PMH of asthma and gastroesophageal reflux. Pt reported dysphagia type symptoms over the past 2 months, exacerbated when attempting to swallow secretions while laying down. She reported symptoms feeling like she is unable to swallow . Pt stated that she occasionally experiences difficulty swallowing while upright as well. Pt has been seen by ballet soloist several years ago and had an upper endoscopy completed. She currently takes omeprazole twice daily for gastroesophageal reflux, which she reported not noticing overt signs of as of late thanks to medicinal interference. Pt is currently using Nasocort to help with chronic nasal drainage. Referral from doctor also notes that pt reported occasional pain with swallowing, and that reported noticing a difference in pt's voice lately. Subjective Observations Pt arrived on time to the imaging room, ambulating with use of a walker. She agreed to participate in MBSS. Patient Positioning Position View Lat-A/P Imaging Lateral View Textures Administered Trials Presented Thin Liquid via Spoon (IDDSI 0 ),Thin Liquid via Cup (IDDSI 0 ),Extremely Thick Liquid via Spoon (IDDSI 4) Barium Tablet Yes The IDDSI Framework Protocol: IDDSI.1 Oral Impairment Source: The Modified Barium Swallow Impairment Profile (MBSImP??) Lip Closure No labial escape Tongue Control During Bolus Hold Escape to lateral buccal cavity/floor of mouth (FOM) Bolus Preparation/Mastication Disorganized chewing/mashing with solid pieces of bolus unchewed Bolus Transport/Lingual Motion Repetitive/disorganized tongue motion Oral Residue Residue collection on oral structures Location Palate Initiation of Pharyngeal Swallow Bolus head at pyriforms Additional Oral Impairment Observations OME: Pt's OME was WNL, with excellent strength/ coordination/ROM. DKS not performed, pt presented with clear speech- no concerns at this time. ORAL PHASE: Majority of trials presented indicated no difficulty with swallow musculature during oral phase swallow. Pt demonstrated an aversion to barium texture/taste, resulting in behaviors that negatively impacted performance. Above scoring indicates the most severe scores, seen during pudding and sequential swallow tasks. Overall, pt demonstrated coordination, ROM and strength of lips, tongue, and jaw to be WNL. Pt exhibited tongue pumping during pudding trial, while verbally stating that she could not swallow. Pt successfully swallowed pudding with two attempts, difficulty likely due to aversion. Pt used alternate but accepted tongue positioning to hold bolus known as dipping, where food/liquid is held at the front and bottom of mouth rather than middle and high in mouth. Pharyngeal Impairment Source: The Modified Barium Swallow Impairment Profile (MBSImP??) Soft Palate Elevation No bolus between soft palate & pharyngeal wall Laryngeal Elevation Part.sup.move.thyroid cart/ part.approx.arytenoids to epiglot.petiole Anterior Hyoid Excursion Complete anterior movement Epiglottic Movement Complete inversion Laryngeal Vestibular Closure Incomplete; narrow column air/ contrast in laryngeal vestibule Pharyngeal Stripping Wave Present - complete Pharyngoesophageal Segment Opening Partial distention/partial duration; partial obstruction of flow Tongue Base Retraction Trace column of contrast/air betwn tongue base & post. pharyngeal wall Pharyngeal Residue Trace residue within/on pharyngeal structures Location Pyriform sinuses Additional Pharyngeal Impairment Pt experienced flash Observations penetration on first trial; a common occurence while pts regulate to taste/texture of barium. No other moments of penetration noted accross trials. Pharyngeal structures functioned WNL. Residue noted on pharyngeal structures following pudding trial- not of concern. Some limiting of PES opening noted during regular solid trial, which resulted from esophageal retention noted during final trial. A/P View The IDDSI Framework Protocol: IDDSI.1 A/P View Observations Esophageal Clearance Upright Position Minimal to no esophageal clearance Esophageal Function Slowed Clearing,Poor Motility Additional A-P Observations Eophageal retention through PES noted during A/P trial. Cleared the esophagus in a timely manner with multiple liquid washes. Tablet administered in A/P view, which cleared esophagus with 2 swallows of thin liquid. Clinical Impressions Dysphagia Type Esophageal Findings Pt presented with strong aversion to barium flavor/ texture, which negatively impacted performance during testing. Behavioral ( shuddering, squirming, facial grimaces) and verbal protestations (I can't swallow this) noted. Above scores indicate most severe performance, however overall swallow was WNL. Hesitancy noted during oral phase swallow, resulting in tongue pumping and delayed initiation of tongue movement during solid trials. Pharyngeal phase WNL. High levels of esophageal retention noted during A/P trial, with backup into PES. Recommend referred to ballet soloist. Pt demonstrated secondary behaviors (pushing head forward and down) during swallows, and required cueing to sit straight. Patient Appropriate for Therapy No: Refer to ballet soloist Recommendations Diet Liquids Order Thin (IDDSI 0) Diet Order Regular (IDDSI 7) Medication Recommendation As Tolerated Aspiration Precautions Recommended Precautions Upright at 90 Degrees, Alternate Liquids/Solids,Small Bites/Sips Additional Precautions Remain upright for 30 m following food/liquid intake. Treatment Plan Recommended Referrals GI Consult Additional Strategies Recommended Avoid eating 30 minutes before bed
== END ==
PROVIDERS: PCP Physician Assistant; Referring Provider Physician Assistant; Visit Provider Physician Assistant
DX: R13.19 Other dysphagia (principal)
CPT/HCPCS: 74230; 92611

== ENCOUNTER → 2022-11-24 14:34 | Outpatient (CLI) | payer MEDICARE, OTHER, SELFPAY ==
--- NOTE | 2022-11-24 14:36 | DI.MG.S_ITS ---
BILATERAL DIGITAL SCREENING MAMMOGRAM 3D/2D WITH CAD: 11/24/2022 CLINICAL: Routine screening. Comparison is made to exams dated: 08/17/2021 mammogram, 06/27/2018 mammogram, 12/20/2016 mammogram - [facility], and 01/20/2015 mammogram - [facility]. Both breasts are almost entirely fatty (category a/<25% glandular tissue). Current study was also evaluated with a Computer Aided Detection (CAD) system. There are benign post operative findings in the left breast. No significant masses, calcifications, or other findings are seen in either breast. There has been no significant interval change. IMPRESSION: BENIGN There is no mammographic evidence of malignancy. A 1 year screening mammogram is recommended. Based on the Tyrer Cuzick model (a risk assessment model) the patient's lifetime risk is 3.1% and her 10 year risk is 2.3%. According to the ACR, ACS, and NCCN guidelines, an annual breast MRI exam along with mammogram is recommended if the patient's lifetime risk is 20% or greater. This exam was interpreted at Station ID: [id number]. NOTE: For mammograms, a report in lay terms will be sent to the patient. Approximately 15% of breast malignancies will not be visualized mammographically. In the management of a palpable breast mass, a negative mammogram must not discourage biopsy of a clinically suspicious lesion. Electronically Signed By: Jf gonzalez/liborio:11/24/2022 18:27:44 letter sent: Normal Exam ACR BI-RADS Category 2: Benign Finding(s) 3342F
== END ==
PROVIDERS: PCP Physician Assistant; Referring Provider Physician Assistant; Visit Provider Physician Assistant
DX: Z12.31 Encounter for screening mammogram for malignant neoplasm of breast (principal)
CPT/HCPCS: 77063; 77067

== ENCOUNTER → 2022-12-08 15:49 | Outpatient (CLI) | payer MEDICARE, OTHER, SELFPAY ==
--- NOTE | 2022-12-08 15:51 | DI.MRI.S_ITS ---
PROCEDURE: MR HEAD/BRAIN WO/W CON INDICATIONS: Persistent migraine aura TECHNIQUE: Noncontrast axial T1 spin echo, axial T2 fast spin echo, sagittal and axial FLAIR, coronal T2 fast spin echo, axial gradient echo, axial diffusion and ADC through the brain. After the administration of contrast, axial and coronal and sagittal T1 spin echo with fat saturation through the brain. COMPARISON: [facility], MR, MR HEAD/BRAIN WO/W CON, 07/23/2021, 15:26. FINDINGS: Image quality: Diagnostic. CSF spaces: Basal cisterns are patent. No extra-axial fluid collections. Ventricles are normal in size and shape. Brain: No midline shift. No intracranial bleeds or masses. No abnormal intracranial enhancement. There is cerebral volume loss for age. There is periventricular white matter chronic small vessel ischemic change. The brainstem appears normal. Diffusion-weighted images demonstrate no acute ischemic insults. No chronic ischemic insults. Normal intravascular flow voids are present. Skull and face: Calvarial marrow is normal in signal. Orbits appear normal. Sinuses: There is a mucous retention cyst seen within the left maxillary sinus. Sinuses and mastoids appear relatively clear. IMPRESSION: Brain MRI within normal limits for age, without cause of the patient's presenting symptoms identified. No masses or abnormal enhancement can be seen. Dictated by: Lukasz Ayon M.D. on 12/08/2022 at 16:39 Approved by: Lukasz Ayon M.D. on 12/08/2022 at 16:40
== END ==
PROVIDERS: PCP Physician Assistant; Referring Provider Physician Assistant; Visit Provider Physician Assistant
DX: G43.609 Persistent migraine aura with cerebral infarction, not intractable, without status migrainosus (principal)
CPT/HCPCS: 70553

== ENCOUNTER → 2023-03-24 12:02 | Outpatient (CLI) | payer MEDICARE, OTHER, SELFPAY ==
[2023-03-24 13:26] LABS: Lithium 0.4 mmol/L (0.6-1.2)
[2023-03-24 13:34] LABS: Alanine Aminotransferase 13 IU/L (<35); Albumin 4.2 g/dL (3.5-5.0); Albumin Globulin Ratio 1.6 (1.0-2.8); Alkaline Phosphatase 62 U/L (38-126); Aspartate Aminotransferase 18 IU/L (14-36); BUN Creatinine Ratio 15.7 (6-22); Bilirubin Total 0.5 mg/dL (0.2-1.3); Blood Urea Nitrogen 8 mg/dL (7-17); Calcium 9.8 mg/dL (8.4-10.2); Carbon Dioxide 27 mmol/L (22-32); Chloride 101 mmol/L (98-107); Estimated Glomerular Filt Rate > 60 mL/min (>60); Globulin 2.6 g/dL (1.7-4.1); Glucose 109 mg/dL (80-110); HEMOLYSIS < 15 (0-50); Potassium 4.4 mmol/L (3.4-5.1); Sodium 134 mmol/L (137-145); Total Protein 6.8 g/dL (6.3-8.2)
[2023-03-28 11:29] LABS: Lamotrigine Lamictal 4.6 ug/mL (2.0-20.0)
== END ==
PROVIDERS: Psychiatry & Neurology Psychiatry; PCP Physician Assistant; Referring Provider Internal Medicine Pulmonary Disease; Visit Provider Internal Medicine Pulmonary Disease
DX: R06.09 Other forms of dyspnea (principal); F31.30 Bipolar disorder, current episode depressed, mild or moderate severity, unspecified; Z79.899 Other long term (current) drug therapy; Z87.891 Personal history of nicotine dependence
CPT/HCPCS: 36415; 80053; 80175; 80178; 94060; 94618; 94726; 94729

== ENCOUNTER 2023-04-21 18:29 | Emergency (ER) | payer MEDICARE, OTHER, SELFPAY ==
[2023-04-21 18:37] VITALS: BP 127/74; PULSE 55; RESP 20; TEMP 36.3; O2SAT 95; BMI 34.7
[2023-04-21 19:12] LABS: Appearance Urine UA CLOUDY; Bilirubin Urine UA NEGATIVE (NEGATIVE); Color Urine UA RED; Glucose Urine UA NEGATIVE (Negative); Ketones Urine UA NEGATIVE (NEGATIVE); Leukocyte Esterase Urine UA 1+ (NEGATIVE); Nitrite Urine UA NEGATIVE (Negative); Occult Blood Urine UA 3+ (Negative); Protein Urine UA 2+ (Negative)
--- NOTE | 2023-04-21 19:25 | ED_ITS ---
HPI - General Adult General Chief complaint: Urogenital-Female Stated complaint: UTI/ blood in urine Time Seen by Provider: 04/21/23 19:18 Source: patient Mode of arrival: Ambulatory History of Present Illness HPI narrative: 72-year-old female. She is a diabetic. Yesterday and then especially today she started to have urinary frequency and hesitancy. No fevers. She did have some blood in her urine today. No abdominal pain. No back pain. No vaginal bleeding. No change in bowel habits. Related Data Home Medications Medication Instructions Recorded Confirmed atorvastatin 40 mg tablet (Lipitor) 40 mg PO HS ##0 08/03/17 02/14/23 aspirin 81 mg tablet,delayed 81 mg PO QHS 09/29/17 02/14/23 release fexofenadine 180 mg tablet 180 mg PO QDAY 09/29/17 02/14/23 levothyroxine 50 mcg tablet 50 mcg PO QDAY 09/29/17 02/14/23 cholecalciferol (vitamin D3) 25 2,000 unit PO DAILY 01/29/19 02/14/23 mcg (1,000 unit) capsule (Vitamin D3) omeprazole 20 mg capsule,delayed 20 mg PO BID 02/25/19 02/14/23 release fluticasone propionate 110 1 inh inhalation BID PRN Adequate 01/04/21 02/14/23 mcg/actuation HFA aerosol inhaler Ventilation methocarbamol 500 mg tablet 500 mg PO QID PRN muscle pain 01/29/21 02/14/23 metformin 500 mg tablet 500 mg PO BID 09/22/21 02/14/23 diltiazem HCl 240 mg capsule,24 240 mg PO DAILY 02/14/23 02/14/23 hr,extended release triamcinolone acetonide 55 mcg 1 spray intranasal DAILY 02/14/23 02/14/23 nasal spray aerosol (Nasacort) Previous Rx's Medication Instructions Recorded pregabalin 100 mg capsule (Lyrica) 100 mg PO TID #90 caps 05/19/20 benzonatate 100 mg capsule 100 mg PO BID PRN cough #20 caps 06/23/22 quetiapine 25 mg tablet 25 mg PO BEDTIME #90 tabs 10/04/22 lamotrigine 100 mg tablet 300 mg (3 x 100 mg) PO DAILY #270 01/18/23 tabs lithium carbonate 300 mg capsule 300 mg PO BEDTIME #90 caps 02/09/23 cephalexin 500 mg capsule 500 mg PO BID 7 days #14 caps 04/21/23 fluconazole 100 mg tablet 100 mg PO DAILY #1 tab 04/21/23 (Diflucan) Allergies Allergy/AdvReac Type Severity Reaction Status Date / Time hydrocodone [From VICODIN] Allergy Severe Anaphylaxis Verified 02/14/23 13:58 nitrofurantoin Allergy Severe SEVERE Verified 02/14/23 13:58 [From MACROBID] HEADACHES adhesive tape Allergy Intermediate Blister Verified 02/14/23 13:58 iodine Allergy Intermediate hand Verified 02/14/23 13:58 swelling zolpidem [ZOLPIDEM] Allergy Unknown sleep Verified 02/14/23 13:58 walking/cooking indomethacin Allergy Dizziness Verified 02/14/23 13:58 oxycodone Allergy Rash Verified 02/14/23 13:58 magnesium citrate AdvReac Severe Palpitation Verified 02/14/23 13:58 s codeine [CODEINE] AdvReac Unknown itching Verified 02/14/23 13:58 amoxicillin AdvReac Verified 02/14/23 13:58 Iodine and Iodide Containing AdvReac started Verified 02/14/23 13:58 Produc swelling, doctor said to enter as allergy tramadol AdvReac vertigo Verified 02/14/23 13:58 vaginal creams AdvReac Unknown Uncoded 02/14/23 13:58 Review of Systems Constitutional Constitutional: Reports system reviewed and no additional complaints, except as documented Gastrointestinal Gastrointestinal: Reports system reviewed and no additional complaints, except as documented Genitourinary Genitourinary: Reports system reviewed and no additional complaints, except as documented Integumentary/Breasts Skin/Breast: Reports system reviewed and no additional complaints, except as documented Neurologic Neurologic: Reports system reviewed and no additional complaints, except as documented Patient History Medical History Cervicogenic headache HNP (herniated nucleus pulposus), cervical PTSD (post-traumatic stress disorder) Bipolar 1 disorder Asthma Hypothyroidism Hyperlipidemia HTN (hypertension) Non-insulin dependent diabetes mellitus Surgical History H/O laminectomy H/O total hysterectomy History of appendectomy History of bilateral knee replacement History of surgical removal of ganglion cyst History of tonsillectomy and adenoidectomy Hx of cholecystectomy Hx of gastric bypass S/P trigger finger release Status post surgery Social History marital status: household members: spouse education level: vocational occupational status: disabled and other 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 Smoking Status: Former smoker alcohol intake: never substance use type: does not use Type(s) of exercise: none and walking frequency: 1-2 times per week duration: 30-45 minutes/day Smoking Status: Former smoker alcohol intake frequency: 0-2 drinks per day Substance Use Type: does not use Exam Initial Vital Signs Initial Vital Signs: Vital Signs Temperature 97.3 F L 04/21/23 18:37 Pulse Rate 55 L 04/21/23 18:37 Respiratory Rate 20 04/21/23 18:37 Blood Pressure 127/74 04/21/23 18:37 Pulse Oximetry 95 04/21/23 18:37 Oxygen Delivery Method Room Air 04/21/23 18:37 Const General: cooperative, comfortable and No ill appearing HENCO Head: normal to inspection and normocephalic Resp Effort & Inspection: normal respiratory effort Cardio Rate: regular rate GI Inspection: non-distended Back/Spine/Pelvis Back: No CVA tenderness Neuro General: patient alert and patient awake Course Orders Ordered: ED Orders 04/21/23 18:43 Complete Blood Count AUTO DIFF Stat Comprehensive Metabolic Panel Stat Lipase Stat 04/21/23 18:52 Urinalysis and Microscopic Stat 04/21/23 18:53 Urinalysis and Microscopic Stat Urine Culture Stat Discontinued Medications Cephalexin HCl (Cephalexin 250 Mg Capsule) 500 mg PO NOW ONE Stop: 04/21/23 19:42 Last Admin: 04/21/23 19:48 Dose: 500 mg Documented By: ISABELLA Fluconazole (Fluconazole 100 Mg Tablet) 100 mg PO NOW ONE Stop: 04/21/23 19:42 Last Admin: 04/21/23 19:49 Dose: 100 mg Documented By: ISABELLA Ondansetron HCl (Ondansetron 4 Mg Odt) 4 mg PO NOW PRN PRN Reason: Nausea And Vomiting Ondansetron HCl (Ondansetron 4 Mg/2 Ml Inj) 4 mg IV NOW PRN PRN Reason: Nausea And Vomiting Vital Signs Vital signs: Vital Signs - 8 hr 04/21/23 18:37 Temperature 97.3 F L Pulse Rate 55 L Respiratory Rate 20 Blood Pressure 127/74 Pulse Oximetry 95 Oxygen Delivery Method Room Air Medical Decision Making Medical Records Medical records reviewed: Yes I reviewed the patient's medical records. Lab Data Lab results reviewed: Yes I reviewed the patient's lab results. Labs: Lab Results 04/21/23 Range/Units 18:53 Urine Color Red Urine Appearance Cloudy Urine pH 7.0 (4.5-8.0) Ur Specific Agency 1.010 (1.000-1.035) Urine Protein 2+ H (Negative) Urine Glucose (UA) Negative (Negative) g/dL Urine Ketones Negative (NEGATIVE) Urine Occult Blood 3+ H (Negative) Urine Nitrate Negative (Negative) Urine Bilirubin Negative (NEGATIVE) Urine Urobilinogen 1.0 (0.2) E.U./dL Ur Leukocyte Esterase 1+ H (NEGATIVE) Urine RBC >100/hpf H (0-5/HPF) Urine WBC 30-100/hpf H (0-5/HPF) Ur Squamous Epith Cells 1-5 /hpf (0-5/HPF) Urine Bacteria Few (2-10) H (None) Hyaline Casts 0-1/lpf (None) Ur Culture Indicated? Specimen cultured Micro UA Comment MDM Narrative Medical decision making narrative: History and physical urinalysis today is consistent with a urinary tract infection. Low suspicion for pyelo. Is tolerating oral intake. Has a relatively benign abdominal exam. She has had urinary tract infection in the past. Several years ago. Based on her allergies she was given a dose of antibiotics here in the ER and also a dose of Diflucan. A prescription for the remainder of the course of the antibiotics was sent to the pharmacy of her choice. Diflucan was because the patient gets yeast infections when taking antibiotics. No indication for admission to the hospital. There was a urine culture pending at the time of her discharge and we will contact her if we need to change antibiotics based on this. She was given return precautions. She expressed understanding and agreement with plan. Discharge Plan Departure Patient Disposition: Home Clinical Impression: Urinary tract infection Instructions: DI for Urinary Tract Infection (UTI) Activity Restrictions/Additional Instructions: I do recommend that you take the antibiotics as directed. Save the final dose of Diflucan/fluconazole for when you are finished with a course of antibiotics. A urine culture was pending at the time of your discharge and we will contact you if we need to change antibiotics based on this. Return to the emergency dep artment for new or worsening symptoms. Prescriptions: New cephalexin 500 mg capsule 500 mg PO BID 7 Days Qty: 14 0RF fluconazole [Diflucan] 100 mg tablet 100 mg PO DAILY Qty: 1 0RF Rx Instructions: take at end of antibiotic treatment No Action fluticasone propionate 110 mcg/actuation HFA aerosol inhaler 1 inh INHALATION BID PRN (Reason: Adequate Ventilation) pregabalin [Lyrica] 100 mg capsule 100 mg PO TID Qty: 90 0RF triamcinolone acetonide [Nasacort] 55 mcg aerosol,spray 1 spray intranasal DAILY Rx Instructions: administer into each nostril diltiazem HCl 240 mg capsule,extended release 24 hr 240 mg PO DAILY lithium carbonate 300 mg capsule 300 mg PO BEDTIME Qty: 90 1RF Rx Instructions: Always take with food omeprazole 20 mg capsule,delayed release(DR/EC) 20 mg PO BID methocarbamol 500 mg tablet 500 mg PO QID PRN (Reason: muscle pain) quetiapine 25 mg tablet 25 mg PO BEDTIME Qty: 90 3RF atorvastatin [Lipitor] 40 MG tablet 40 mg PO HS Qty: 0 lamotrigine 100 mg tablet 300 mg PO DAILY Qty: 270 3RF fexofenadine 180 mg tablet 180 mg PO QDAY Patient Comments: for allergies aspirin 81 mg tablet,delayed release (DR/EC) 81 mg PO QHS levothyroxine 50 mcg tablet 50 mcg PO QDAY cholecalciferol (vitamin D3) [Vitamin D3] 1,000 unit capsule 2,000 unit PO DAILY metformin 500 mg tablet 500 mg PO BID benzonatate 100 mg capsule 100 mg PO BID PRN (Reason: cough) Qty: 20 0RF Referrals: Sara Lindsey PA-C [Primary Care Provider] - Stand Alone Forms: Patient Portal/API
[2023-04-21 19:29] LABS: Bacteria Urine Few (2-10); Hyaline Casts Urine 0-1/LPF; RBC Urine >100/HPF (0-5/HPF); Squamous Epithelial Cell Urine 1-5 /HPF (0-5/HPF); WBC Urine 30-100/HPF (0-5/HPF)
[2023-04-21 19:30] LABS: Culture Indicated Urine Specimen Cultured
[2023-04-21] MEDS: cephALEXin 250 MG CAPSULE 500 MG PO (19:48)
[2023-04-21] MEDS: FLUCONAZOLE 100 MG TABLET PO (19:49)
== END 2023-04-21 19:54 | disposition home or self-care (01) ==
PROVIDERS: Emergency Provider Emergency Medicine; PCP Physician Assistant
DX: N39.0 Urinary tract infection, site not specified (principal)
CPT/HCPCS: 81001; 87086; 99283

== ENCOUNTER 2023-07-11 23:18 | Emergency (ER) | payer MEDICARE, OTHER, SELFPAY ==
[2023-07-11 23:34] VITALS: BP 138/63; PULSE 60; RESP 16; TEMP 36.6; O2SAT 98; BMI 36.6
--- NOTE | 2023-07-12 00:05 | DI.RAD.S_ITS ---
PROCEDURE: XR CHEST 1V INDICATIONS: URI/COUGH TECHNIQUE: One view of the chest was acquired. COMPARISON: [facility], CR, XR CHEST 2V, 06/23/2022, 18:59. FINDINGS: Surgical changes and devices: None. Lungs and pleura: Lungs are clear. No pleural effusions or pneumothorax. Mediastinum: Mediastinal contours appear normal. Heart size is normal. Bones and chest wall: No suspicious bony lesions. Overlying soft tissues appear unremarkable. IMPRESSION: No acute cardiopulmonary abnormality is seen. Dictated by: Gayle Alcaraz M.D. on 07/12/2023 at 1:40 Approved by: Gayle Alcaraz M.D. on 07/12/2023 at 1:40
--- NOTE | 2023-07-12 00:10 | ED_ITS ---
HPI - URI/Sore Throat General Chief Complaint: Upper Respiratory Symptoms Stated Complaint: cough, chest hurts from coughing Time Seen by Provider: 07/11/23 23:24 Source: patient Mode of arrival: Family Vehicle History of Present Illness HPI Narrative: 72-year-old female presents by private vehicle from home for 2-3 days of cough. She states that cough is very forceful, sometimes productive of white phlegm but sometimes it feels stuck in her chest. The cough causes the front of her chest to feel sore and tight. Denies fevers, chills, nausea, vomiting, other complaints at this time. Related Data Home Medications Medication Instructions Recorded Confirmed atorvastatin 40 mg tablet (Lipitor) 40 mg PO HS ##0 08/03/17 02/14/23 aspirin 81 mg tablet,delayed 81 mg PO QHS 09/29/17 02/14/23 release fexofenadine 180 mg tablet 180 mg PO QDAY 09/29/17 02/14/23 levothyroxine 50 mcg tablet 50 mcg PO QDAY 09/29/17 02/14/23 cholecalciferol (vitamin D3) 25 2,000 unit PO DAILY 01/29/19 02/14/23 mcg (1,000 unit) capsule (Vitamin D3) omeprazole 20 mg capsule,delayed 20 mg PO BID 02/25/19 02/14/23 release fluticasone propionate 110 1 inh inhalation BID PRN Adequate 01/04/21 02/14/23 mcg/actuation HFA aerosol inhaler Ventilation methocarbamol 500 mg tablet 500 mg PO QID PRN muscle pain 01/29/21 02/14/23 metformin 500 mg tablet 500 mg PO BID 09/22/21 02/14/23 diltiazem HCl 240 mg capsule,24 240 mg PO DAILY 02/14/23 02/14/23 hr,extended release triamcinolone acetonide 55 mcg 1 spray intranasal DAILY 02/14/23 02/14/23 nasal spray aerosol (Nasacort) Previous Rx's Medication Instructions Recorded pregabalin 100 mg capsule (Lyrica) 100 mg PO TID #90 caps 05/19/20 benzonatate 100 mg capsule 100 mg PO BID PRN cough #20 caps 06/23/22 quetiapine 25 mg tablet 25 mg PO BEDTIME #90 tabs 10/04/22 lamotrigine 100 mg tablet 300 mg (3 x 100 mg) PO DAILY #270 01/18/23 tabs fluconazole 100 mg tablet 100 mg PO DAILY #1 tab 04/21/23 (Diflucan) lithium carbonate 300 mg capsule 300 mg PO BEDTIME #90 caps 06/29/23 benzonatate 200 mg capsule 200 mg PO BID-TID PRN cough #30 07/12/23 caps Allergies Allergy/AdvReac Type Severity Reaction Status Date / Time hydrocodone [From VICODIN] Allergy Severe Anaphylaxis Verified 02/14/23 13:58 nitrofurantoin Allergy Severe SEVERE Verified 02/14/23 13:58 [From MACROBID] HEADACHES adhesive tape Allergy Intermediate Blister Verified 02/14/23 13:58 iodine Allergy Intermediate hand Verified 02/14/23 13:58 swelling zolpidem [ZOLPIDEM] Allergy Unknown sleep Verified 02/14/23 13:58 walking/cooking indomethacin Allergy Dizziness Verified 02/14/23 13:58 oxycodone Allergy Rash Verified 02/14/23 13:58 magnesium citrate AdvReac Severe Palpitation Verified 02/14/23 13:58 s codeine [CODEINE] AdvReac Unknown itching Verified 02/14/23 13:58 amoxicillin AdvReac Verified 02/14/23 13:58 Iodine and Iodide Containing AdvReac started Verified 02/14/23 13:58 Produc swelling, doctor said to enter as allergy tramadol AdvReac vertigo Verified 02/14/23 13:58 vaginal creams AdvReac Unknown Uncoded 02/14/23 13:58 Review of Systems Review of Systems Narrative: Negative except as noted above Patient History Medical History Cervicogenic headache HNP (herniated nucleus pulposus), cervical PTSD (post-traumatic stress disorder) Bipolar 1 disorder Asthma Hypothyroidism Hyperlipidemia HTN (hypertension) Non-insulin dependent diabetes mellitus Surgical History H/O laminectomy History of surgical removal of ganglion cyst S/P trigger finger release History of bilateral knee replacement Hx of gastric bypass H/O total hysterectomy Hx of cholecystectomy History of tonsillectomy and adenoidectomy History of appendectomy Status post surgery Social History marital status: household members: spouse education level: vocational occupational status: disabled and other 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 Smoking Status: Former smoker alcohol intake: never substance use type: does not use Type(s) of exercise: none and walking frequency: 1-2 times per week duration: 30-45 minutes/day Smoking Status: Former smoker alcohol intake frequency: 0-2 drinks per day Substance Use Type: does not use Exam Initial Vital Signs Initial Vital Signs: Vital Signs Temperature 97.8 F 07/11/23 23:34 Pulse Rate 60 07/11/23 23:34 Respiratory Rate 16 07/11/23 23:34 Blood Pressure 138/63 07/11/23 23:34 Pulse Oximetry 98 07/11/23 23:34 Oxygen Delivery Method Room Air 07/11/23 23:34 Const: Awake, alert, no acute distress, nontoxic appearing Cardiac: regular rate, regular rhythm RESP: unlabored, clear bilaterally, no wheezing GI: Atraumatic, soft, nontender, nondistended, no rebound, no guarding MSK: Atraumatic, full range of motion, pulses equal Skin: Warm, Dry, intact, no rashes Neuro: AO x3, CN II-XII grossly intact, moves all extremities Course Orders Ordered: ED Orders 07/12/23 00:05 Chest [XR chest 1V] Stat Vital Signs Vital signs: Vital Signs - 8 hr 07/11/23 23:34 07/12/23 01:54 Temperature 97.8 F 97.9 F Pulse Rate 60 60 Respiratory Rate 16 18 Blood Pressure 138/63 165/77 H Pulse Oximetry 98 97 Oxygen Delivery Method Room Air Room Air MDM - URI/Sore Throat Differential Diagnosis Differential diagnosis: Likely upper respiratory infection, influenza and pharyngitis MDM Narrative Medical decision making narrative: Well-appearing patient with to 3 days of nonproductive cough. Lungs are clear to auscultation, saturating well on room air, ambulatory without dyspnea. Vital signs reviewed, unremarkable. Low suspicion for pneumonia, however we will order x-ray imaging of the chest. Patient states her primary concern is the cough and its impact on her chest and causing her difficulty sleeping. Chest x-ray shows no acute abnormalities. On recheck patient is sleeping comfortably in ED bed. She was advised of her chest x-ray results, Obey Porter sent to pharmacy of choice. Also recommended [id number] cough and cold medications for relief as needed. ED return precautions discussed at beds [facility]. Patient expressed understanding of the plan and is in agreement at this time. All questions answered at the time of discharge. Discharge Plan Departure Patient Disposition: Home Clinical Impression: Upper respiratory infection, Cough Instructions: DI for Acute Bronchitis Prescriptions: New benzonatate 200 mg capsule 200 mg PO BID-TID PRN (Reason: cough) Qty: 30 0RF No Action fluticasone propionate 110 mcg/actuation HFA aerosol inhaler 1 inh INHALATION BID PRN (Reason: Adequate Ventilation) pregabalin [Lyrica] 100 mg capsule 100 mg PO TID Qty: 90 0RF triamcinolone acetonide [Nasacort] 55 mcg aerosol,spray 1 spray intranasal DAILY Rx Instructions: administer into each nostril diltiazem HCl 240 mg capsule,extended release 24 hr 240 mg PO DAILY lithium carbonate 300 mg capsule 300 mg PO BEDTIME Qty: 90 1RF Rx Instructions: Always take with food omeprazole 20 mg capsule,delayed release(DR/EC) 20 mg PO BID methocarbamol 500 mg tablet 500 mg PO QID PRN (Reason: muscle pain) quetiapine 25 mg tablet 25 mg PO BEDTIME Qty: 90 3RF atorvastatin [Lipitor] 40 MG tablet 40 mg PO HS Qty: 0 lamotrigine 100 mg tablet 300 mg PO DAILY Qty: 270 3RF fexofenadine 180 mg tablet 180 mg PO QDAY Patient Comments: for allergies aspirin 81 mg tablet,delayed release (DR/EC) 81 mg PO QHS levothyroxine 50 mcg tablet 50 mcg PO QDAY cholecalciferol (vitamin D3) [Vitamin D3] 1,000 unit capsule 2,000 unit PO DAILY metformin 500 mg tablet 500 mg PO BID benzonatate 100 mg capsule 100 mg PO BID PRN (Reason: cough) Qty: 20 0RF fluconazole [Diflucan] 100 mg tablet 100 mg PO DAILY Qty: 1 0RF Rx Instructions: take at end of antibiotic treatment Referrals: Sara Lindsey PA-C [Primary Care Provider] - Stand Alone Forms: Patient Portal/API
[2023-07-12 01:54] VITALS: BP 165/77; PULSE 60; RESP 18; TEMP 36.6; O2SAT 97
== END 2023-07-12 02:04 | disposition home or self-care (01) ==
PROVIDERS: Emergency Provider Emergency Medicine; PCP Physician Assistant
DX: J06.9 Acute upper respiratory infection, unspecified (principal); Z87.891 Personal history of nicotine dependence
CPT/HCPCS: 71045; 99283

== ENCOUNTER → 2023-07-20 14:51 | Outpatient (CLI) | payer MEDICARE, OTHER, SELFPAY ==
[2023-07-20 16:03] LABS: Add Manual Diff / Slide Review NO; Basophils Absolute Auto 0 /uL (0-100); Basophils Percent Auto 0.5 % (0-2); Eosinophils Absolute Auto 100 /uL (0-450); Eosinophils Percent Auto 2.8 % (2-4); Hematocrit 39.4 % (36-46); Hemoglobin 13.2 g/dL (12.0-16.0); Lymphocytes Absolute Auto 1400 /uL (1100-4500); Lymphocytes Percent Auto 27.4 % (25-40); Mean Corpuscular HGB Conc 33.6 % (30-36); Mean Corpuscular Hemoglobin 30.8 PG (26-34); Mean Corpuscular Volume 91.8 fL (80-100); Monocytes Absolute Auto 400 /uL (0-900); Monocytes Percent Auto 7.9 % (3-14); Neutrophils Absolute Auto 3200 /uL (1500-7000); Neutrophils Percent Auto 61.4 % (50-75); Platelet Count 311 X10^3/uL (150-400); Red Blood Cell Count 4.29 X10^6/uL (4.0-5.2); Red Cell Distribution Width 13.8 % (11.6-14.8); White Blood Cell Count 5.1 X10^3/uL (4.5-11.0)
[2023-07-20 16:49] LABS: Lithium 0.5 mmol/L (0.6-1.2)
[2023-07-20 16:57] LABS: Erythrocyte Sedimentation Rate 7 MM/HR (0-20)
[2023-07-20 16:58] LABS: Alanine Aminotransferase 14 IU/L (<35); Albumin 4.3 g/dL (3.5-5.0); Albumin Globulin Ratio 1.6 (1.0-2.8); Alkaline Phosphatase 81 U/L (38-126); Aspartate Aminotransferase 37 IU/L (14-36); BUN Creatinine Ratio 18.5 (6-22); Bilirubin Total 0.6 mg/dL (0.2-1.3); Blood Urea Nitrogen 10 mg/dL (7-17); Calcium 9.5 mg/dL (8.4-10.2); Carbon Dioxide 25 mmol/L (22-32); Chloride 101 mmol/L (98-107); Estimated Glomerular Filt Rate > 60 mL/min (>60); Globulin 2.7 g/dL (1.7-4.1); Glucose 110 mg/dL (80-110); HEMOLYSIS 21 (0-50); Potassium 4.7 mmol/L (3.4-5.1); Sodium 134 mmol/L (137-145); Uric Acid 5.1 mg/dL (2.5-6.2)
[2023-07-20 17:03] LABS: Rheumatoid Factor < 8.6 IU/mL (<12.0)
[2023-07-20 17:24] LABS: Thyroid Stimulating Hormone 1.13 uIU/mL (0.47-4.68)
== END ==
PROVIDERS: Psychiatry & Neurology Psychiatry; PCP Physician Assistant; Referring Provider Ophthalmology; Visit Provider Ophthalmology
DX: Z51.81 Encounter for therapeutic drug level monitoring (principal); M31.6 Other giant cell arteritis; E11.9 Type 2 diabetes mellitus without complications; F31.9 Bipolar disorder, unspecified
CPT/HCPCS: 36415; 80053; 80178; 84443; 84550; 85025; 85651; 86430

== ENCOUNTER 2023-10-27 22:59 | Emergency (ER) | payer MEDICARE, OTHER, SELFPAY ==
[2023-10-27 23:04] VITALS: BP 187/87; PULSE 59; RESP 14; TEMP 37; O2SAT 96; BMI 34.7
--- NOTE | 2023-10-27 23:41 | ED.ALLEREA ---
HPI - Allergic Reaction General Chief complaint: Allergic Reaction Stated complaint: allergies/eyes and face affected Time Seen by Provider: 10/27/23 23:01 Source: patient Mode of arrival: Ambulatory History of Present Illness HPI narrative: 73-year-old female presents by private vehicle from home for possible allergic reaction. Patient states that for the last several days she has had severe itching eyes and nasal congestion. She was tried using [id number] eye allergy drops, Benadryl, and takes a daily Anna tablet, but her symptoms have not improved and she is here today trying to seek relief. Denies vision changes. Related Data Home Medications Medication Instructions Recorded Confirmed atorvastatin 40 mg tablet (Lipitor) 40 mg PO HS ##0 08/03/17 02/14/23 aspirin 81 mg tablet,delayed 81 mg PO QHS 09/29/17 02/14/23 release fexofenadine 180 mg tablet 180 mg PO QDAY 09/29/17 02/14/23 levothyroxine 50 mcg tablet 50 mcg PO QDAY 09/29/17 02/14/23 cholecalciferol (vitamin D3) 25 2,000 unit PO DAILY 01/29/19 02/14/23 mcg (1,000 unit) capsule (Vitamin D3) omeprazole 20 mg capsule,delayed 20 mg PO BID 02/25/19 02/14/23 release fluticasone propionate 110 1 inh inhalation BID PRN Adequate 01/04/21 02/14/23 mcg/actuation HFA aerosol inhaler Ventilation methocarbamol 500 mg tablet 500 mg PO QID PRN muscle pain 01/29/21 02/14/23 metformin 500 mg tablet 500 mg PO BID 09/22/21 02/14/23 diltiazem HCl 240 mg capsule,24 240 mg PO DAILY 02/14/23 02/14/23 hr,extended release triamcinolone acetonide 55 mcg 1 spray intranasal DAILY 02/14/23 02/14/23 nasal spray aerosol (Nasacort) Previous Rx's Medication Instructions Recorded pregabalin 100 mg capsule (Lyrica) 100 mg PO TID #90 caps 05/19/20 benzonatate 100 mg capsule 100 mg PO BID PRN cough #20 caps 06/23/22 quetiapine 25 mg tablet 25 mg PO BEDTIME #90 tabs 10/04/22 lamotrigine 100 mg tablet 300 mg (3 x 100 mg) PO DAILY #270 01/18/23 tabs fluconazole 100 mg tablet 100 mg PO DAILY #1 tab 04/21/23 (Diflucan) lithium carbonate 300 mg capsule 300 mg PO BEDTIME #90 caps 06/29/23 benzonatate 200 mg capsule 200 mg PO BID-TID PRN cough #30 07/12/23 caps prednisone 20 mg tablet 40 mg (2 x 20 mg) PO DAILY #6 tabs 10/28/23 Allergies Allergy/AdvReac Type Severity Reaction Status Date / Time hydrocodone [From VICODIN] Allergy Severe Anaphylaxis Verified 02/14/23 13:58 nitrofurantoin Allergy Severe SEVERE Verified 02/14/23 13:58 [From MACROBID] HEADACHES adhesive tape Allergy Intermediate Blister Verified 02/14/23 13:58 iodine Allergy Intermediate hand Verified 02/14/23 13:58 swelling zolpidem [ZOLPIDEM] Allergy Unknown sleep Verified 02/14/23 13:58 walking/cooking indomethacin Allergy Dizziness Verified 02/14/23 13:58 oxycodone Allergy Rash Verified 02/14/23 13:58 magnesium citrate AdvReac Severe Palpitation Verified 02/14/23 13:58 s codeine [CODEINE] AdvReac Unknown itching Verified 02/14/23 13:58 amoxicillin AdvReac Verified 02/14/23 13:58 Iodine and Iodide Containing AdvReac started Verified 02/14/23 13:58 Produc swelling, doctor said to enter as allergy tramadol AdvReac vertigo Verified 02/14/23 13:58 vaginal creams AdvReac Unknown Uncoded 02/14/23 13:58 Review of Systems Review of Systems Narrative: I did not see this patient. I was available all times for consultation. Patient History Medical History Cervicogenic headache HNP (herniated nucleus pulposus), cervical PTSD (post-traumatic stress disorder) Bipolar 1 disorder Asthma Hypothyroidism Hyperlipidemia HTN (hypertension) Non-insulin dependent diabetes mellitus Surgical History H/O laminectomy History of surgical removal of ganglion cyst S/P trigger finger release History of bilateral knee replacement Hx of gastric bypass H/O total hysterectomy Hx of cholecystectomy History of tonsillectomy and adenoidectomy History of appendectomy Status post surgery Social History marital status: household members: spouse education level: vocational occupational status: disabled and other 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 Smoking Status: Former smoker alcohol intake: never substance use type: does not use Type(s) of exercise: none and walking frequency: 1-2 times per week duration: 30-45 minutes/day Smoking Status: Former smoker alcohol intake frequency: 0-2 drinks per day Substance Use Type: does not use Exam Initial Vital Signs Initial Vital Signs: Vital Signs Temperature 98.6 F 10/27/23 23:04 Pulse Rate 59 L 10/27/23 23:04 Respiratory Rate 14 10/27/23 23:04 Blood Pressure 187/87 H 10/27/23 23:04 Pulse Oximetry 96 10/27/23 23:04 Oxygen Delivery Method Room Air 10/27/23 23:04 Const: Awake, alert, no acute distress HEENT: PERRL, faint conjunctival injection. TM normal bilaterally, pharyx with cobblestoning, mild nasal mucosa erythema Skin: Warm, Dry, mild periorbital irritation Neuro: AO x3, CN II-XII grossly intact, moves all extremities Course Orders Ordered: Discontinued Medications Dexamethasone (Dexamethasone 10 Mg/Ml Vial) 10 mg PO NOW ONE Stop: 10/28/23 00:11 Last Admin: 10/28/23 00:20 Dose: 10 mg Documented By: NAKITA Vital Signs Vital signs: Vital Signs - 8 hr 10/27/23 23:04 10/28/23 00:32 Temperature 98.6 F 97.5 F L Pulse Rate 59 L 64 Respiratory Rate 14 16 Blood Pressure 187/87 H 166/82 H Pulse Oximetry 96 98 Oxygen Delivery Method Room Air Room Air MDM - Allergic Reaction MDM Narrative Medical decision making narrative: Patient presenting with what appears to be moderate bilateral periorbital irritation and conjunctival injection consistent with allergic conjunctivitis. Patient was already on appropriate therapy, she states that her itching is unbearable and she can not sleep due to the severity. She was advised to continue to take a daily anti allergy medication, to continue to use the [id number]-[id number]-[id number] allergy drops she has been using (olopatadine), and to use cold compresses for relief. A very short course of steroids provided to see if this provides some benefit to the patient. Discharge Plan Departure Patient Disposition: Home Clinical Impression: Acute allergic conjunctivitis of both eyes Instructions: DI for Eye Allergic Reaction Activity Restrictions/Additional Instructions: Use topical lubricant such as Systane drops and cool compresses for relief. I recommend continuing a daily anti allergy medication. You may use [id number] medications such as Naphcon-A, Visine, Visine-A, or Opcon-A that can be purchased at a pharmacy. I also recommend using daily Flonase for allergic symptoms. Follow up with your primary care doctor, especially if you continue to experience symptoms. Prescriptions: New prednisone 20 mg tablet 40 mg PO DAILY Qty: 6 0RF No Action fluticasone propionate 110 mcg/actuation HFA aerosol inhaler 1 inh INHALATION BID PRN (Reason: Adequate Ventilation) pregabalin [Lyrica] 100 mg capsule 100 mg PO TID Qty: 90 0RF triamcinolone acetonide [Nasacort] 55 mcg aerosol,spray 1 spray intranasal DAILY Rx Instructions: administer into each nostril diltiazem HCl 240 mg capsule,extended release 24 hr 240 mg PO DAILY lithium carbonate 300 mg capsule 300 mg PO BEDTIME Qty: 90 1RF Rx Instructions: Always take with food omeprazole 20 mg capsule,delayed release(DR/EC) 20 mg PO BID methocarbamol 500 mg tablet 500 mg PO QID PRN (Reason: muscle pain) quetiapine 25 mg tablet 25 mg PO BEDTIME Qty: 90 3RF atorvastatin [Lipitor] 40 MG tablet 40 mg PO HS Qty: 0 lamotrigine 100 mg tablet 300 mg PO DAILY Qty: 270 3RF fexofenadine 180 mg tablet 180 mg PO QDAY Patient Comments: for allergies aspirin 81 mg tablet,delayed release (DR/EC) 81 mg PO QHS levothyroxine 50 mcg tablet 50 mcg PO QDAY cholecalciferol (vitamin D3) [Vitamin D3] 1,000 unit capsule 2,000 unit PO DAILY metformin 500 mg tablet 500 mg PO BID benzonatate 100 mg capsule 100 mg PO BID PRN (Reason: cough) Qty: 20 0RF fluconazole [Diflucan] 100 mg tablet 100 mg PO DAILY Qty: 1 0RF Rx Instructions: take at end of antibiotic treatment benzonatate 200 mg capsule 200 mg PO BID-TID PRN (Reason: cough) Qty: 30 0RF Referrals: Sara Lindsey PA-C [Primary Care Provider] - Stand Alone Forms: Patient Portal/API
[2023-10-28] MEDS: DEXAMETHASONE 10 MG/ML VIAL PO (00:20)
[2023-10-28 00:32] VITALS: BP 166/82; PULSE 64; RESP 16; TEMP 36.4; O2SAT 98
== END 2023-10-28 00:33 | disposition home or self-care (01) ==
PROVIDERS: Emergency Provider Emergency Medicine; PCP Physician Assistant
DX: H10.33 Unspecified acute conjunctivitis, bilateral (principal)
CPT/HCPCS: 99283; J1100

== ENCOUNTER → 2023-11-21 14:40 | Outpatient (CLI) | payer MEDICARE, OTHER, SELFPAY ==
--- NOTE | 2023-11-21 15:40 | DI.MRI.S_ITS ---
PROCEDURE: MR HEAD/BRAIN WO CON INDICATIONS: HEADACHE / ROUTINE SCREENING TECHNIQUE: Non-contrast axial T1 spin echo, axial T2 fast spin echo, sagittal and axial FLAIR, coronal T2 fast spin echo, axial gradient echo, axial diffusion and ADC through the brain. COMPARISON: [facility], MR, MR HEAD/BRAIN WO/W CON, 12/08/2022, 16:14. FINDINGS: Image quality: Excellent. CSF spaces: Ventricles appear symmetric in size and shape. Basal cisterns are patent. No extra-axial fluid collections. Brain: No intracranial bleeds or mass effects. There is cerebral volume loss for age. There are periventricular and deep white matter chronic small vessel ischemic changes. Brainstem appears normal. Diffusion-weighted images show no acute infarct. No chronic ischemic insults. Normal intravascular flow voids are present. Skull and face: Calvarial bone marrow is normal in signal. Bilateral lens replacements. Otherwise, the orbits are unremarkable. Sinuses: Left maxillary sinus mucous retention cyst. The paranasal sinuses are otherwise clear. Small right mastoid fluid. IMPRESSION: No cause for patient's symptoms identified. No acute intracranial abnormalities. Age-appropriate global volume loss and chronic microvascular ischemic changes. Dictated by: Jeffrey Doty M.D. on 11/21/2023 at 17:09 Approved by: Jeffrey Doty M.D. on 11/21/2023 at 17:11
== END ==
LOC: MRI 14:41
PROVIDERS: PCP Physician Assistant; Referring Provider Physician Assistant; Visit Provider Physician Assistant
DX: G43.609 Persistent migraine aura with cerebral infarction, not intractable, without status migrainosus (principal); I63.9 Cerebral infarction, unspecified; R41.3 Other amnesia; R47.89 Other speech disturbances; R26.89 Other abnormalities of gait and mobility
CPT/HCPCS: 70551

== ENCOUNTER 2023-12-13 19:47 | Emergency (ER) | payer MEDICARE, OTHER, SELFPAY ==
[2023-12-13] VITALS (8 sets, daily range): BP systolic 128–141; BP diastolic 60–72; PULSE 53–60; RESP 16–19; TEMP 36.2–36.6; O2SAT 94–98; BMI 34.7
[2023-12-13 20:36] LABS: Bacteria Urine Moderate (10-30); Culture Indicated Urine Cult Not Indicated; Ictotest Urine Negative (Negative); RBC Urine 10-30/HPF (0-5/HPF); Squamous Epithelial Cell Urine 0-1 /HPF (0-5/HPF); Urine Volume Low Vol <1mL unspun; WBC Urine 10-30/HPF (0-5/HPF)
--- NOTE | 2023-12-13 21:48 | ED_ITS ---
HPI - Female Genitourinary General Chief complaint: Urogenital-Female Stated complaint: UTI Time Seen by Provider: 12/13/23 20:39 Source: patient Mode of arrival: Ambulatory History of Present Illness HPI Narrative: 73-year-old female presents for urinary frequency, hematuria, and burning for 2 days. Reports associated upper back pain. Concerned that she may have urinary tract infection. Denies fevers, chills, vomiting. Related Data Home Medications Medication Instructions Recorded Confirmed atorvastatin 40 mg tablet (Lipitor) 40 mg PO HS ##0 08/03/17 02/14/23 aspirin 81 mg tablet,delayed 81 mg PO QHS 09/29/17 02/14/23 release fexofenadine 180 mg tablet 180 mg PO QDAY 09/29/17 02/14/23 levothyroxine 50 mcg tablet 50 mcg PO QDAY 09/29/17 02/14/23 cholecalciferol (vitamin D3) 25 2,000 unit PO DAILY 01/29/19 02/14/23 mcg (1,000 unit) capsule (Vitamin D3) omeprazole 20 mg capsule,delayed 20 mg PO BID 02/25/19 02/14/23 release fluticasone propionate 110 1 inh inhalation BID PRN Adequate 01/04/21 02/14/23 mcg/actuation HFA aerosol inhaler Ventilation methocarbamol 500 mg tablet 500 mg PO QID PRN muscle pain 01/29/21 02/14/23 metformin 500 mg tablet 500 mg PO BID 09/22/21 02/14/23 diltiazem HCl 240 mg capsule,24 240 mg PO DAILY 02/14/23 02/14/23 hr,extended release triamcinolone acetonide 55 mcg 1 spray intranasal DAILY 02/14/23 02/14/23 nasal spray aerosol (Nasacort) Previous Rx's Medication Instructions Recorded pregabalin 100 mg capsule (Lyrica) 100 mg PO TID #90 caps 05/19/20 benzonatate 100 mg capsule 100 mg PO BID PRN cough #20 caps 06/23/22 fluconazole 100 mg tablet 100 mg PO DAILY #1 tab 04/21/23 (Diflucan) benzonatate 200 mg capsule 200 mg PO BID-TID PRN cough #30 07/12/23 caps prednisone 20 mg tablet 40 mg (2 x 20 mg) PO DAILY #6 tabs 10/28/23 lamotrigine 100 mg tablet 300 mg (3 x 100 mg) PO DAILY #270 11/02/23 tabs lithium carbonate 300 mg capsule 300 mg PO BEDTIME #90 caps 11/02/23 quetiapine 25 mg tablet 25 mg PO BEDTIME #90 tabs 11/02/23 cefpodoxime 200 mg tablet 200 mg PO Q12H #20 tabs 12/13/23 Allergies Allergy/AdvReac Type Severity Reaction Status Date / Time hydrocodone [From VICODIN] Allergy Severe Anaphylaxis Verified 02/14/23 13:58 nitrofurantoin Allergy Severe SEVERE Verified 02/14/23 13:58 [From MACROBID] HEADACHES adhesive tape Allergy Intermediate Blister Verified 02/14/23 13:58 iodine Allergy Intermediate hand Verified 02/14/23 13:58 swelling zolpidem [ZOLPIDEM] Allergy Unknown sleep Verified 02/14/23 13:58 walking/cooking indomethacin Allergy Dizziness Verified 02/14/23 13:58 oxycodone Allergy Rash Verified 02/14/23 13:58 magnesium citrate AdvReac Severe Palpitation Verified 02/14/23 13:58 s codeine [CODEINE] AdvReac Unknown itching Verified 02/14/23 13:58 amoxicillin AdvReac Verified 02/14/23 13:58 Iodine and Iodide Containing AdvReac started Verified 02/14/23 13:58 Produc swelling, doctor said to enter as allergy tramadol AdvReac vertigo Verified 02/14/23 13:58 vaginal creams AdvReac Unknown Uncoded 02/14/23 13:58 Patient History Medical History Cervicogenic headache HNP (herniated nucleus pulposus), cervical PTSD (post-traumatic stress disorder) Bipolar 1 disorder Asthma Hypothyroidism Hyperlipidemia HTN (hypertension) Non-insulin dependent diabetes mellitus Surgical History H/O laminectomy History of surgical removal of ganglion cyst S/P trigger finger release History of bilateral knee replacement Hx of gastric bypass H/O total hysterectomy Hx of cholecystectomy History of tonsillectomy and adenoidectomy History of appendectomy Status post surgery alcohol intake frequency: 0-2 drinks per day Substance Use Type: does not use Exam Initial Vital Signs Initial Vital Signs: Vital Signs Temperature 97.1 F L 07/17/24 20:06 Pulse Rate 59 L 12/13/23 20:06 Respiratory Rate 19 12/13/23 20:06 Blood Pressure 137/72 12/13/23 20:06 Pulse Oximetry 96 12/13/23 20:06 Oxygen Delivery Method Room Air 12/13/23 20:06 Const: Awake, alert, no acute distress Cardiac: regular rate, regular rhythm RESP: unlabored, clear bilaterally, no wheezing GI: Soft, nontender, nondistended MSK: CVA tenderness bilaterally, no midline tenderness Skin: Warm, Dry, intact, no rashes Neuro: AO x3, CN II-XII grossly intact, moves all extremities Course Orders Ordered: Discontinued Medications Sodium Chloride (Normal Saline 0.9%) 1,000 mls @ 1,000 mls/hr IV BOLUS ONE Stop: 12/13/23 22:46 Last Infusion: 12/13/23 23:16 Dose: Infused Documented By: Infusion: 12/13/23 22:20 Dose: 1,000 mls/hr Documented By: Infusion: 12/13/23 21:55 Dose: 0 mls/hr Documented By: Admin: 12/13/23 21:55 Dose: 1,000 mls/hr Documented By: PAULINO Ceftriaxone Sodium 2,000 mg/ (Sodium Chloride) 100 mls @ 200 mls/hr IV NOW ONE Stop: 12/13/23 22:32 Last Infusion: 12/13/23 23:17 Dose: Infused Documented By: Admin: 12/13/23 22:47 Dose: 200 mls/hr Documented By: PAULINO Ondansetron HCl (Ondansetron 4 Mg/2 Ml Inj) 4 mg IV NOW PRN PRN Reason: Nausea And Vomiting Ondansetron HCl (Ondansetron 4 Mg Odt) 4 mg SL NOW PRN PRN Reason: Nausea And Vomiting Vital Signs Vital signs: Vital Signs - 8 hr 12/13/23 20:06 12/13/23 20:40 12/13/23 20:40 Temperature 97.1 F L Pulse Rate 59 L 56 L Respiratory Rate 19 Blood Pressure 137/72 134/63 Pulse Oximetry 96 95 Oxygen Delivery Method Room Air Room Air 12/13/23 21:00 12/13/23 21:30 Temperature Pulse Rate 53 L 55 L Respiratory Rate 18 Blood Pressure Pulse Oximetry 94 Oxygen Delivery Method Room Air MDM - Female Genitourinary Lab Data 12/13/23 21:54 12/13/23 21:54 Labs: Lab Results 12/13/23 12/13/23 Range/Units 20:23 21:54 WBC 8.2 (4.5-11.0) X10^3/uL RBC 4.04 (4.0-5.2) X10^6/uL Hgb 12.6 (12.0-16.0) g/dL Hct 37.9 (36-46) % MCV 93.8 (80-100) fL MCH 31.2 (26-34) PG MCHC 33.3 (30-36) % RDW 14.0 (11.6-14.8) % Plt Count 245 (150-400) X10^3/uL Neut % (Auto) 74.9 (50-75) % Lymph % (Auto) 16.7 L (25-40) % [place] % (Auto) 6.4 (3-14) % Eos % (Auto) 1.7 L (2-4) % Baso % (Auto) 0.3 (0-2) % Neut # (Auto) 6200 (0038-6976) /uL Lymph # (Auto) 1400 (8093-9214) /uL [place] # (Auto) 500 (0-900) /uL Eos # (Auto) 100 (0-450) /uL Baso # (Auto) 0 (0-100) /uL Sodium 139 (137-145) mmol/L Potassium 4.1 (3.4-5.1) mmol/L Chloride 110 H (98-107) mmol/L Carbon Dioxide 27 (22-32) mmol/L BUN 14 (7-17) mg/dL Creatinine 0.63 (0.52-1.04) mg/dL Estimated GFR > 60 (>60) mL/min BUN/Creatinine Ratio 22.2 H (6-22) Glucose 112 H (80-110) mg/dL Calcium 9.4 (8.4-10.2) mg/dL Total Bilirubin 0.6 (0.2-1.3) mg/dL AST 25 (14-36) IU/L ALT 11 (<35) IU/L Alkaline Phosphatase 65 (38-126) U/L Total Protein 6.4 (6.3-8.2) g/dL Albumin 3.9 (3.5-5.0) g/dL Globulin 2.5 (1.7-4.1) g/dL Albumin/Globulin Ratio 1.6 (1.0-2.8) Ur Bilirubin Confirm Negative (Negative) Urine RBC 10-30/hpf H (0-5/HPF) Urine WBC 10-30/hpf H (0-5/HPF) Ur Squamous Epith Cells 0-1 /hpf (0-5/HPF) Urine Bacteria Moderate (10-30) H (None) Ur Culture Indicated? Cult not indicated Vol Urine Centrifuged Low vol <1ml unspun A Urine Dip Bedside Urine Glucose Negative Bedside Urine Bilirubin + 1 Bedside Urine Ketone +/- 5 Urine Specific [place] 1.025 Bedside Urine Occult Blood +++ Bedside Urine pH 5.5 Bedside Urine Protein +++ 300 Bedside Urine Urobilinogen - Negative Bedside Urine Nitrite - Negative Bedside Urine Leukocytes ++ [address] scan - abdomen/pelvis: Radiologist's Impression: PROCEDURE: CT ABDOMEN PELVIS WO CON INDICATIONS: bilat flank pain, hematuria TECHNIQUE: Axial sections were acquired from the lung bases to the pubic symphysis. Coronal and sagittal reformats were performed. For radiation dose reduction, the following was used: automated exposure control, adjustment of mA and/or kV according to patient size. COMPARISON: None. FINDINGS: Image quality: Diagnostic. Lower Chest: No significant findings. URINARY: Right Kidney: No stones or hydronephrosis. Perinephric stranding. Right Ureter: No hydroureter. Left Kidney: No stones or hydronephrosis. Perinephric stranding. Left Ureter: No hydroureter. Bladder: Normal wall thickness. No stones. ABDOMEN: Liver: No contour-deforming solid mass. Gallbladder: Removed. Biliary ducts: No biliary dilation. Pancreas: No ductal dilation. Spleen: Size is within normal limits. Adrenal Glands: No adrenal nodules. Stomach and Bowel: Normal colonic caliber, without significant wall thickening. Prominent colonic stool without obstruction. Peritoneum: No abnormal intraperitoneal fluid. No free air. Ventral Wall: No hernia. Abdominal Nodes: No enlarged retroperitoneal or mesenteric lymph nodes. Vessels: Aorta and inferior vena cava are normal in size. PELVIS: Pelvic Organs: Unremarkable. Pelvic Nodes: Unremarkable. Miscellaneous: No inguinal hernias are seen. Bones: Multilevel degenerative changes are present. IMPRESSION: No obstructing stones or hydronephrosis. Perinephric stranding is present bilaterally. While this could represent recently passed stones, recommend correlation potential infection or inflammation. Prominent colonic stool without obstruction. Dictated by: Ana Collier M.D. on 12/13/2023 at 22:24 Approved by: Ana Collier M.D. on 12/13/2023 at 22:26 [facility] Narrative Medical decision making narrative: Nontoxic patient presenting with symptoms of urinary tract infection. Did endorse back pain and has CVA tenderness bilaterally. Based on age and history of diabetes a CT ordered for further assessment. Laboratory work unremarkable. No overwhelming leukocytosis, normal kidney function. CT of the abdomen and pelvis shows stranding around the kidneys without signs of stone or abscess. Patient to be empirically treated as pyelonephritis. Since all pharmacies are closed and we do not have cefpodoxime in our Pyxis patient was given 1 time dose of Rocephin and prescription for cefpodoxime sent to pharmacy of choice. Discharge Plan Departure Patient Disposition: Home Clinical Impression: Acute pyelonephritis Instructions: DI for Kidney Infection Activity Restrictions/Additional Instructions: Your laboratory work today was normal. Based on your exam and CT your urinary tract infection may have spread to your kidneys. Finish all antibiotics as prescribed. Follow up with your primary care doctor. Prescriptions: New cefpodoxime 200 mg tablet 200 mg PO Q12H Qty: 20 0RF Rx Instructions: must administer with a meal/food No Action fluticasone propionate 110 mcg/actuation HFA aerosol inhaler 1 inh INHALATION BID PRN (Reason: Adequate Ventilation) pregabalin [Lyrica] 100 mg capsule 100 mg PO TID Qty: 90 0RF triamcinolone acetonide [Nasacort] 55 mcg aerosol,spray 1 spray intranasal DAILY Rx Instructions: administer into each nostril diltiazem HCl 240 mg capsule,extended release 24 hr 240 mg PO DAILY lamotrigine 100 mg tablet 300 mg PO DAILY Qty: 270 3RF lithium carbonate 300 mg capsule 300 mg PO BEDTIME Qty: 90 3RF Rx Instructions: Always take with food quetiapine 25 mg tablet 25 mg PO BEDTIME Qty: 90 3RF omeprazole 20 mg capsule,delayed release(DR/EC) 20 mg PO BID methocarbamol 500 mg tablet 500 mg PO QID PRN (Reason: muscle pain) atorvastatin [Lipitor] 40 MG tablet 40 mg PO HS Qty: 0 fexofenadine 180 mg tablet 180 mg PO QDAY Patient Comments: for allergies aspirin 81 mg tablet,delayed release (DR/EC) 81 mg PO QHS levothyroxine 50 mcg tablet 50 mcg PO QDAY cholecalciferol (vitamin D3) [Vitamin D3] 1,000 unit capsule 2,000 unit PO DAILY metformin 500 mg tablet 500 mg PO BID benzonatate 100 mg capsule 100 mg PO BID PRN (Reason: cough) Qty: 20 0RF fluconazole [Diflucan] 100 mg tablet 100 mg PO DAILY Qty: 1 0RF Rx Instructions: take at end of antibiotic treatment benzonatate 200 mg capsule 200 mg PO BID-TID PRN (Reason: cough) Qty: 30 0RF prednisone 20 mg tablet 40 mg PO DAILY Qty: 6 0RF Referrals: Sara Lindsey PA-C [Primary Care Provider] - Stand Alone Forms: Patient Portal/API
[2023-12-13] MEDS: SODIUM CHLORIDE 0.9% 1,000 ML 1000 ML IV (21:55)
[2023-12-13 22:13] LABS: Add Manual Diff / Slide Review NO; Basophils Absolute Auto 0 /uL (0-100); Basophils Percent Auto 0.3 % (0-2); Eosinophils Absolute Auto 100 /uL (0-450); Eosinophils Percent Auto 1.7 % (2-4); Hematocrit 37.9 % (36-46); Hemoglobin 12.6 g/dL (12.0-16.0); Lymphocytes Absolute Auto 1400 /uL (1100-4500); Lymphocytes Percent Auto 16.7 % (25-40); Mean Corpuscular HGB Conc 33.3 % (30-36); Mean Corpuscular Hemoglobin 31.2 PG (26-34); Mean Corpuscular Volume 93.8 fL (80-100); Monocytes Absolute Auto 500 /uL (0-900); Monocytes Percent Auto 6.4 % (3-14); Neutrophils Absolute Auto 6200 /uL (1500-7000); Neutrophils Percent Auto 74.9 % (50-75); Platelet Count 245 X10^3/uL (150-400); Red Blood Cell Count 4.04 X10^6/uL (4.0-5.2); White Blood Cell Count 8.2 X10^3/uL (4.5-11.0)
[2023-12-13 22:32] LABS: Alanine Aminotransferase 11 IU/L (<35); Albumin 3.9 g/dL (3.5-5.0); Albumin Globulin Ratio 1.6 (1.0-2.8); Alkaline Phosphatase 65 U/L (38-126); Aspartate Aminotransferase 25 IU/L (14-36); BUN Creatinine Ratio 22.2 (6-22); Bilirubin Total 0.6 mg/dL (0.2-1.3); Blood Urea Nitrogen 14 mg/dL (7-17); Calcium 9.4 mg/dL (8.4-10.2); Carbon Dioxide 27 mmol/L (22-32); Chloride 110 mmol/L (98-107); Estimated Glomerular Filt Rate > 60 mL/min (>60); Globulin 2.5 g/dL (1.7-4.1); Glucose 112 mg/dL (80-110); HEMOLYSIS < 15 (0-50); Potassium 4.1 mmol/L (3.4-5.1); Sodium 139 mmol/L (137-145); Total Protein 6.4 g/dL (6.3-8.2)
[2023-12-13] MEDS: cefTRIAXone 2,000 MG in SODIUM CHLORIDE 0.9% 100 ML 200 MG IV (22:47)
--- NOTE | 2023-12-14 11:01 | PC.NURSE ---
Pt's spouse called stating [facility] pharmacy does not carry cefpodoxime Rx. Dr. Grady fofana'ed call in to [facility] pharmacy gave order to Shelly in pharmacy. Cefpodoxime 200mg tab PO q12h qty:20.
== END 2023-12-13 23:22 | disposition home or self-care (01) ==
PROVIDERS: Emergency Provider Emergency Medicine; PCP Physician Assistant
DX: N10 Acute pyelonephritis (principal); R31.9 Hematuria, unspecified; M54.6 Pain in thoracic spine; Z79.899 Other long term (current) drug therapy
CPT/HCPCS: 36415; 74176; 80053; 81003; 81015; 85025; 87086; 96365; 99284; J0696

== ENCOUNTER → 2024-01-12 17:10 | Outpatient (CLI) | payer MEDICARE, OTHER, SELFPAY ==
--- NOTE | 2024-01-12 17:14 | DI.RAD.S_ITS ---
PROCEDURE: XR ELBOW RT 2V INDICATIONS: ELBOW PAIN TECHNIQUE: 2 views of the elbow were acquired. COMPARISON: None. FINDINGS: Bones: No fractures or dislocations. There is a degree of degenerative arthritis most noted on the lateral image. No suspicious bony lesions. Soft tissues: No elbow joint effusion. No suspicious soft tissue calcifications. IMPRESSION: Degenerative arthritis. No acute bony abnormality. Dictated by: Kevin Haney M.D. on 01/14/2024 at 12:53 Approved by: Kevin Haney M.D. on 01/14/2024 at 12:54
== END ==
LOC: RAD 17:13
PROVIDERS: PCP Physician Assistant; Referring Provider Physician Assistant; Visit Provider Physician Assistant
DX: M19.021 Primary osteoarthritis, right elbow (principal); M25.521 Pain in right elbow
CPT/HCPCS: 73070

== ENCOUNTER → 2024-07-29 13:56 | Outpatient (CLI) | payer MEDICARE, OTHER, SELFPAY ==
--- NOTE | 2024-07-29 13:59 | DI.US.S_ITS ---
PROCEDURE: US VENOUS INSUFFICIENCY BILAT INDICATIONS: VENOUS INSUFF,BILAT LEG EDEMA TECHNIQUE: Real time scanning was performed of the lower extremity venous system, with imaging documentation, as well as Color and pulse Doppler interrogation. COMPARISON: None. FINDINGS: RIGHT LOWER EXTREMITY: The deep veins are normally compressible, and free of intraluminal thrombus. Color and pulse Doppler demonstrate normal intravascular flow. There is normal augmentation with distal compression maneuver. Greater saphenous vein (GSV): Normally 4 mm or less in diameter, with any reflux less than 0.5 seconds. Saphenofemoral junction (SFJ): 8 mm. 1.0 second reflux. Proximal GSV: 4 mm. No reflux. Mid GSV: 3 mm. 0.6 seconds reflux. Distal GSV: 3 mm. No reflux. Calf GSV: 3 mm, and no reflux. Anterior accessory GSV (AAGSV): Anatomic variant not present across anterior thigh. Small saphenous vein (SSV): Posterior calf, draining into popliteal vein. Posterior calf: 2 mm. No reflux. Vein of Giacomini (posterior thigh connection between GSV and SSV): Anatomic variant not seen. LEFT LOWER EXTREMITY: The deep veins are normally compressible, and free of intraluminal thrombus. Color and pulse Doppler demonstrate normal intravascular flow. There is normal augmentation with distal compression maneuver. Greater saphenous vein (GSV): Normally 4 mm or less in diameter, with any reflux less than 0.5 seconds. Saphenofemoral junction (SFJ): 8 mm. 0.9 seconds reflux. Proximal GSV: 5 mm. No reflux. Mid GSV: 4 mm. No reflux. Distal GSV: 4 mm. No reflux. Calf GSV: 3 mm. 0.6 seconds reflux. Anterior accessory GSV (AAGSV): Anatomic variant not present across anterior thigh. Small saphenous vein (SSV): Posterior calf, draining into popliteal vein. Posterior calf: 2 mm. No reflux. Vein of Giacomini (posterior thigh connection between GSV and SSV): Anatomic variant not seen. IMPRESSION: Positive venous reflux in the superficial system bilaterally as above. No evidence of deep venous thrombosis Approved by: Pancho Meza M.D. on 07/30/2024 at 16:17
== END ==
LOC: US 13:58
PROVIDERS: PCP Physician Assistant; Referring Provider Internal Medicine; Visit Provider Internal Medicine
DX: I87.2 Venous insufficiency (chronic) (peripheral) (principal); R60.0 Localized edema
CPT/HCPCS: 93970

== ENCOUNTER → 2024-11-04 15:19 | Outpatient (CLI) | payer MEDICARE, OTHER, SELFPAY ==
--- NOTE | 2024-11-04 15:23 | DI.RAD.S_ITS ---
PROCEDURE: XR LUMBAR SPINE 2-3V INDICATIONS: BACK PAIN TECHNIQUE: 3 views of the lumbar spine were acquired. COMPARISON: None. FINDINGS: Bones: 5 [id number] vertebrae are present. Postsurgical change within the lumbosacral region with multiple surgical clips. Retrolisthesis of L3 on L4 measures 0.5 cm. There is otherwise normal bony alignment. Severe L3-L4 disc height loss with adjacent endplate sclerosis and anterior osteophytosis. No vertebral body compression fractures. No suspicious bony lesions. Soft tissues: Overlying bowel gas pattern is normal. No suspicious soft tissue calcifications. Right upper quadrant surgical clips. IMPRESSION: Degenerative and postsurgical change of the lumbar spine without evidence of acute osseous abnormality. Dictated by: Crescencio Garcia M.D. on 11/05/2024 at 2:53 Approved by: Crescencio Garcia M.D. on 11/05/2024 at 2:56
== END ==
PROVIDERS: PCP Family Medicine; Referring Provider Family Medicine; Visit Provider Family Medicine
DX: M54.41 Lumbago with sciatica, right side (principal); M47.816 Spondylosis without myelopathy or radiculopathy, lumbar region; G89.29 Other chronic pain
CPT/HCPCS: 72100